=== PATIENT | female | born 1930 | race Caucasian/White ===

== ENCOUNTER 2016-06-20 09:24 | Outpatient (CLI) | payer MEDICARE, OTHER | END 2016-06-20 09:25 | disposition home or self-care (01) | DX: E78.5 Hyperlipidemia, unspecified (principal) ==

== ENCOUNTER 2016-08-07 14:50 | Outpatient (CLI) | payer MEDICARE, OTHER | END 2016-08-07 14:51 | disposition home or self-care (01) | DX: I10 Essential (primary) hypertension (principal); I48.2 Chronic atrial fibrillation ==

== ENCOUNTER 2016-11-14 16:15 | Outpatient (CLI) | payer MEDICARE, OTHER | END 2016-11-14 16:16 | LOC: LAB.R 16:15 | PROVIDERS: ATTEND Internal Medicine | DX: R30.0 Dysuria (principal) | CPT/HCPCS: 87077; 87086 ==

== ENCOUNTER 2016-12-11 11:35 | Outpatient (CLI) | payer MEDICARE, OTHER | END 2016-12-11 11:36 | disposition critical access hospital (66) | LOC: EMS 11:35 | PROVIDERS: ATTEND Surgery | DX: R06.00 Dyspnea, unspecified (principal); R07.1 Chest pain on breathing | CPT/HCPCS: A0425; A0427 ==

== ENCOUNTER 2016-12-11 12:07 | Inpatient (IN) | payer MEDICARE, OTHER ==
--- NOTE | 2016-12-11 12:19 | ED Physician Documentation ---
PD HPI DYSPNEA - Stated complaint Stated Complaint: DIF BREATHING - Chief complaint Chief Complaint: Resp - History obtained from History obtained from: Patient - History of Present Illness Timing - onset: How many days ago (having cough and malaise, some chills the past 2 days. Had been in [facility] for a week for pneumonia and discharged 5 days ago. Was weak and needing walker but felt improved. Mostly in bed since been home. Having cough and increasing dyspnea the past 2 days. She is concerned about recurrent pneumonia. Using MDI occasionally at home. Has not been on oxygen. Pre-illness level of function was ambulatory without assistance , able to get out of house, and no exertional dyspnea.) Timing - onset during: Rest, Light activity Timing - duration: Days (2 days of worsening dyspnea and cough again) Timing - details: Gradual onset, Waxing and waning Inciting event(s): URI (recent Dx pneumonia, in hospital for a week.) Improved by: O2, Sitting up. No: Inhaler/neb Worsened by: Exertion (walking to bathroom), Laying flat, Coughing Associated symptoms: Cough, Wheezing (tightness with breathing intermittently). No: Fever (but feels chills for 2 days), Hemoptysis Similar symptoms before: Diagnosis (pneumonia about 10 days ago) Recently seen: Admitted (see above) Review of Systems Constitutional: reports: Chills. denies: Fever Nose: reports: Congestion Throat: denies: Sore throat Cardiac: denies: Chest pain / pressure Respiratory: reports: Dyspnea, Cough, Wheezing GI: denies: Nausea, Vomiting, Diarrhea : denies: Dysuria, Frequency Skin: reports: Rash (she says she has yeat infection crural area). denies: Lesions Neurologic: reports: Generalized weakness. denies: Focal weakness, Numbness, Near syncope, Altered mental status, Headache Endocrine: reports: Easy bruising / bleeding Immunocompromised: denies: Immunocompromised PD PAST MEDICAL HISTORY - Past Medical History Past Medical History: Yes Cardiovascular: Hypertension, Coronary artery disease, Peripheral Vascular Disease, Atrial fibrillation, Other Respiratory: None Neuro: None Endocrine/Autoimmune: None GI: GERD, Other : Other HEENT: Glaucoma Derm: None - Past Surgical History Past Surgical History: Yes General: Cholecystectomy, Bowel surgery /BLANKET [employer]KER: Hysterectomy, Oophrectomy Cardiovascular: Other HEENT: Cataracts, Tonsil/Adenoidectomy - Present Medications Home Medications: Ambulatory Orders Medication Instructions Recorded Confirmed Hydrochlorothiazide 12.5 mg PO 07/16/13 07/22/14 Losartan [Cozaar] 50 mg PO DAILY 07/16/13 07/22/14 Pravastatin Sodium [Pravachol] 40 mg PO DAILY 07/16/13 12/11/16 Spironolactone 25 mg PO DAILY 07/16/13 12/11/16 Rivaroxaban [Xarelto] 15 mg PO DAILY 07/19/13 12/11/16 Diltiazem HCl [Taztia Xt] 360 mg PO DAILY 12/11/16 12/11/16 Furosemide 12/11/16 - Allergies Allergies/Adverse Reactions: Allergies Allergy/AdvReac Type Severity Reaction Status Date / Time streptomycin Allergy Mild Unknown Verified 07/22/14 10:24 ciprofloxacin [From Cipro] Allergy Unknown Unknown Verified 07/16/13 15:59 Penicillins Allergy Unknown Unknown Verified 07/16/13 15:59 Sulfa (Sulfonamide Allergy Unknown Unknown Verified 07/16/13 15:59 Antibiotics) tetanus toxoid, adsorbed Allergy Unknown Verified 07/22/14 10:24 - Living Situation Living Situation: reports: Alone (has grandchildren with her currently to help) Living Arrangement: reports: At home - Social History Does the pt smoke?: No Smoking Status: Never smoker Does the pt drink ETOH?: No PD ED PE NORMAL - Vitals Vital signs reviewed: Yes - General General: Alert and oriented X 3, No acute distress, Other (frail appearance) - HEENT HEENT: No: Pharynx benign (had uniform redness with some irritation appearance most likely thrush) - Neck Neck: Supple, no meningeal sign, No adenopathy - Cardiac Cardiac: RRR, No murmur - Respiratory Respiratory: No respiratory distress, Other (some congestion right lower and scattered wheezing noted. ) - Abdomen Abdomen: Soft, Non tender - Female Female : Deferred - Rectal Rectal: Deferred - Back Back: No CVA TTP - Derm Derm: Normal color, Warm and dry - Neuro Neuro: Alert and oriented X 3, No motor deficit, Normal speech Results - Vitals Vitals: Vital Signs - 24 hr 12/11/16 12/11/16 12:08 12:58 Temperature 37.7 C H Heart Rate 96 105 H Respiratory 20 22 Rate Blood Pressure 155/67 H O2 Saturation 93 Oxygen O2 Source Nasal cannula - Labs Labs: Laboratory Tests 12/11/16 12/11/16 12/11/16 12:47 12:47 12:47 WBC 21.6 H RBC 4.30 Hgb 12.8 Hct 38.6 MCV 89.7 MCH 29.9 MCHC 33.3 RDW 15.6 H Plt Count 303 MPV 8.3 Neut # 18.6 H Lymph # 0.8 L [place] # 2.1 H Eos # 0.0 Baso # 0.0 Absolute Nucleated RBC 0.00 Nucleated RBCs 0.0 Manual Slide Review Indicated WBC Morphology INCREASED PMNS Platelet Estimate NORMAL (130-450,000) Platelet Morphology NORMAL APPEARANCE RBC Morph Micro Appear NORMAL APPEARANCE Sodium 133 L Potassium 3.1 L Chloride 94 L Carbon Dioxide 28 Anion Gap 11.0 BUN 14 Creatinine 0.8 Estimated GFR (MDRD) 68 L Glucose 124 H Lactic Acid Calcium 7.3 L Total Bilirubin 1.0 AST 19 ALT 12 Alkaline Phosphatase 79 Troponin I < 0.04 B-Natriuretic Peptide Total Protein 6.8 Albumin 3.3 Globulin 3.5 Albumin/Globulin Ratio 0.9 L Lipase 139 H 12/11/16 12/11/16 12:47 12:47 WBC RBC Hgb Hct MCV MCH MCHC RDW Plt Count MPV Neut # Lymph # [place] # Eos # Baso # Absolute Nucleated RBC Nucleated RBCs Manual Slide Review WBC Morphology Platelet Estimate Platelet Morphology RBC Morph Micro Appear Sodium Potassium Chloride Carbon Dioxide Anion Gap BUN Creatinine Estimated GFR (MDRD) Glucose Lactic Acid 1.8 Calcium Total Bilirubin AST ALT Alkaline Phosphatase Troponin I B-Natriuretic Peptide 421 H Total Protein Albumin Globulin Albumin/Globulin Ratio Lipase PD MEDICAL DECISION MAKING - ED course Complexity details: reviewed old records (record from [facility] admission, CXR showing mild interstitial changes, trace effusions, no focal infiltrate. WBC 12 at admission and 10.8 on . Labs otherwise good. Rx with Levaquin in hospital. ), reviewed results, re-evaluated patient, d/w patient, d/w behavioral consultant (Hopsitalist) Departure - Departure Disposition: 66 [facility] DC/Xfer Clinical Impression: Recurrent pneumonia Dyspnea Qualifiers: Dyspnea type: dyspnea on exertion Qualified Code(s): R06.09 - Other forms of dyspnea Leukocytosis Qualifiers: Leukocytosis type: unspecified Qualified Code(s): D72.829 - Elevated white blood cell count, unspecified Condition: Stable Record reviewed to determine appropriate education?: Yes
[2016-12-11] MEDS ORDERED: ACETAMINOPHEN 325 MG TABLET PO STA (12:40)
[2016-12-11] MEDS ORDERED: ALBUTEROL NEB 2.5 MG/3 ML INH STA (12:42)
[2016-12-11] MEDS ORDERED: ACETAMINOPHEN 325 MG TABLET PO ONE ×2 (12:43→12:44)
[2016-12-11] MEDS ORDERED: ALBUTEROL NEB 2.5 MG/3 ML INH ONE (12:54)
[2016-12-11 13:10] LABS: ALBUMIN/GLOBULIN RATIO 0.9 (1.0-2.2); CALCIUM 7.3 mg/dL (8.5-10.3); CREATININE 0.8 mg/dL (0.4-1.0); POTASSIUM 3.1 mmol/L (3.5-5.0); TOTAL PROTEIN 6.8 g/dL (6.7-8.2)
[2016-12-11 13:14] LABS: BASOPHILS % (AUTO) 0.1 %; HCT - HEMATOCRIT 38.6 % (37.0-47.0); HGB - HEMOGLOBIN 12.8 g/dL (12.0-16.0); LYMPHOCYTES # (AUTO) 0.8 10^3/uL (1.5-3.5); LYMPHOCYTES % (AUTO) 3.7 %; MEAN CORPUSCULAR HEMOGLOBIN 29.9 pg (27.0-31.0); MEAN CORPUSCULAR HGB CONC 33.3 g/dL (32.0-36.0); MEAN CORPUSCULAR VOLUME 89.7 fL (81.0-99.0); MEAN PLATELET VOLUME 8.3 fL (7.9-10.8); MONOCYTES # (AUTO) 2.1 10^3/uL (0.0-1.0); MONOCYTES % (AUTO) 9.9 %; NEUTROPHILS # (AUTO) 18.6 10^3/uL (1.5-6.6); NEUTROPHILS % (AUTO) 86.3 %; RED CELL DISTRIBUTION WIDTH 15.6 % (12.0-15.0); UNCORRECTED WHITE BLOOD COUNT 21.6 x10^3/uL; WHITE BLOOD COUNT 21.6 x10^3/uL (4.8-10.8)
[2016-12-11] MEDS ORDERED: ACETAMINOPHEN 160 MG/5 ML SUSP UDC ONE (13:31)
[2016-12-11 13:40] LABS: PLATELET ESTIMATE, MANUAL NORMAL (130-450,000) (NORMAL); PLATELET MORPHOLOGY NORMAL APPEARANCE (NORMAL)
[2016-12-11 13:41] LABS: WBC MORPHOLOGY (MULTIPLE) INCREASED PMNS (NORMAL)
[2016-12-11] MEDS ORDERED: FLUCONAZOLE 100 MG TABLET PO STA (13:49)
[2016-12-11] MEDS ORDERED: cefTRIAXone 1 GM in SODIUM CHLORIDE 0.9% MINIBAG 100 ML IV STA (13:49)
[2016-12-11] MEDS ORDERED: AZITHROMYCIN INJ 500 MG in SODIUM CHLORIDE 0.9% 250 ML IV STA (13:49)
[2016-12-11] MEDS ORDERED: FLUCONAZOLE 100 MG TABLET ONE (13:55)
[2016-12-11] MEDS ORDERED: cefTRIAXone 1 GM VIAL ONE (13:56)
--- NOTE | 2016-12-11 14:03 | XRAY Preliminary Report ---
Exam: XR Chest 2 View PA/LAT IMPRESSION: 1. New mild cardiomegaly. 2. New bibasilar infiltrates with increasing small bilateral pleural effusions. [facility] SITE ID: [id number]
--- NOTE | 2016-12-11 14:11 | XRAY Report ---
EXAM: CHEST RADIOGRAPHY EXAM DATE: 12/11/2016 01:19 PM. CLINICAL HISTORY: Recurrent cough/dyspnea; recent pneumonia. COMPARISON: 07/23/2014. TECHNIQUE: 2 views. FINDINGS: Lungs/Pleura: Increasing small bilateral pleural effusions. New faint bibasilar airspace infiltrates bilaterally. No vascular congestion or pneumothorax. Mediastinum: New mild cardiomegaly. Stable mild tracheal deviation to the right since 02/10/2008 cons istent with benign etiology, such as a substernal goiter. Other: Chronic left rotator cuff tear. IMPRESSION: 1. New mild cardiomegaly. 2. New bibasilar infiltrates with increasing small bilateral pleural effusions. [facility] Referring Provider Line: [phone] SITE ID: [id number]
[2016-12-11] MEDS ORDERED: ONDANSETRON ODT 4 MG TABLET TL PRN (18:37)
[2016-12-11] MEDS ORDERED: POTASSIUM CHLORIDE 20 MEQ TABLET PO SCH (19:00)
[2016-12-11] MEDS ORDERED: FUROSEMIDE 40 MG/4 ML VIAL IVP SCH (19:00)
[2016-12-11] MEDS ORDERED: MAGNESIUM SULFATE 2 GRAM 50 ML IV SCH (19:08)
[2016-12-11] MEDS: SODIUM CHLORIDE FLUSH 0.9% 10 ML SYRINGE IVP SCH (20:12)
[2016-12-11] MEDS: SODIUM CHLORIDE FLUSH 0.9% 10 ML SYRINGE IVP PRN (20:12)
[2016-12-11] MEDS: NYSTATIN CREAM 15 GM TUBE TOP SCH (20:12)
[2016-12-11 23:00] LABS: BILIRUBIN,URINE NEGATIVE (NEGATIVE)
[2016-12-11 23:02] LABS: UA w/ MICROSCOPIC CHARGE YES
[2016-12-11 23:07] LABS: UR CULTURE IF IND NOT INDICATED; WBC,URINE 0-3 /HPF (0-5)
[2016-12-12] MEDS ORDERED: oxyCODONE 5 MG TABLET PO PRN (02:31)
[2016-12-12] MEDS ORDERED: ACETAMINOPHEN 325 MG TABLET PO PRN (02:31)
[2016-12-12] MEDS ORDERED: ZINC OXIDE 20% OINT 28.35 GM TUBE TOP PRN (05:00)
[2016-12-12 05:50] LABS: CALCIUM 6.8 mg/dL (8.5-10.3); CREATININE 0.9 mg/dL (0.4-1.0); POTASSIUM 2.6 mmol/L (3.5-5.0)
[2016-12-12 06:00] LABS: BASOPHILS % (AUTO) 0.5 %; HCT - HEMATOCRIT 33.7 % (37.0-47.0); HGB - HEMOGLOBIN 11.4 g/dL (12.0-16.0); LYMPHOCYTES % (AUTO) 8.1 %; MEAN CORPUSCULAR HEMOGLOBIN 30.5 pg (27.0-31.0); MEAN CORPUSCULAR HGB CONC 33.9 g/dL (32.0-36.0); MEAN CORPUSCULAR VOLUME 89.9 fL (81.0-99.0); MEAN PLATELET VOLUME 8.3 fL (7.9-10.8); MONOCYTES % (AUTO) 12.6 %; NEUTROPHILS % (AUTO) 78.8 %; RED BLOOD COUNT 3.75 10^6/uL (4.20-5.40); RED CELL DISTRIBUTION WIDTH 15.3 % (12.0-15.0); UNCORRECTED WHITE BLOOD COUNT 15.4 x10^3/uL; WHITE BLOOD COUNT 15.4 x10^3/uL (4.8-10.8)
[2016-12-12 06:24] LABS: BAND NEUTROPHILS % (MANUAL) 6 %; LYMPHOCYTES % (MANUAL) 11 %; NEUTROPHILS % (MANUAL) 74 %; NP AUTO DIFFERENTIAL? YES; NP MAN DIFFERENTIAL? NO; PLATELET ESTIMATE, MANUAL NORMAL (130-450,000) (NORMAL); TOTAL CELLS COUNTED 100
[2016-12-12] MEDS: SODIUM CHLORIDE FLUSH 0.9% 10 ML SYRINGE IVP SCH ×3 (06:38→18:05)
[2016-12-12] MEDS: POTASSIUM CHLOR 10 MEQ/100 ML 100 ML IV SCH ×2 (07:14→09:05)
[2016-12-12] MEDS: SODIUM CHLORIDE FLUSH 0.9% 10 ML SYRINGE IVP PRN ×2 (07:15→23:44)
[2016-12-12 07:27] LABS: MAGNESIUM 1.1 mg/dL (1.7-2.8); PHOSPHORUS 3.7 mg/dL (2.5-4.6)
[2016-12-12 07:45] LABS: VBG PH 7.478 (7.31-7.41)
[2016-12-12 07:46] LABS: CALCIUM, IONIZED 0.87 mmol/L (1.15-1.33)
--- NOTE | 2016-12-12 08:25 | HISTORY & PHYSICAL EXAMINATION ---
CHIEF COMPLAINT: Increased shortness of breath and cough. HISTORY OF PRESENT ILLNESS: The patient is an 86-year-old female who presents with increased shortness of breath, poor appetite, and chest discomfort. She has a history of paroxysmal atrial fibrillation on rivaroxaban, hypertension, peripheral vascular disease, and was recently admitted to [facility] for a diagnosis of pneumonia from November 29 to December 06. The patient was discharged home with her grandchildren who are staying at her house to provide 24-7 supervision. The patient states she has been sleeping on the sofa because she is unable to get upstairs to her bedroom. She reports persistent shortness of breath "all the way across her chest" and states "it just doesn't feel right. " She has had a poor appetite and states she is not eating much. She denies dysphagia. She thinks that her shortness of breath may be worse with lying down , but has some difficulty providing details. She does not think she has had a fever. Taking a deep breath causes a "little pain." She has had no nausea or vomiting, some diarrhea. She reports chronic lower extremity edema and a painful , raw rash between her legs. She has been using cream for this with no improvement. ALLERGIES: INCLUDE 1. PENICILLIN WHICH SHE STATES CAUSES HER THROAT TO SWELL UP. 2. AMLODIPINE. 3. SULFA ANTIBIOTICS. 4. TETANUS. 5. CIPROFLOXACIN WHICH CAUSES A RASH. MEDICATIONS: Include 1. Albuterol. 2. Famotidine. 3. Tylenol. 4. Lasix 40 mg daily as needed. 5. Losartan 50 mg twice a day. 6. Metoprolol 25 mg daily. 7. Pravastatin 40 mg daily. 8. Rivaroxaban 15 mg daily. 9. Timolol maleate 0.5% ophthalmic solution. 10. Antibiotics completed 2 days ago include levofloxacin and metronidazole. 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 PAST SURGICAL HISTORY: Includes ex lap for small bowel obstruction in 2013, appendectomy, carotid endarterectomy, laparotomy, rectal prolapse repair, total abdominal hysterectomy and BSO. SOCIAL HISTORY: The patient is . She lives independently. Has family in the area, grandchildren are staying with her. She has a remote 15-pack year history, quit in 1985. Alcohol occasional. FAMILY HISTORY: Mother had cirrhosis, father had heart disease. REVIEW OF SYSTEMS: GENERAL: The patient denies weight loss. She does have weakness. Denies fever or night sweats. HEENT: Negative. CARDIOVASCULAR: Denies chest pain, has chronic lower extremity edema which is unchanged. RESPIRATORY: See HPI. GI: Negative. GENITOURINARY: Chronic incontinence. Has no dysuria or frequency. MUSCULOSKELETAL: Negative. SKIN: Reports rash in groin which is "raw and painful" per patient. PSYCHIATRIC: Denies depression or anxiety. ENDOCRINE: Negative. EXAMINATION: VITAL SIGNS: Temperature is 37.3, heart rate 91 to 105, blood pressure 142/60, respiratory rate 16, oxygen saturation 93% on room air. GENERAL: The patient is a pleasant elderly female who appears stated age. She is alert, oriented, in no acute distress. HEENT: Pupils are equal, round, reactive to light. EOMI, anicteric. No nystagmus. Oropharynx is benign. NECK: Supple without adenopathy. HEART: Tachycardic, regular, no murmurs, rubs, or gallops appreciated. LUNGS: No crackles, rhonchi, or wheeze appreciated. The patient did have coughing paroxysm with taking a deep inspiration. ABDOMEN: Soft, nontender, nondistended. No hepatosplenomegaly. Positive bowel tones. EXTREMITIES: 2 to 3+ pitting edema. No clubbing or cyanosis. Nontender. SKIN: The patient has an erythematous rash in her groin. NEUROLOGIC: The patient is alert and oriented x3. She is moving all extremities and has normal speech. PSYCHIATRIC: Normal affect, good eye contact. LABORATORY DATA: Sodium is 133, potassium 3.1, BUN is 14, creatinine 0.8, glucose is 124, lactate is 1.8. BNP 421, albumin 3.3. White blood count is 21.6 , hematocrit is 38.6, platelet count is 303. Chest x-ray which was personally reviewed and interpreted shows small bilateral pleural effusions. No obvious infiltrate. Mild cardiomegaly with no obvious vascular congestion. ASSESSMENT AND PLAN: The patient is an 86-year-old female who was recently admitted to [facility] and treated for pneumonia. She has been home since December 06 and feels that she has declined. Continues to have shortness of breath, weakness, and poor appetite. Will order physical therapy and occupational consults. 1. Failure to thrive. Patient is having difficulty getting around, unable to take the stairs to her room and has been sleeping on the couch. She reports increased neck, back and right shoulder pain. Will order PT/ OT consult. Would likely benefit from retirement facility vs [facility] pt/ot. 2. Pneumonia. Patient recently treated for community acquired pneumonia, cxr not impressive for persistent or recurrent pna. She does c/o shortness of breath. No hypoxia. Chest x-ray does not suggest worsening of recently treated pneumonia. She did receive ceftriaxone and azithromycin in the Emergency Department. Will monitor overnight prior to determining if antibiotics need to be continued. She does have an ALLERGY TO PENICILLIN WHICH CAUSES THROAT SWELLING. I will consider an alternative antibiotic therapy if indicated. Repeat CBC in the a.m. 3. Mild cardiomegaly and elevated BNP and lower extremity edema. I suspect patient has some degree of decompensated congestive heart failure. Will avoid IV fluid, give Lasix 40 mg IV x1, low salt diet. Request cardiac echo to further evaluate. I do not see that this has been done previously. 4. Hypokalemia and hypomagnasemia replace IV and PO 5. CODE STATUS: THE PATIENT IS DO NOT RESUSCITATE PER DISCUSSION WITH PATIENT. AMENA
[2016-12-12] MEDS: cefTRIAXone 1 GM in SODIUM CHLORIDE 0.9% MINIBAG 100 ML IV SCH (08:53)
[2016-12-12] MEDS: POLYETHYLENE GLYCOL 3350 17 GM PACKET PO SCH (08:53)
[2016-12-12] MEDS: NYSTATIN CREAM 15 GM TUBE TOP SCH ×2 (08:53→22:27)
[2016-12-12] MEDS: [UNRECOGNIZED DRUG - OTHER] PO SCH (08:53)
[2016-12-12] MEDS: PRAVASTATIN 40 MG TABLET PO SCH (08:54)
[2016-12-12] MEDS: SPIRONOLACTONE 25 MG TABLET PO SCH (08:54)
[2016-12-12] MEDS: RIVAROXABAN 15 MG TABLET PO SCH (08:54)
--- NOTE | 2016-12-12 12:17 | PROVIDER PROGRESS NOTE ---
Assessment/Plan - Problem List (1) Hypomagnesemia Assessment/Plan: see below (2) Hypokalemia due to loss of potassium Assessment/Plan: see below (3) Hx: recurrent pneumonia Assessment/Plan: see below (4) Atrial fibrillation Assessment/Plan: Plan Replace k/mag IV and PO, repeat labs at 6pm PT/OT consult and [facility] today and resume outpt oral lasix Continue Diltiazem 120 mg po daily. change to inpt status, due to electrolyte imbalance and need for IV replacement and monitoring - Current Meds Current Meds: Current Medications Generic Name Dose Route Start Last Admin Trade Name Freq PRN Reason Stop Dose Admin Diltiazem HCl 120 mg 12/12/16 09:00 12/12/16 08:53 Cardizem Cd PO 120 mg DAILY CARMELO Administration Ceftriaxone Sodium 1 gm/ 100 mls @ 200 mls/hr 12/12/16 09:00 12/12/16 08:53 Sodium Chloride IV 200 mls/hr DAILY CARMELO Administration Nystatin 1 applic 12/11/16 21:00 12/12/16 08:53 Mycostatin Cream TOP 1 applic BID CARMELO Administration Polyethylene Glycol 17 gm 12/12/16 09:00 12/12/16 08:53 Miralax PO 17 gm DAILY CARMELO Administration Pravastatin Sodium 40 mg 12/12/16 09:00 12/12/16 08:54 Pravachol PO 40 mg DAILY CARMELO Administration Rivaroxaban 15 mg 12/12/16 09:00 12/12/16 08:54 Xarelto PO 15 mg DAILY CARMELO Administration Sodium Chloride 10 ml 12/11/16 15:24 12/12/16 07:15 Normal Saline Flush 0.9% IVP 10 ml PRN PRN Administration NEEDED PER PROVIDER ORDERS Sodium Chloride 10 ml 12/11/16 22:00 12/12/16 06:38 Normal Saline Flush 0.9% IVP 10 ml Q8HR CARMELO Administration Spironolactone 25 mg 12/12/16 09:00 12/12/16 08:54 Aldactone PO 25 mg DAILY CARMELO Administration - Lab Result Lab results reviewed: Yes Fish Bone Diagrams: 12/12/16 05:30 12/12/16 05:30 - Additional Planning My Orders: My Active Orders 12/12/16 09:00 cefTRIAXone [Rocephin] 1 gm Sodium Chloride 0.9% Minibag [Normal Saline 0.9% Minibag] 100 ml IV DAILY 12/12/16 12:04 Potassium Chloride [K-Dur] 20 meq PO TID 12/12/16 18:00 Chem 8 [BMP - BASIC METABOLIC PANEL] [CHEM] Timed MAGNESIUM [CHEM] Timed Subjective - Subjective Patient Reports: Resting Comfortably (pt states sob is at baseline and that her sob yesterday was caused by her neck/ shoulder pain that was worse after sleeping on her couch for the past couple days.) Objective Vital Signs: Vital Signs - 24 hr 12/12/16 07:56 Temperature 37.0 C Heart Rate [ 109 H Brachial] Respiratory 20 Rate Blood Pressure 119/73 [Left Brachial artery] O2 Saturation 92 Oxygen O2 Source Room air General: Alert, Oriented x3 Cardiovascular: Other (tachy, irregular) Respiratory: Chest non-tender, No respiratory distress, Breath sounds nml Abdomen: Normal bowel sounds, Soft, No tenderness Extremities: No edema, No tenderness/swelling - Results Results: Laboratory Results WBC 15.4 x10^3/uL (4.8-10.8) H 12/12/16 05:30 RBC 3.75 10^6/uL (4.20-5.40) L 12/12/16 05:30 Hgb 11.4 g/dL (12.0-16.0) L 12/12/16 05:30 Hct 33.7 % (37.0-47.0) L 12/12/16 05:30 MCV 89.9 fL (81.0-99.0) 12/12/16 05:30 MCH 30.5 pg (27.0-31.0) 12/12/16 05:30 MCHC 33.9 g/dL (32.0-36.0) 12/12/16 05:30 RDW 15.3 % (12.0-15.0) H 12/12/16 05:30 Plt Count 252 10^3/uL (130-450) 12/12/16 05:30 MPV 8.3 fL (7.9-10.8) 12/12/16 05:30 Neut # Not Reportable 12/12/16 05:30 Lymph # Not Reportable 12/12/16 05:30 [place] # Not Reportable 12/12/16 05:30 Eos # Not Reportable 12/12/16 05:30 Baso # Not Reportable 12/12/16 05:30 Absolute Nucleated RBC Not Reportable 12/12/16 05:30 Total Counted 100 12/12/16 05:30 Band Neuts % (Manual) 6 % (0-10) 12/12/16 05:30 Neutrophils # (Manual) 12.3 10^3/uL (1.5-6.6) H 12/12/16 05:30 Lymphocytes # (Manual) 1.7 10^3/uL (1.5-3.5) 12/12/16 05:30 Monocytes # (Manual) 1.4 10^3/uL (0.0-1.0) H 12/12/16 05:30 Nucleated RBCs Not Reportable 12/12/16 05:30 Differential Comment MANUAL DIFFERENTIAL 12/12/16 05:30 Manual Slide Review Indicated 12/11/16 12:47 WBC Morphology INCREASED PMNS (NORMAL) 12/11/16 12:47 Platelet Estimate NORMAL (130-450,000) (NORMAL) 12/12/16 05:30 Platelet Morphology NORMAL APPEARANCE (NORMAL) 12/11/16 12:47 RBC Morph Micro Appear NORMAL APPEARANCE (NORMAL) 12/12/16 05:30 VBG pH 7.478 (7.31-7.41) H 12/12/16 07:08 Ionized Calcium 0.87 mmol/L (1.15-1.33) L 12/12/16 07:08 Sodium 135 mmol/L (135-145) 12/12/16 05:30 Potassium 2.6 mmol/L (3.5-5.0) L 12/12/16 05:30 Chloride 91 mmol/L (101-111) L 12/12/16 05:30 Carbon Dioxide 31 mmol/L (21-32) 12/12/16 05:30 Anion Gap 13.0 (6-13) 12/12/16 05:30 BUN 13 mg/dL (6-20) 12/12/16 05:30 Creatinine 0.9 mg/dL (0.4-1.0) 12/12/16 05:30 Estimated GFR (MDRD) 60 (>89) L 12/12/16 05:30 Glucose 90 mg/dL (70-100) 12/12/16 05:30 Lactic Acid 1.8 mmol/L (0.5-2.2) 12/11/16 12:47 Calcium 6.8 mg/dL (8.5-10.3) L 12/12/16 05:30 Phosphorus 3.7 mg/dL (2.5-4.6) 12/12/16 07:08 Magnesium 1.1 mg/dL (1.7-2.8) L 12/12/16 07:08 Total Bilirubin 1.0 mg/dL (0.2-1.0) 12/11/16 12:47 AST 19 IU/L (10-42) 12/11/16 12:47 ALT 12 IU/L (10-60) 12/11/16 12:47 Alkaline Phosphatase 79 IU/L (42-121) 12/11/16 12:47 Troponin I < 0.04 ng/mL (<0.49) 12/11/16 12:47 B-Natriuretic Peptide 421 pg/mL (5-100) H 12/11/16 12:47 Total Protein 6.8 g/dL (6.7-8.2) 12/11/16 12:47 Albumin 3.3 g/dL (3.2-5.5) 12/11/16 12:47 Globulin 3.5 g/dL (2.1-4.2) 12/11/16 12:47 Albumin/Globulin Ratio 0.9 (1.0-2.2) L 12/11/16 12:47 Lipase 139 U/L (22-51) H 12/11/16 12:47 Urine Color YELLOW 12/11/16 22:40 Urine Clarity HAZY (CLEAR) 12/11/16 22:40 Urine pH 6.0 PH (5.0-7.5) 12/11/16 22:40 Ur Specific [place] <=1.005 (1.002-1.030) 12/11/16 22:40 Urine Protein NEGATIVE mg/dL (NEGATIVE) 12/11/16 22:40 Urine Glucose (UA) NEGATIVE mg/dL (NEGATIVE) 12/11/16 22:40 Urine Ketones NEGATIVE mg/dL (NEGATIVE) 12/11/16 22:40 Urine Occult Blood NEGATIVE (NEGATIVE) 12/11/16 22:40 Urine Nitrite NEGATIVE (NEGATIVE) 12/11/16 22:40 Urine Bilirubin NEGATIVE (NEGATIVE) 12/11/16 22:40 Urine Urobilinogen 0.2 (NORMAL) E.U./dL (NORMAL) 12/11/16 22:40 Ur Leukocyte Esterase TRACE (NEGATIVE) H 12/11/16 22:40 Urine RBC 0-5 /HPF (0-5) 12/11/16 22:40 Urine WBC 0-3 /HPF (0-5) 12/11/16 22:40 Ur Squamous Epith Cells MANY Squamous (<= Few) H 12/11/16 22:40 Urine Bacteria Few /HPF (None Seen) 12/11/16 22:40 Ur Microscopic Review INDICATED 12/11/16 22:40 Urine Culture Comments NOT INDICATED 12/11/16 22:40 - Procedures Procedures: Procedures ENDOSC POLYPECTOMY OF LG INTEST (07/19/13)
[2016-12-12] MEDS: POTASSIUM CHLORIDE 20 MEQ TABLET PO SCH ×3 (12:37→22:28)
[2016-12-12] MEDS ORDERED: MAGNESIUM SULFATE 1 GM in SODIUM CHLORIDE 0.9% 50 ML IV ONE (16:30)
[2016-12-12 20:14] LABS: CALCIUM 6.9 mg/dL (8.5-10.3); CREATININE 1.1 mg/dL (0.4-1.0); MAGNESIUM 1.6 mg/dL (1.7-2.8); POTASSIUM 3.6 mmol/L (3.5-5.0)
[2016-12-12] MEDS ORDERED: MAGNESIUM SULFATE 2 GRAM 50 ML IV SCH (22:47)
[2016-12-12] MEDS ORDERED: CALCIUM GLUCONATE 2,000 MG in SODIUM CHLORIDE 0.9% 100ML 100 ML IV SCH (22:48)
[2016-12-13] MEDS: POTASSIUM CHLORIDE 20 MEQ TABLET PO SCH ×2 (05:50→13:44)
[2016-12-13] MEDS: SODIUM CHLORIDE FLUSH 0.9% 10 ML SYRINGE IVP SCH (05:50)
[2016-12-13 06:35] LABS: BUN - BLOOD UREA NITROGEN 16 mg/dL (6-20); CALCIUM 7.1 mg/dL (8.5-10.3); CARBON DIOXIDE - CO2 31 mmol/L (21-32); CHLORIDE 94 mmol/L (101-111); CREATININE 0.9 mg/dL (0.4-1.0); GFR - MDRD 60 (>89); GLUCOSE 93 mg/dL (70-100); POTASSIUM 3.3 mmol/L (3.5-5.0); SODIUM 134 mmol/L (135-145)
[2016-12-13 06:44] LABS: CALCIUM, IONIZED 0.91 mmol/L (1.15-1.33); VBG PH 7.471 (7.31-7.41)
[2016-12-13 06:58] LABS: MAGNESIUM 1.9 mg/dL (1.7-2.8); PHOSPHORUS 3.1 mg/dL (2.5-4.6)
[2016-12-13] MEDS: RIVAROXABAN 15 MG TABLET PO SCH (08:22)
[2016-12-13] MEDS: cefTRIAXone 1 GM in SODIUM CHLORIDE 0.9% MINIBAG 100 ML IV SCH (08:23)
[2016-12-13] MEDS: [UNRECOGNIZED DRUG - OTHER] PO SCH (08:23)
[2016-12-13] MEDS: SPIRONOLACTONE 25 MG TABLET PO SCH (08:23)
[2016-12-13] MEDS: PRAVASTATIN 40 MG TABLET PO SCH (08:23)
[2016-12-13] MEDS: NYSTATIN CREAM 15 GM TUBE TOP SCH (08:25)
[2016-12-13] MEDS: POLYETHYLENE GLYCOL 3350 17 GM PACKET PO SCH (08:26)
[2016-12-13] MEDS ORDERED: POTASSIUM CHLORIDE 20 MEQ TABLET PO SCH (10:45)
--- NOTE | 2016-12-13 12:00 | Discharge Plan ---
Discharge Plan Disposition: 03 SNF DC/Xfer Condition: Stable Diet: Low Sodium Activity Restrictions: No Restrictions Weight Bearing: Full Weight No Smoking: If you smoke, Please STOP! Call for help.
[2016-12-13 14:36] VITALS: BP 142/74
--- NOTE | 2016-12-15 09:56 | DISCHARGE SUMMARY ---
DISCHARGE DIAGNOSES: 1. Hypokalemia. 2. Hypomagnesemia. 3. Failure to thrive and generalized weakness. 4. Recent history of pneumonia. 5. Atrial fibrillation. BRIEF HISTORY OF PRESENT ILLNESS: The patient is an 86-year-old female who presented with complaint of increased shortness of breath, poor appetite and chest discomfort. She had been discharged home from [facility] where she had been treated for pneumonia as an inpatient for approximately 1 week. The patient went home, was unable to get upstairs to her bedroom and was sleeping on the couch. She had significant discomfort in her back, neck, and shoulder. HOSPITAL COURSE: 1. Electrolyte abnormalities. The patient had significant hypokalemia and hypomagnesemia which required IV replacement and frequent monitoring throughout her hospital course. On discharge her potassium was 3.3, up from a low of 2.6. Her magnesium is within normal limits up from 0.8 on admission. 2. History of recent pneumonia. The patient was treated for pneumonia at [facility]. On admission she had an elevated white blood count. It did not appear that her pneumonia had worsened or was even persistent on her chest x -ray. She was continued on ceftriaxone empirically. Will not be discharged on antibiotics. 3. Atrial fibrillation. The patient was continued on diltiazem and Xarelto. She did appear a little volume overloaded on admission and received Lasix 40 mg IV x1. She also had a cardiac echo. Preliminary report with EF of greater than 75% , and mild pulmonary hypertension. Final report is pending. 4. The patient had a groin yeast infection and was treated with Nystatin and should be continued. On the day of discharge the patient was teary and complained of depression. She agreed to start Lexapro 10 mg daily. MEDICATIONS: NEW PRESCRIPTIONS FOR: 1. Tylenol 650 mg every 4 hours as needed. 2. Nystatin cream topically to groin. 3. Potassium chloride 20 meq daily. CONTINUE: 4. Albuterol. 5. Diltiazem 360 mg daily. 6. Pepcid 20 mg twice daily. 7. Lasix 20 mg daily, decreased from 40. 8. Xalatan Ophthalmic drops. 9. Losartan 50 mg daily. 10. Metoprolol 25 mg daily. 11. Pravastatin 40 mg daily. 12. Xarelto 15 mg daily. 13. Timoptic drops. DISCONTINUE SPIRONOLACTONE. Omeprazole 20 mg daily. Greater than 30 minutes was spent on discharge of patient. MTDD
== END 2016-12-13 14:36 | DRG 641 ==
LOC: EDUNIT# → ED 12:07 → MS 15:19 → OBSVTOIN 12-12 07:54 → MS 12-12 09:34
PROVIDERS: ADMIT Internal Medicine; ATTEND Internal Medicine
DX: E87.6 Hypokalemia (principal); E83.42 Hypomagnesemia; R62.7 Adult failure to thrive; I48.0 Paroxysmal atrial fibrillation; I11.9 Hypertensive heart disease without heart failure; Z87.01 Personal history of pneumonia (recurrent); B37.2 Candidiasis of skin and nail; E87.1 Hypo-osmolality and hyponatremia; I73.00 Raynaud's syndrome without gangrene; D72.829 Elevated white blood cell count, unspecified; K21.9 Gastro-esophageal reflux disease without esophagitis; H40.9 Unspecified glaucoma; R60.0 Localized edema; R21 Rash and other nonspecific skin eruption; I73.9 Peripheral vascular disease, unspecified; R32 Unspecified urinary incontinence; E87.70 Fluid overload, unspecified; Z79.51 Long term (current) use of inhaled steroids; Z79.02 Long term (current) use of antithrombotics/antiplatelets; Z79.899 Other long term (current) drug therapy; Z87.891 Personal history of nicotine dependence; Z86.718 Personal history of other venous thrombosis and embolism; Z66 Do not resuscitate
CPT/HCPCS: 36415; 71020; 80048; 80053; 81001; 81003; 82330; 83605; 83690; 83735; 83880; 84100; 84484; 85025; 87040; 87086; 93306; 94640; 96365; 96374; 96375; 99284; 99285

== ENCOUNTER 2016-12-16 08:00 | Outpatient (CLI) | payer MEDICARE, OTHER ==
[2016-12-16 20:29] LABS: BASOPHILS % (AUTO) 0.5 %; EOSINOPHILS % (AUTO) 0.2 %; HCT - HEMATOCRIT 33.9 % (37.0-47.0); HGB - HEMOGLOBIN 11.4 g/dL (12.0-16.0); LYMPHOCYTES # (AUTO) 1.3 10^3/uL (1.5-3.5); LYMPHOCYTES % (AUTO) 13.1 %; MEAN CORPUSCULAR HEMOGLOBIN 30.3 pg (27.0-31.0); MEAN CORPUSCULAR HGB CONC 33.8 g/dL (32.0-36.0); MEAN CORPUSCULAR VOLUME 89.8 fL (81.0-99.0); MEAN PLATELET VOLUME 8.6 fL (7.9-10.8); MONOCYTES # (AUTO) 1.2 10^3/uL (0.0-1.0); MONOCYTES % (AUTO) 12.5 %; NEUTROPHILS # (AUTO) 7.3 10^3/uL (1.5-6.6); NEUTROPHILS % (AUTO) 73.7 %; NUCLEATED RED BLOOD CELLS AUTO 0.1 /100WBC; RED BLOOD COUNT 3.77 10^6/uL (4.20-5.40); RED CELL DISTRIBUTION WIDTH 15.3 % (12.0-15.0); UNCORRECTED WHITE BLOOD COUNT 9.8 x10^3/uL; WHITE BLOOD COUNT 9.8 x10^3/uL (4.8-10.8)
== END 2016-12-16 08:01 | disposition home or self-care (01) ==
LOC: LAB.R 08:00
DX: N18.9 Chronic kidney disease, unspecified (principal); D64.9 Anemia, unspecified; E83.42 Hypomagnesemia
CPT/HCPCS: 80048; 83735; 85025

== ENCOUNTER 2016-12-18 07:30 | Outpatient (CLI) | payer MEDICARE, OTHER ==
[2016-12-18 10:11] LABS: CALCIUM 9.1 mg/dL (8.5-10.3); MAGNESIUM 1.1 mg/dL (1.7-2.8); POTASSIUM 4.5 mmol/L (3.5-5.0)
== END 2016-12-18 07:31 | disposition home or self-care (01) ==
LOC: LAB.R 07:30
DX: N18.9 Chronic kidney disease, unspecified (principal)
CPT/HCPCS: 80048; 83735

== ENCOUNTER 2016-12-18 10:05 | Outpatient (CLI) | payer MEDICARE, OTHER | END 2016-12-18 10:06 | disposition home or self-care (01) | LOC: LAB.R 10:05 | DX: A04.7 Enterocolitis due to Clostridium difficile (principal) | CPT/HCPCS: 80048; 83735; 87493 ==

== ENCOUNTER 2017-02-04 20:37 | Outpatient (CLI) | payer MEDICARE, OTHER | END 2017-02-04 20:38 | disposition critical access hospital (66) | LOC: EMS 20:37 | PROVIDERS: ATTEND Surgery | DX: M25.552 Pain in left hip (principal); W01.198A Fall on same level from slipping, tripping and stumbling with subsequent striking against other object, initial encounter; Y93.89 Activity, other specified; Y92.018 Other place in single-family (private) house as the place of occurrence of the external cause | CPT/HCPCS: A0425; A0427 ==

== ENCOUNTER 2017-02-04 21:08 | Inpatient (IN) | payer MEDICARE, OTHER ==
[2017-02-04] MEDS ORDERED: HYDROmorphone 1 MG/ML CARPUJECT IVP STA ×3 (21:22→23:16)
--- NOTE | 2017-02-04 21:25 | ED Physician Documentation ---
PD HPI LOWER EXT INJURY - Stated complaint Stated Complaint: GLF, LEFT HIP PAIN, NECK PAIN - Chief complaint Chief Complaint: Trauma Ext - History obtained from History obtained from: Patient, Family, EMS - History of Present Illness PD HPI LOW EXT INJURY LOCATION: Left, Hip Type of injury: Fall Where injury occurred: Home Timing - onset: How many hours ago (1) Timing - duration: Hours (1) Timing - details: Abrupt onset Pain level max: 8 Pain level now: 8 Improved by: Rest, Immobilization Worsened by: Moving, Palpating Associated symptoms: No: Weakness, Numbness, Tingling, Swelling, Discolored Contributing factors: Anticoagulated (xarelto). No: Prosthetic joint Similar symptoms before: Has not had sx before - Additional information Additional information: Patient tripped and fell at home, landing on the left hip. She is unsure if she hit her head or not. She also complained of mild neck pain. Review of Systems Ten Systems: 10 systems reviewed and negative Constitutional: denies: Fever, Chills Ears: denies: Ear pain Nose: denies: Rhinorrhea / runny nose, Congestion, Epistaxis Cardiac: denies: Chest pain / pressure Respiratory: denies: Cough GI: denies: Nausea, Vomiting, Diarrhea Skin: denies: Rash Musculoskeletal: denies: Back pain Neurologic: reports: Head injury (possible). 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, Oophrectomy Cardiovascular: Other HEENT: Cataracts, Tonsil/Adenoidectomy - Present Medications Home Medications: Ambulatory Orders Medication Instructions Recorded Confirmed Losartan [Cozaar] 25 mg PO DAILY 07/16/13 02/04/17 Pravastatin Sodium [Pravachol] 40 mg PO DAILY 07/16/13 02/04/17 Rivaroxaban [Xarelto] 15 mg PO DAILY 07/19/13 02/04/17 Diltiazem HCl [Taztia Xt] 360 mg PO DAILY 12/11/16 02/04/17 Metoprolol Succinate [Toprol Xl] 25 mg PO DAILY 12/11/16 02/04/17 Omeprazole 20 mg PO DAILY 12/11/16 02/04/17 Albuterol Sulfate [Proair Hfa 2 puffs INH Q6H PRN 12/12/16 12/12/16 Inhaler] Famotidine [Pepcid] 20 mg PO BID 12/12/16 02/04/17 Furosemide 20 mg PO DAILY 12/12/16 02/04/17 Latanoprost 0.005% Ophth Drops 1 drops EACHEYE QPM 12/12/16 02/04/17 [Xalatan Ophth Drops] Timolol 0.5% Ophth Drops [Timoptic 1 drops EACHEYE BID 12/12/16 02/04/17 0.5% Ophth Drops] Nystatin Cream [Mycostatin Cream] 1 applic TOP BID tube 12/13/16 02/04/17 Potassium Chloride [K-Dur] 20 meq PO DAILYWM tablet 12/13/16 02/04/17 - Allergies Allergies/Adverse Reactions: Allergies Allergy/AdvReac Type Severity Reaction Status Date / Time streptomycin Allergy Mild Unknown Verified 02/04/17 21:15 ciprofloxacin [From Cipro] Allergy Unknown Unknown Verified 02/04/17 21:15 Penicillins Allergy Unknown Unknown Verified 02/04/17 21:15 Sulfa (Sulfonamide Allergy Unknown Unknown Verified 02/04/17 21:15 Antibiotics) tetanus toxoid, adsorbed Allergy Unknown Verified 02/04/17 21:15 - Social History Does the pt smoke?: No Smoking Status: Never smoker Does the pt drink ETOH?: No - Immunizations Immunizations are current?: Yes - POLST Patient has POLST: No PD ED PE NORMAL - Vitals Vital signs reviewed: Yes - General General: Alert and oriented X 3, No acute distress, Well developed/nourished - HEENT HEENT: Atraumatic, PERRL, EOMI, Ears normal, Moist mucous membranes - Neck Neck: Supple, no meningeal sign, Other (mild upper c-spine TTP.) - Cardiac Cardiac: RRR, Strong equal pulses - Respiratory Respiratory: No respiratory distress, Clear bilaterally - Abdomen Abdomen: Soft, Non tender - Back Back: No spinal TTP - Derm Derm: Warm and dry - Extremities Extremities: Other (L hip - TTP, leg is externally rotated and shortened. o/w normal exam. 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, No motor deficit, No sensory deficit, Normal speech GCS Score: 15 - Psych Psych: Normal mood, Normal affect Results - Vitals Vitals: Vital Signs - 24 hr 02/04/17 02/04/17 21:11 22:38 Temperature 36.4 C L Heart Rate 72 62 Respiratory 12 16 Rate Blood Pressure 115/57 L 147/59 H O2 Saturation 97 97 Oxygen O2 Source Room air - EKG (time done) 2259 Rate: Rate (enter#) (72) Rhythm: Atrial fibrillation [place]: Normal QRS: Normal Ischemia: Normal ST segments - Labs Labs: Laboratory Tests 02/04/17 02/04/17 21:58 21:58 WBC 8.4 RBC 4.06 L Hgb 12.9 Hct 38.6 MCV 95.2 MCH 31.8 H MCHC 33.4 RDW 18.6 H Plt Count 167 MPV 9.0 Neut # 5.4 Lymph # 1.9 Leon # 1.0 Eos # 0.0 Baso # 0.0 Absolute Nucleated RBC 0.00 Nucleated RBCs 0.0 Sodium 137 Potassium 4.3 Chloride 103 Carbon Dioxide 23 Anion Gap 11.0 BUN 22 H Creatinine 1.2 H Estimated GFR (MDRD) 43 L Glucose 104 H Calcium 8.6 Total Bilirubin 0.6 AST 20 ALT 14 Alkaline Phosphatase 81 Total Protein 7.2 Albumin 4.1 Globulin 3.1 Albumin/Globulin Ratio 1.3 Lipase 48 - Rads (name of study) ct head Radiology: Prelim report reviewed, EMP read contemporaneously, See rad report ( Generalized age-related cortical atrophic changes without evidence of acute intracranial abnormality) ct c-spine Radiology: Prelim report reviewed, EMP read contemporaneously, See rad report ( No evidence of acute fracture or malalignment. No prevertebral soft tissue swelling. 2. Moderate multilevel degenerative spondylosis, as detailed above. Thyroid gland is enlarged with a low prominent calcified heterogeneous, primarily hypodense lesion measuring 3.7 x 3.1 cm arising from the inferior aspect of the left lobe. As CT is nonspecific for benign versus malignant etiology, recommend further follow-up with thyroid ultrasound unless already done, as clinically indicated. This may be done on a nonemergent basis) L hip xray Radiology: Prelim report reviewed, EMP read contemporaneously, See rad report ( Displaced left femoral neck fracture. ) cxr Radiology: Prelim report reviewed, EMP read contemporaneously, See rad report ( No acute disease. ) PD MEDICAL DECISION MAKING - ED course Complexity details: reviewed results, re-evaluated patient, considered differential, d/w patient, d/w family, d/w information consultant ED course: Patient is an 86-year-old female who presents to the emergency department after a fall today. She did have neck pain was unclear if she hit her head. She is on Xarelto so a head CT was performed. No acute findings on head CT. Also had neck pain, no acute findings on cervical spine CT. Found to have a left femoral neck fracture. Consulted orthopedics, Dr. Melissa who will evaluate the patient in the morning. Also consulted Dr. Munoz, hospitalist who accepts. Pain well controlled. Patient does not want a Islas catheter at this time. Discussed the case with her grandson as well. This document was made in part using voice recognition software. While efforts are made to proofread this document, sound alike and grammatical errors may occur. Departure - Departure Disposition: [facility] DC/Xfer Clinical Impression: Femoral neck fracture Qualifiers: Encounter type: initial encounter Fracture type: closed Laterality: left Qualified Code(s): S72.002A - Fracture of unspecified part of neck of left femur , initial encounter for closed fracture Condition: Stable Discharge Date/Time: 02/05/17 00:01
[2017-02-04] MEDS ORDERED: HYDROmorphone 1 MG/ML CARPUJECT ONE ×3 (21:29→23:20)
--- NOTE | 2017-02-04 22:01 | CT Preliminary Report ---
Exam: CT Head W/O IMPRESSION: Generalized age-related cortical atrophic changes without evidence of acute intracranial abnormality. [facility] SITE ID: [id number]
--- NOTE | 2017-02-04 22:04 | CT Report ---
EXAM: CT HEAD EXAM DATE: 02/04/2017 09:53 PM. CLINICAL HISTORY: Fall, head injury. COMPARISON: None. TECHNIQUE: Multiaxial CT images were obtained from the foramen magnum to the vertex. IV contrast: Non e. Reformats: Coronal. In accordance with CT protocol optimization, one or more of the following dose reduction techniques w ere utilized for this exam: automated exposure control, adjustment of mA and/or KV based on patient s ize, or use of iterative reconstructive technique. FINDINGS: Parenchyma: No intraparenchymal hemorrhage. No evidence of mass, midline shift, or CT findings of acu te infarction. Haider-white differentiation is distinct. Extraaxial Spaces: Normal for age. No subdural or epidural collections identified. Ventricles: The ventricles and cortical sulci are enlarged, consistent with age-related tissue loss. Sinuses: Imaged paranasal sinuses status post bilateral lens replacement surgery., orbits otherwise, and mastoids show no significant abnormality. Bones: No evidence of fracture or calvarial defect. Other: Diffuse chronic microangiopathic white matter changes are evident. IMPRESSION: Generalized age-related cortical atrophic changes without evidence of acute intracranial abnormality. [facility] Referring Provider Line: [phone] SITE ID: [id number]
[2017-02-04 22:12] LABS: BASOPHILS % (AUTO) 0.4 %; EOSINOPHILS % (AUTO) 0.5 %; HCT - HEMATOCRIT 38.6 % (37.0-47.0); HGB - HEMOGLOBIN 12.9 g/dL (12.0-16.0); LYMPHOCYTES # (AUTO) 1.9 10^3/uL (1.5-3.5); LYMPHOCYTES % (AUTO) 22.2 %; MEAN CORPUSCULAR HEMOGLOBIN 31.8 pg (27.0-31.0); MEAN CORPUSCULAR HGB CONC 33.4 g/dL (32.0-36.0); MEAN CORPUSCULAR VOLUME 95.2 fL (81.0-99.0); MONOCYTES % (AUTO) 12.4 %; NEUTROPHILS # (AUTO) 5.4 10^3/uL (1.5-6.6); NEUTROPHILS % (AUTO) 64.5 %; RED BLOOD COUNT 4.06 10^6/uL (4.20-5.40); RED CELL DISTRIBUTION WIDTH 18.6 % (12.0-15.0); UNCORRECTED WHITE BLOOD COUNT 8.4 x10^3/uL; WHITE BLOOD COUNT 8.4 x10^3/uL (4.8-10.8)
--- NOTE | 2017-02-04 22:14 | XRAY Preliminary Report ---
Exam: XR Hip w/Pelvis 2-3V LT IMPRESSION: Displaced left femoral neck fracture. [facility] SITE ID: [id number]
--- NOTE | 2017-02-04 22:16 | CT Preliminary Report ---
Exam: CT Cervical Spine W/O IMPRESSION: 1. No evidence of acute fracture or malalignment. No prevertebral soft tissue swelling. 2. Moderate multilevel degenerative spondylosis, as detailed above. 3. Thyroid gland is enlarged with a low prominent calcified heterogeneous, primarily hypodense lesion measuring 3.7 x 3.1 cm arising from the inferior aspect of the left lobe. As CT is nonspecific for b enign versus malignant etiology, recommend further follow-up with thyroid ultrasound unless already d one, as clinically indicated. This may be done on a nonemergent basis. [facility] SITE ID: [id number]
--- NOTE | 2017-02-04 22:17 | XRAY Report ---
EXAM: LEFT HIP AND PELVIS RADIOGRAPHY EXAM DATE: 02/04/2017 09:46 PM. HISTORY: Fall. Left hip pain. COMPARISONS: None. TECHNIQUE: 1 view of the pelvis and 1 view of the hip. FINDINGS: Bones: Displaced left femoral neck fracture. No other fractures identified. Joints: The bilateral hip, pubis symphysis, and sacroiliac joints are preserved. Soft Tissues: Advanced vascular calcification noted. IMPRESSION: Displaced left femoral neck fracture. [facility] Referring Provider Line: [phone] SITE ID: [id number]
--- NOTE | 2017-02-04 22:19 | CT Report ---
EXAM: CT CERVICAL SPINE WITHOUT CONTRAST DATE: 02/04/2017 09:53 PM HISTORY: Fall, neck pain. COMPARISONS: CT head obtained concurrently TECHNIQUE: Thin-section axial images were acquired of the cervical spine without contrast. Post-proce ssing: Coronal and sagittal reformats. Other: None. In accordance with CT protocol optimization, one or more of the following dose reduction techniques w ere utilized for this exam: automated exposure control, adjustment of mA and/or KV based on patient s ize, or use of iterative reconstructive technique. FINDINGS: Alignment: Reversal of the normal cervical lordosis. Grade 1 anterolisthesis C2 on C3 measuring 3 mm. Grade 1 anterolisthesis C3 on C4 measuring 3 mm. Grade 1 retrolisthesis C4 on C5 measuring 4 mm. Bones: No fracture or bone lesion. Interspace Levels/Facets: C2-C3: Severe bilateral facet arthropathy. No significant central canal narrowing. No neuroforaminal narrowing. C3-C4: Extensive disk height loss. Moderate disk osteophyte complex. Mild bilateral facet arthropathy . Mild central canal narrowing. Mild bilateral neuroforaminal narrowing. C4-C5: Extensive disk height loss. Moderate disk osteophyte complex. No significant facet arthropathy . Mild central canal narrowing. Mild bilateral neuroforaminal narrowing. C5-C6: Extensive disk height loss. Small posterior disk osteophyte complex. Moderate bilateral uncove rtebral spurring. Mild central canal narrowing. Mild bilateral neuroforaminal narrowing. C6-C7: Moderate disk height loss and desiccation. Moderate bilateral uncovertebral spurring. No signi ficant central canal narrowing. Mild bilateral neuroforaminal narrowing. C7-T1: No significant central canal neuroforaminal narrowing. Musculature: Normal. No fatty atrophy. Other: Thyroid gland is enlarged with a low prominent calcified heterogeneous, primarily hypodense le arnol measuring 3.7 x 3.1 cm arising from the inferior aspect of the left lobe. The paravertebral and prevertebral soft tissues are otherwise normal. Visualized lung apices demonstrate mild centrilobular emphysema and mild biapical pleural-parenchymal scarring. IMPRESSION: 1. No evidence of acute fracture or malalignment. No prevertebral soft tissue swelling. 2. Moderate multilevel degenerative spondylosis, as detailed above. 3. Thyroid gland is enlarged with a low prominent calcified heterogeneous, primarily hypodense lesion measuring 3.7 x 3.1 cm arising from the inferior aspect of the left lobe. As CT is nonspecific for b enign versus malignant etiology, recommend further follow-up with thyroid ultrasound unless already d one, as clinically indicated. This may be done on a nonemergent basis. [facility] Referring Provider Line: [phone] SITE ID: [id number]
[2017-02-04 22:20] LABS: ALBUMIN/GLOBULIN RATIO 1.3 (1.0-2.2); BILIRUBIN,TOTAL 0.6 mg/dL (0.2-1.0); CALCIUM 8.6 mg/dL (8.5-10.3); CREATININE 1.2 mg/dL (0.4-1.0); POTASSIUM 4.3 mmol/L (3.5-5.0); TOTAL PROTEIN 7.2 g/dL (6.7-8.2)
[2017-02-04] MEDS ORDERED: SODIUM CHLORIDE FLUSH 0.9% 10 ML SYRINGE IVP ONE ×2 (22:39→23:22)
--- NOTE | 2017-02-04 22:55 | XRAY Preliminary Report ---
Exam: XR Chest 1 View IMPRESSION: No acute disease. [facility] SITE ID: [id number]
--- NOTE | 2017-02-04 22:57 | XRAY Report ---
EXAM: CHEST RADIOGRAPHY EXAM DATE: 02/04/2017 10:46 PM. CLINICAL HISTORY: Preop hip fx. COMPARISON: 12/11/2016. TECHNIQUE: 1 view. FINDINGS: Lungs/Pleura: Hyperexpanded, but clear. No effusion or pneumothorax. Mediastinum: Mild cardiomegaly, probably decreased. Upper lobe vessels not distended. Other: Osteopenia, degenerative changes, calcific periarthritis of right shoulder. IMPRESSION: No acute disease. [facility] Referring Provider Line: [phone] SITE ID: [id number]
[2017-02-04] MEDS ORDERED: PROCHLORPERAZINE 10 MG/2 ML VIAL IVP PRN (23:19)
[2017-02-04] MEDS ORDERED: ONDANSETRON 4 MG/2 ML VIAL IVP PRN (23:19)
[2017-02-04] MEDS ORDERED: ACETAMINOPHEN 325 MG TABLET PO PRN (23:19)
[2017-02-04] MEDS ORDERED: SODIUM CHLORIDE FLUSH 0.9% 10 ML SYRINGE IVP PRN (23:19)
[2017-02-04] MEDS ORDERED: ZOLPIDEM 5 MG TABLET PO PRN (23:19)
[2017-02-04] MEDS ORDERED: ALBUTEROL NEB 2.5 MG/3 ML INH PRN (23:19)
[2017-02-05] MEDS: HYDROcod/ACETAM 10 MG/325 MG TABLET PO PRN (00:24)
[2017-02-05] MEDS: SODIUM CHLORIDE 0.9% 1,000 ML IV SCH ×2 (00:25→20:17)
--- NOTE | 2017-02-05 01:24 | HISTORY & PHYSICAL EXAMINATION ---
Chief Complaint - Chief Complaint Chief Complaint: left hip pain History of Present Illness - Admitted From Admitted From:: emergency department - History Obtained From Records Reviewed: yes History obtained from: patient Exam Limitations: none - History of Present Illness HPI Comment/Other: Patient is a very pleasant 86-year-old female with a past medical history significant for atrial fibrillation on Xarelto, hypertension, peripheral vascular disease, coronary artery disease, small bowel obstruction in 1999 and a status post repair, GERD, hyperlipidemia and macular degeneration with blindness who presented to the emergency department with a chief complaint of left hip pain. The patient states that she was in her normal state of health when this evening she wore a pair of slippers that her grandson had given to her. She states that the slippers were too big for her but she wore them because she did not want to hurt her grandson's feelings. She states that while she was walking in the she tripped and fell backwards landing on her left hip. She states that she did hit her head but did not lose consciousness. She states her grandson lives nearby and was able to get her up and then into a chair. She states initially with a shock of the fall she did not notice that she was in pain however when she tried to move at all in the chair she noticed that she was having excruciating pain in her left hip and could not move her left leg. At this point she had a discussion with her grandson and finally decided that she needed to come into the hospital. The patient otherwise denies any headaches, runny nose, sore throat, nasal congestion, fevers or chills, cough, shortness of air, chest pain, palpitations , abdominal pain, nausea, vomiting, diarrhea, constipation, muscle aches, recent unintentional weight loss, changes in her appetite or focal neurologic deficits. On presentation to the emergency department the patient was afebrile and her all her vital signs are within normal limits. The patient was noted to be in some mild distress secondary to pain in her left hip. The patient's left leg was noted to be externally rotated and shortened. The patient underwent a CT of her head and neck which did not show any acute bleeds or changes. An x-ray of the patient's left hip revealed a displaced left femoral neck fracture. The patient stated that she took her last dose of Xarelto this evening with her dinner. The emergency room physician contacted Dr. Melissa the orthopedic surgeon refrigeration service technician and he asked that the hospitalist team admit the patient and consult orthopedics for repair of the left hip. Review of Systems - Other Findings Other Findings: A comprehensive review of systems was performed the pertinent positives and negatives are stated above in the HPI and the remainder of the review of systems is negative. History - Past Medical History Cardiovascular: reports: Hypertension, Coronary artery disease, Peripheral Vascular Disease, Atrial fibrillation, Other Respiratory: reports: None Neuro: reports: None Endocrine/Autoimmune: reports: None GI: reports: GERD, Other : reports: Other HEENT: reports: Glaucoma Psych: reports: None Musculoskeletal: reports: None Derm: reports: None MRSA Hx?: No Other Past Medical History: 1. Hypertension. 2. Atrial fibrillation on Xarelto. 3. peripheral vascular disease right iliac thrombosis in 2012. 4. Coronary artery disease. 5. History of small bowel obstruction in 2007 status post surgical repair. 6. GERD. 7. Glaucoma. 8. Hyperlipidemia. 9. Macular degeneration. 10. 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 - Family & Social History Family History: Mother: (mom of liver cirrhosis from hep B), Father: , CAD, COPD/Emphysema Living arrangement: At home Living Situation: With family (grandsons) Social History Notes: The patient lives in [place] [facility]. She lives with her grandsons. Her in 2001 and she is . Her kids live in the [facility] area and come to visit quite often. Patient occasionally drinks alcohol, she does not use any illicit drugs. She smoked for 15 years a pack a day but quit in 1985. - POLST Patient has POLST: No POLST Status: DNR Meds/Allgy - Home Medications Home Medications: Ambulatory Orders Medication Instructions Recorded Confirmed Losartan [Cozaar] 25 mg PO DAILY 07/16/13 02/04/17 Pravastatin Sodium [Pravachol] 40 mg PO DAILY 07/16/13 02/04/17 Rivaroxaban [Xarelto] 15 mg PO DAILY 07/19/13 02/04/17 Diltiazem HCl [Taztia Xt] 360 mg PO DAILY 12/11/16 02/04/17 Metoprolol Succinate [Toprol Xl] 25 mg PO DAILY 12/11/16 02/04/17 Omeprazole 20 mg PO DAILY 12/11/16 02/04/17 Albuterol Sulfate [Proair Hfa 2 puffs INH Q6H PRN 12/12/16 12/12/16 Inhaler] Famotidine [Pepcid] 20 mg PO BID 12/12/16 02/04/17 Furosemide 20 mg PO DAILY 12/12/16 02/04/17 Latanoprost 0.005% Ophth Drops 1 drops EACHEYE QPM 12/12/16 02/04/17 [Xalatan Ophth Drops] Timolol 0.5% Ophth Drops [Timoptic 1 drops EACHEYE BID 12/12/16 02/04/17 0.5% Ophth Drops] Nystatin Cream [Mycostatin Cream] 1 applic TOP BID tube 12/13/16 02/04/17 Potassium Chloride [K-Dur] 20 meq PO DAILYWM tablet 12/13/16 02/04/17 - Allergies Allergies/Adverse Reactions: Allergies Allergy/AdvReac Type Severity Reaction Status Date / Time streptomycin Allergy Mild Unknown Verified 02/04/17 21:15 ciprofloxacin [From Cipro] Allergy Unknown Unknown Verified 02/04/17 21:15 Penicillins Allergy Unknown Unknown Verified 02/04/17 21:15 Sulfa (Sulfonamide Allergy Unknown Unknown Verified 02/04/17 21:15 Antibiotics) tetanus toxoid, adsorbed Allergy Unknown Verified 02/04/17 21:15 Exam - Vital Signs Reviewed Vital Signs: Yes Vital Signs: Vital Signs x48h Temp Pulse Pulse Resp BP BP Pulse Ox 02/05/17 00:25 36.3 C L 72 16 124/65 100 02/04/17 23:58 74 16 126/65 100 - Physical Exam General Appearance: positive: Alert, Mild distress (Left leg pain) Eyes Bilateral: positive: Normal inspection, PERRL, EOMI, No lid inflammation, Conjunctivae nml, No scleral icterus ENT: positive: ENT inspection nml, Pharynx nml, No signs of dehydration. negative: Purulent nasal drainage, Pharyngeal erythema, Oral lesions Neck: positive: Nml inspection, Thyroid nml, No JVD, Trachea midline. negative : Thyromegaly, Lymphadenopathy (R), Lymphadenopathy (L), Carotid bruit, Tracheal deviation Respiratory: positive: Chest non-tender, No respiratory distress, Breath sounds nml. negative: Wheezes, Rales, Rhonchi Cardiovascular: positive: No murmur, No gallop, Irregularly irregular Peripheral Pulses: positive: 2+ Abdomen: positive: Non-tender, No organomegaly, Nml bowel sounds, No distention. negative: Guarding, Rebound, Hepatomegaly, Splenomegaly Back: positive: Nml inspection. negative: CVA tenderness (R), CVA tenderness (L ) Skin: positive: Color nml, No rash, Warm, Other (Bruising on arms). negative: Cyanosis, Pallor Extremities: positive: No pedal edema, Other (Left leg shortened and externally rotated with limited ROM secondary to pain) Neurologic/Psychiatric: positive: Oriented x3, CN's nml (2-12), Motor nml, Sensation nml, Mood/affect nml Conclusion/Plan - Problem List (1) Left displaced femoral neck fracture Conclusion/Plan: Secondary to mechanical fall without LOC, CT head and neck negative Patient presented with left hip pain, inability to bear weight on left hip, externally rotated and shortened left hip with Xray showed displaced left femoral neck fracture Patient on xarelto for a fib last dose on evening of 02/04/2017 RCRI score of 1 risk of perioperative cardiac event of 0.9% Plan: Ortho consult NPO after midnight Pain control with oxycodone and dilaudid IV PT consult Foot pumps for DVT prophylaxis till after surgery Would recommend doing surgery 24 hours after last dose of xarelto (2) Atrial fibrillation Conclusion/Plan: Rate controlled On xarelto Plan: Hold xarelto for the surgery Recommend waiting 24 hours after last dose of xarelto to do the surgery to minimize risk of bleeding Continue metoprolol and diltiazem Qualifiers: Atrial fibrillation type: chronic Qualified Code(s): I48.2 - Chronic atrial fibrillation (3) Enlarged thyroid gland Conclusion/Plan: Seen on CT scan incidentally Thyroid ultrasound as outpatient Check TSH (4) Hypertension Conclusion/Plan: BP well controlled Continue home meds Pain control Monitor BP Qualifiers: Hypertension type: essential hypertension Qualified Code(s): I10 - Essential (primary) hypertension - Lab Results Lab results reviewed: Yes Fish Bones: 08/22/17 21:58 02/04/17 21:58 Other Lab Results: Laboratory Results WBC 8.4 x10^3/uL (4.8-10.8) 02/04/17 21:58 RBC 4.06 10^6/uL (4.20-5.40) L 02/04/17 21:58 Hgb 12.9 g/dL (12.0-16.0) 02/04/17 21:58 Hct 38.6 % (37.0-47.0) 02/04/17 21:58 MCV 95.2 fL (81.0-99.0) 02/04/17 21:58 MCH 31.8 pg (27.0-31.0) H 02/04/17 21:58 MCHC 33.4 g/dL (32.0-36.0) 02/04/17 21:58 RDW 18.6 % (12.0-15.0) H 02/04/17 21:58 Plt Count 167 10^3/uL (130-450) 02/04/17 21:58 MPV 9.0 fL (7.9-10.8) 02/04/17 21:58 Neut # 5.4 10^3/uL (1.5-6.6) 02/04/17 21:58 Lymph # 1.9 10^3/uL (1.5-3.5) 02/04/17 21:58 Miner # 1.0 10^3/uL (0.0-1.0) 02/04/17 21:58 Eos # 0.0 10^3/uL (0.0-0.7) 02/04/17 21:58 Baso # 0.0 10^3/uL (0.0-0.1) 02/04/17 21:58 Absolute Nucleated RBC 0.00 x10^3/uL 02/04/17 21:58 Nucleated RBCs 0.0 /100WBC 02/04/17 21:58 Sodium 137 mmol/L (135-145) 02/04/17 21:58 Potassium 4.3 mmol/L (3.5-5.0) 02/04/17 21:58 Chloride 103 mmol/L (101-111) 02/04/17 21:58 Carbon Dioxide 23 mmol/L (21-32) 02/04/17 21:58 Anion Gap 11.0 (6-13) 02/04/17 21:58 BUN 22 mg/dL (6-20) H 02/04/17 21:58 Creatinine 1.2 mg/dL (0.4-1.0) H 02/04/17 21:58 Estimated GFR (MDRD) 43 (>89) L 02/04/17 21:58 Glucose 104 mg/dL (70-100) H 02/04/17 21:58 Calcium 8.6 mg/dL (8.5-10.3) 02/04/17 21:58 Total Bilirubin 0.6 mg/dL (0.2-1.0) 02/04/17 21:58 AST 20 IU/L (10-42) 02/04/17 21:58 ALT 14 IU/L (10-60) 02/04/17 21:58 Alkaline Phosphatase 81 IU/L (42-121) 02/04/17 21:58 Total Protein 7.2 g/dL (6.7-8.2) 02/04/17 21:58 Albumin 4.1 g/dL (3.2-5.5) 02/04/17 21:58 Globulin 3.1 g/dL (2.1-4.2) 02/04/17 21:58 Albumin/Globulin Ratio 1.3 (1.0-2.2) 02/04/17 21:58 Lipase 48 U/L (22-51) 02/04/17 21:58 Blood Type A POSITIVE 02/04/17 22:50 Antibody Screen NEGATIVE 02/04/17 22:50 - Diagnostic Imaging Results Diagnostic Imaging Results: positive: Final report reviewed Diagnostic Imaging Results Comments: Chest x-ray impression: No acute disease CT head impression: Generalized age-related cortical atrophic changes without evidence of acute intracranial abnormality. CT cervical spine impression: 1. No evidence of acute fracture or malalignment. No prevertebral soft tissue swelling. 2. Moderate multilevel degenerative spondylosis. 3. Thyroid gland is enlarged with a low prominent calcified heterogeneous, primarily hypodense lesion measuring 3.7 x 3.1 cm arising from the inferior aspect of the left lobe. CT is nonspecific for benign versus malignant etiology, recommended further followup with thyroid ultrasound unless already done, as clinically indicated. This may be done on a nonemergent basis. X-ray left hip impression: Displaced left femoral neck fracture. Echocardiogram 12/12/2016 1. The left ventricular cavity size is decreased. Mild concentric left ventricular hypertrophy. Left ventricular systolic function is hyperdynamic with an ejection fraction of 70-75% 2. The right ventricle is normal in size and function. 3. No hemodynamically significant valvular disease. 4. Pleural effusion noted. - EKG Results EKG Interpreted Independently: Yes EKG Findings: Atrial fibrillation with no ST elevations or ischemic changes Issues/Core Measures - Anticipated LOS Anticipated Stay Length: 2 or more midnights - DVT/VTE - Prophylaxis VTE/DVT Device ordered at admit?: Yes
[2017-02-05] MEDS: HYDROmorphone 1 MG/ML CARPUJECT IVP PRN ×3 (01:50→08:46)
[2017-02-05 05:17] LABS: BASOPHILS % (AUTO) 0.4 %; EOSINOPHILS % (AUTO) 0.4 %; HCT - HEMATOCRIT 37.6 % (37.0-47.0); HGB - HEMOGLOBIN 12.3 g/dL (12.0-16.0); LYMPHOCYTES # (AUTO) 2.5 10^3/uL (1.5-3.5); LYMPHOCYTES % (AUTO) 24.6 %; MEAN CORPUSCULAR HEMOGLOBIN 31.4 pg (27.0-31.0); MEAN CORPUSCULAR HGB CONC 32.6 g/dL (32.0-36.0); MEAN CORPUSCULAR VOLUME 96.4 fL (81.0-99.0); MEAN PLATELET VOLUME 9.2 fL (7.9-10.8); MONOCYTES # (AUTO) 1.5 10^3/uL (0.0-1.0); MONOCYTES % (AUTO) 15.1 %; NEUTROPHILS % (AUTO) 59.5 %; RED CELL DISTRIBUTION WIDTH 18.4 % (12.0-15.0); UNCORRECTED WHITE BLOOD COUNT 10.2 x10^3/uL; WHITE BLOOD COUNT 10.2 x10^3/uL (4.8-10.8)
[2017-02-05 05:23] LABS: INR 2.2 (0.8-1.2); PT - PROTHROMBIN TIME 24.4 secs (9.9-12.6)
[2017-02-05 05:33] LABS: ALBUMIN/GLOBULIN RATIO 1.5 (1.0-2.2); BILIRUBIN,TOTAL 0.9 mg/dL (0.2-1.0); CALCIUM 8.3 mg/dL (8.5-10.3); CREATININE 0.9 mg/dL (0.4-1.0); MAGNESIUM 1.1 mg/dL (1.7-2.8); PHOSPHORUS 4.5 mg/dL (2.5-4.6); POTASSIUM 4.3 mmol/L (3.5-5.0); TOTAL PROTEIN 6.5 g/dL (6.7-8.2)
[2017-02-05] MEDS: PANTOPRAZOLE 40 MG TABLET PO SCH (06:08)
[2017-02-05] MEDS: SODIUM CHLORIDE FLUSH 0.9% 10 ML SYRINGE IVP SCH ×3 (06:08→20:20)
--- NOTE | 2017-02-05 08:13 | PROVIDER PROGRESS NOTE ---
Assessment/Plan - Problem List (1) Left displaced femoral neck fracture Assessment/Plan: acute. patient going to the OR for fracture with Dr Melissa at noon today (2) Anticoagulant long-term use Assessment/Plan: chronic. patient is on xarelto but has been held for surgery. Son agreed for surgery today with Dr Melissa. type and screen done and [facility] on hold with pharmacy if needed for reversal of Xarelto if patient bleeds. (3) Hypomagnesemia Assessment/Plan: acute. replace magnesium and recheck lab values with daily lab draw. will check thyroid panel. - Current Meds Current Meds: Current Medications Generic Name Dose Route Start Last Admin Trade Name Freq PRN Reason Stop Dose Admin Acetaminophen/Hydrocodone Bitart 1 tab 02/04/17 23:19 02/05/17 00:24 [place] 10 Mg/325 Mg PO 1 tab Q4HR PRN Administration Pain 8 to 10 Hydromorphone HCl 1 mg 02/04/17 23:19 02/05/17 06:08 Dilaudid Inj IVP 1 mg Q2HR PRN Administration Pain 8 to 10 Sodium Chloride 1,000 mls @ 100 mls/hr 02/04/17 23:45 02/05/17 00:25 Normal Saline 0.9% IV 100 mls/hr .Q10H CARMELO Administration Pantoprazole Sodium 40 mg 02/05/17 07:00 02/05/17 06:08 Protonix PO 40 mg QDAC CARMELO Administration Sodium Chloride 10 ml 02/04/17 23:19 02/05/17 00:26 Normal Saline Flush 0.9% IVP 10 ml PRN PRN Administration NEEDED PER PROVIDER ORDERS Sodium Chloride 10 ml 02/05/17 06:00 02/05/17 06:08 Normal Saline Flush 0.9% IVP 10 ml Q8HR CARMELO Administration - Lab Result Lab results reviewed: Yes Fish Bone Diagrams: 02/05/17 04:51 02/05/17 04:51 Other Lab Results: Abnormal Lab Results 02/04/17 02/04/17 02/05/17 21:58 21:58 04:51 RBC 4.06 10^6/uL L 10^6/uL 3.90 10^6/uL L 10^6/uL (4.20-5.40) (4.20-5.40) MCH 31.8 pg H pg 31.4 pg H pg (27.0-31.0) (27.0-31.0) RDW 18.6 % H % 18.4 % H % (12.0-15.0) (12.0-15.0) Frio # 1.5 10^3/uL H 10^3/uL (0.0-1.0) PT INR BUN 22 mg/dL H mg/dL (6-20) Creatinine 1.2 mg/dL H mg/dL (0.4-1.0) Estimated GFR (MDRD) 43 L (>89) Glucose 104 mg/dL H mg/dL (70-100) Calcium Magnesium Total Protein 02/05/17 02/05/17 04:51 04:51 RBC MCH RDW Frio # PT 24.4 secs H secs (9.9-12.6) INR 2.2 H (0.8-1.2) BUN 21 mg/dL H mg/dL (6-20) Creatinine Estimated GFR (MDRD) 60 L (>89) Glucose 105 mg/dL H mg/dL (70-100) Calcium 8.3 mg/dL L mg/dL (8.5-10.3) Magnesium 1.1 mg/dL L mg/dL (1.7-2.8) Total Protein 6.5 g/dL L g/dL (6.7-8.2) - EKG Results EKG Interpreted Independently: Yes - Additional Planning My Orders: My Active Orders 02/05/17 08:07 TSH [THYROID STIMULATING HORMONE] [IAI] Stat 02/05/17 09:00 Magnesium Sulfate 2 Gram [Magnesium Sulfate] 50 ml IV Q1H 02/06/17 05:00 MAGNESIUM [CHEM] DAILYLAB Subjective - Subjective Patient Reports: No Complaints, Other (patient sleeping and no complaints) Nursing Reports: Pain, Sedated Objective Vital Signs: Vital Signs - 24 hr 02/04/17 02/05/17 23:58 00:25 Temperature 36.3 C L Heart Rate 74 Heart Rate [ 72 Brachial] Respiratory 16 16 Rate Blood Pressure 126/65 Blood Pressure 124/65 [Left Brachial artery] O2 Saturation 100 100 Oxygen O2 Source Nasal cannula Oxygen Flow Rate 3 I&O (Last 24 Hrs): Intake and Output Totals x24h 02/03/17 02/04/1717 23:59 23:59 23:59 Intake Total 565 Balance 565 General: Alert, No acute distress (patient was sleeping and able to be aroused but lethargic) Neck: Supple, No JVD, No thyromegaly Cardiovascular: Regular rate, Normal S1, Normal S2 Respiratory: Chest non-tender, No respiratory distress, Breath sounds nml Abdomen: Soft, No tenderness Extremities: No cyanosis, No edema, No tenderness/swelling Skin: No rashes, No breakdown, No significant lesion - Results Results: Laboratory Results WBC 10.2 x10^3/uL (4.8-10.8) 02/05/17 04:51 RBC 3.90 10^6/uL (4.20-5.40) L 02/05/17 04:51 Hgb 12.3 g/dL (12.0-16.0) 02/05/17 04:51 Hct 37.6 % (37.0-47.0) 02/05/17 04:51 MCV 96.4 fL (81.0-99.0) 02/05/17 04:51 MCH 31.4 pg (27.0-31.0) H 02/05/17 04:51 MCHC 32.6 g/dL (32.0-36.0) 02/05/17 04:51 RDW 18.4 % (12.0-15.0) H 02/05/17 04:51 Plt Count 197 10^3/uL (130-450) 02/05/17 04:51 MPV 9.2 fL (7.9-10.8) 02/05/17 04:51 Neut # 6.0 10^3/uL (1.5-6.6) 02/05/17 04:51 Lymph # 2.5 10^3/uL (1.5-3.5) 02/05/17 04:51 Frio # 1.5 10^3/uL (0.0-1.0) H 02/05/17 04:51 Eos # 0.0 10^3/uL (0.0-0.7) 02/05/17 04:51 Baso # 0.0 10^3/uL (0.0-0.1) 02/05/17 04:51 Absolute Nucleated RBC 0.00 x10^3/uL 02/05/17 04:51 Nucleated RBCs 0.0 /100WBC 02/05/17 04:51 PT 24.4 secs (9.9-12.6) H 02/05/17 04:51 INR 2.2 (0.8-1.2) H 02/05/17 04:51 Sodium 137 mmol/L (135-145) 02/05/17 04:51 Potassium 4.3 mmol/L (3.5-5.0) 02/05/17 04:51 Chloride 106 mmol/L (101-111) 02/05/17 04:51 Carbon Dioxide 24 mmol/L (21-32) 02/05/17 04:51 Anion Gap 7.0 (6-13) 02/05/17 04:51 BUN 21 mg/dL (6-20) H 02/05/17 04:51 Creatinine 0.9 mg/dL (0.4-1.0) 02/05/17 04:51 Estimated GFR (MDRD) 60 (>89) L 02/05/17 04:51 Glucose 105 mg/dL (70-100) H 02/05/17 04:51 Calcium 8.3 mg/dL (8.5-10.3) L 02/05/17 04:51 Phosphorus 4.5 mg/dL (2.5-4.6) 02/05/17 04:51 Magnesium 1.1 mg/dL (1.7-2.8) L 02/05/17 04:51 Total Bilirubin 0.9 mg/dL (0.2-1.0) 02/05/17 04:51 AST 18 IU/L (10-42) 02/05/17 04:51 ALT 13 IU/L (10-60) 02/05/17 04:51 Alkaline Phosphatase 82 IU/L (42-121) 02/05/17 04:51 Total Protein 6.5 g/dL (6.7-8.2) L 02/05/17 04:51 Albumin 3.9 g/dL (3.2-5.5) 02/05/17 04:51 Globulin 2.6 g/dL (2.1-4.2) 02/05/17 04:51 Albumin/Globulin Ratio 1.5 (1.0-2.2) 02/05/17 04:51 Lipase 48 U/L (22-51) 02/04/17 21:58 TSH 1.58 uIU/mL (0.34-5.60) 02/05/17 04:51 Blood Type A POSITIVE 02/04/17 22:50 Antibody Screen NEGATIVE 02/04/17 22:50 - Procedures Procedures: Procedures ENDOSC POLYPECTOMY OF LG INTEST (07/19/13)
[2017-02-05] MEDS: MAGNESIUM SULFATE 2 GRAM 50 ML IV SCH ×2 (08:20→09:46)
[2017-02-05] MEDS ORDERED: DILTIAZEM HCL 360 MG PO SCH (09:00)
[2017-02-05] MEDS: diltiaZEM CD 180 MG CAPSULE PO SCH (09:17)
[2017-02-05] MEDS: LOSARTAN 50 MG TABLET PO SCH (09:17)
[2017-02-05] MEDS: METOPROLOL SUCCINATE 25 MG TABLET PO SCH (09:17)
[2017-02-05] MEDS: ATORVASTATIN 10 MG TABLET PO SCH (10:08)
[2017-02-05] MEDS: NYSTATIN CREAM 15 GM TUBE TOP SCH ×2 (10:08→22:57)
[2017-02-05] MEDS: POTASSIUM CHLORIDE 20 MEQ TABLET PO SCH (10:08)
[2017-02-05] MEDS: POLYETHYLENE GLYCOL 3350 17 GM PACKET PO SCH (10:08)
[2017-02-05] MEDS: TIMOLOL 0.5% OPHTH DROPS EACHEYE SCH ×2 (10:09→22:57)
[2017-02-05] MEDS ORDERED: MORPHINE PF 5 MG/10 ML AMP SUBQ ONE ×2 (11:29→12:52)
[2017-02-05] MEDS ORDERED: KETOROLAC 30 MG/ML VIAL IM ONE ×2 (11:29→12:51)
[2017-02-05] MEDS ORDERED: BUPIVACAINE 0.5%-EPI 1:200000 PF 30 ML VIAL SUBQ ONE ×3 (11:29→12:51)
[2017-02-05] MEDS ORDERED: ROPIVACAINE 0.2% PF 20 ML AMPULE SUBQ ONE ×2 (11:30→12:52)
[2017-02-05] MEDS ORDERED: EPINEPHrine 1 MG/ML AMP SUBQ ONE ×2 (11:30→12:52)
[2017-02-05] MEDS ORDERED: LACTATED RINGERS 1,000 ML IV ONE ×4 (11:31→15:29)
[2017-02-05] MEDS ORDERED: PROPOFOL 200 MG/20 ML VIAL IVP ONE (12:00)
[2017-02-05] MEDS ORDERED: ACETAMINOPHEN 1,000 MG/100 ML VIAL IV ONE (12:00)
[2017-02-05] MEDS ORDERED: ceFAZolin 1 GM VIAL IV ONE (12:00)
[2017-02-05] MEDS ORDERED: MORPHINE PF 5 MG/10 ML AMP EP ONE (12:00)
[2017-02-05] MEDS ORDERED: LIDOCAINE-MPF 2% 5 ML VIAL IM ONE (12:00)
[2017-02-05] MEDS ORDERED: TRANEXAMIC ACID 1,000 MG/10 ML VIAL IV ONE (12:00)
[2017-02-05] MEDS ORDERED: ONDANSETRON 4 MG/2 ML VIAL IVP ONE (12:00)
[2017-02-05] MEDS ORDERED: fentaNYL 100 MCG/2 ML VIAL IVP ONE (12:00)
[2017-02-05] MEDS ORDERED: ROCURONIUM 50 MG/5 ML VIAL IVP ONE (12:00)
[2017-02-05] MEDS ORDERED: DEXAMETHASONE 4 MG/ML VIAL IVP ONE (12:00)
--- NOTE | 2017-02-05 15:06 | OPERATIVE REPORT ---
Operative Report - General Admit Date: 02/04/17 Procedure Date: 02/05/17 Planned Procedure: Left Hip Hemiarthroplasty Pre-Op Diagnosis: Left Garden IV Femoral Neck Fracture Procedure Performed: Left Hip Bipolar Hemiarthroplasty Post Op Diagnosis: Same - Procedure Note Primary Surgeon: Elliot Melissa MD Anesthesia Provider: Marybel Marie CRNA Anesthesia Technique: General ET tube, Local Pathology: Same. IV Fluids (mL): 2,000 Estimated Blood Loss (mL): 200 Urine Output (mL): 200 Complications: None. - Other Other Information/Narrative: Condition: Stable. Disposition: PACU >> [facility]. Implants: Horace/Biomet Echo Cemented stem, Size 7. Bipolar Head with 44 mm OD Palacos Cement
--- NOTE | 2017-02-05 16:59 | XRAY Report ---
LEFT HIP AND PELVIS: 02/05/2017 CLINICAL INDICATION: Postop. Frontal view of the hips and pelvis, and cross-table lateral view of the left hip demonstrate a left hip replacement in place. There is no evidence of fracture or immediate hardware complication. Subc utaneous gas is noted in the soft tissues. IMPRESSION: EXPECTED POSTOPERATIVE APPEARANCE OF LEFT HIP REPLACEMENT. JOB #: [id number] EXT JOB #:[id number]
[2017-02-05] MEDS ORDERED: MAGNESIUM SULFATE 2 GRAM 50 ML IV SCH (19:00)
[2017-02-05] MEDS ORDERED: SODIUM CHLORIDE 0.9% 500 ML IV ONE (22:44)
[2017-02-05] MEDS: RIVAROXABAN 10 MG TABLET PO SCH (22:56)
[2017-02-05] MEDS: LATANOPROST 0.005% OPHTH DROPS EACHEYE SCH (22:56)
[2017-02-06] MEDS: SODIUM CHLORIDE 0.9% 1,000 ML IV SCH ×2 (02:55→14:33)
[2017-02-06 05:47] LABS: ALBUMIN/GLOBULIN RATIO 1.3 (1.0-2.2); BILIRUBIN,TOTAL 0.9 mg/dL (0.2-1.0); CALCIUM 8.4 mg/dL (8.5-10.3); CREATININE 0.8 mg/dL (0.4-1.0); INR 1.5 (0.8-1.2); MAGNESIUM 2.6 mg/dL (1.7-2.8); POTASSIUM 4.7 mmol/L (3.5-5.0); PT - PROTHROMBIN TIME 17.5 secs (9.9-12.6); TOTAL PROTEIN 6.1 g/dL (6.7-8.2)
[2017-02-06 05:54] LABS: HCT - HEMATOCRIT 35.4 % (37.0-47.0); HGB - HEMOGLOBIN 11.5 g/dL (12.0-16.0); LYMPHOCYTES # (AUTO) 0.5 10^3/uL (1.5-3.5); LYMPHOCYTES % (AUTO) 4.4 %; MEAN CORPUSCULAR HEMOGLOBIN 31.9 pg (27.0-31.0); MEAN CORPUSCULAR HGB CONC 32.6 g/dL (32.0-36.0); MEAN CORPUSCULAR VOLUME 97.8 fL (81.0-99.0); MEAN PLATELET VOLUME 9.4 fL (7.9-10.8); MONOCYTES # (AUTO) 1.1 10^3/uL (0.0-1.0); MONOCYTES % (AUTO) 9.6 %; NEUTROPHILS # (AUTO) 9.4 10^3/uL (1.5-6.6); RED BLOOD COUNT 3.62 10^6/uL (4.20-5.40); RED CELL DISTRIBUTION WIDTH 18.3 % (12.0-15.0); UNCORRECTED WHITE BLOOD COUNT 10.9 x10^3/uL; WHITE BLOOD COUNT 10.9 x10^3/uL (4.8-10.8)
[2017-02-06] MEDS: PANTOPRAZOLE 40 MG TABLET PO SCH (06:10)
[2017-02-06] MEDS: SODIUM CHLORIDE FLUSH 0.9% 10 ML SYRINGE IVP SCH ×2 (06:20→14:01)
--- NOTE | 2017-02-06 07:41 | PROVIDER PROGRESS NOTE ---
Assessment/Plan - Problem List (1) Left displaced femoral neck fracture Assessment/Plan: ongoing. patient seen by surgery ortho and surgery done yesterday. she is to be up with PT today. She is stating she has no pain. continue with pain medications as prescribed. continue to monitor CBC with daily lab draws. encourage ambulation when tolerated. will need rehab set up and plan for discharge on Friday (2) Alcohol use disorder Assessment/Plan: acute on chronic. patient is having some delusions probably related to alcohol usage and withdrawal. She has CIWA protocol and ativan ordered. ammonia level ordered. continue to monitor magnesium levels and electrolytes (3) Anticoagulant long-term use Assessment/Plan: stable. patient was put back on Xarelto. continue home dosage. continue to monitor for bleeding and monitor CBC with daily lab draws. (4) Hypomagnesemia Assessment/Plan: improved. continue to monitor with daily lab draws. - Current Meds Current Meds: Current Medications Generic Name Dose Route Start Last Admin Trade Name Freq PRN Reason Stop Dose Admin Acetaminophen/Hydrocodone Bitart 1 tab 02/04/17 23:19 02/05/17 00:24 [place] 10 Mg/325 Mg PO 1 tab Q4HR PRN Administration Pain 8 to 10 Atorvastatin Calcium 10 mg 02/05/17 09:00 02/05/17 10:08 Lipitor PO Not Given DAILY CARMELO Diltiazem HCl 360 mg 02/05/17 09:00 02/05/17 09:17 Cardizem Cd PO 360 mg DAILY CARMELO Administration Hydromorphone HCl 1 mg 02/04/17 23:19 02/05/17 08:46 Dilaudid Inj IVP 1 mg Q2HR PRN Administration Pain 8 to 10 Sodium Chloride 1,000 mls @ 100 mls/hr 02/04/17 23:45 02/06/17 02:55 Normal Saline 0.9% IV 100 mls/hr .Q10H CARMELO Administration Latanoprost 1 drops 02/05/17 21:00 02/05/17 22:56 Xalatan Ophth Drops EACHEYE 1 drops QPM CARMELO Administration Losartan Potassium 25 mg 02/05/17 09:00 02/05/17 09:17 Cozaar PO 25 mg DAILY CARMELO Administration Metoprolol Succinate 25 mg 02/05/17 09:00 02/05/17 09:17 Toprol Xl PO 25 mg DAILY CARMELO Administration Nystatin 1 applic 02/05/17 09:00 02/05/17 22:57 Mycostatin Cream TOP Not Given BID CARMELO Pantoprazole Sodium 40 mg 02/05/17 07:00 02/06/17 06:10 Protonix PO 40 mg QDAC CARMELO Administration Polyethylene Glycol 17 gm 02/05/17 09:00 02/05/17 10:08 Miralax PO Not Given DAILY CARMELO Potassium Chloride 20 meq 02/05/17 08:00 02/05/17 10:08 K-Dur PO Not Given DAILYWM CARMELO Rivaroxaban 10 mg 02/05/17 17:00 02/05/17 22:56 Xarelto PO 10 mg 1700 CARMELO Administration Sodium Chloride 10 ml 02/04/17 23:19 02/05/17 00:26 Normal Saline Flush 0.9% IVP 10 ml PRN PRN Administration NEEDED PER PROVIDER ORDERS Sodium Chloride 10 ml 02/05/17 06:00 02/06/17 06:20 Normal Saline Flush 0.9% IVP Not Given Q8HR CARMELO Timolol Maleate 1 drops 02/05/17 09:00 02/05/17 22:57 Timoptic 0.5% Ophth Drops EACHEYE 1 drops BID CARMELO Administration - Lab Result Lab results reviewed: Yes Fish Bone Diagrams: 02/06/17 04:54 02/06/17 04:54 Other Lab Results: Abnormal Lab Results 02/04/17 02/04/17 02/04/17 21:58 21:58 22:50 WBC RBC 4.06 10^6/uL L 10^6/uL (4.20-5.40) Hgb Hct MCH 31.8 pg H pg (27.0-31.0) RDW 18.6 % H % (12.0-15.0) Neut # Lymph # [place] # PT INR Anion Gap BUN 22 mg/dL H mg/dL (6-20) Creatinine 1.2 mg/dL H mg/dL (0.4-1.0) Estimated GFR (MDRD) 43 L (>89) Glucose 104 mg/dL H mg/dL (70-100) Calcium Magnesium Total Protein Thyroxine (T4) Crossmatch IS Only See Detail 02/05/17 02/05/17 02/05/17 04:51 04:51 04:51 WBC RBC 3.90 10^6/uL L 10^6/uL (4.20-5.40) Hgb Hct MCH 31.4 pg H pg (27.0-31.0) RDW 18.4 % H % (12.0-15.0) Neut # Lymph # [place] # 1.5 10^3/uL H 10^3/uL (0.0-1.0) PT 24.4 secs H secs (9.9-12.6) INR 2.2 H (0.8-1.2) Anion Gap BUN 21 mg/dL H mg/dL (6-20) Creatinine Estimated GFR (MDRD) 60 L (>89) Glucose 105 mg/dL H mg/dL (70-100) Calcium 8.3 mg/dL L mg/dL (8.5-10.3) Magnesium 1.1 mg/dL L mg/dL (1.7-2.8) Total Protein 6.5 g/dL L g/dL (6.7-8.2) Thyroxine (T4) Crossmatch IS Only 02/05/17 02/06/17 02/06/17 04:51 04:54 04:54 WBC 10.9 x10^3/uL H x10^3/uL (4.8-10.8) RBC 3.62 10^6/uL L 10^6/uL (4.20-5.40) Hgb 11.5 g/dL L g/dL (12.0-16.0) Hct 35.4 % L % (37.0-47.0) MCH 31.9 pg H pg (27.0-31.0) RDW 18.3 % H % (12.0-15.0) Neut # 9.4 10^3/uL H 10^3/uL (1.5-6.6) Lymph # 0.5 10^3/uL L 10^3/uL (1.5-3.5) [place] # 1.1 10^3/uL H 10^3/uL (0.0-1.0) PT INR Anion Gap 4.0 L (6-13) BUN Creatinine Estimated GFR (MDRD) 68 L (>89) Glucose 137 mg/dL H mg/dL (70-100) Calcium 8.4 mg/dL L mg/dL (8.5-10.3) Magnesium Total Protein 6.1 g/dL L g/dL (6.7-8.2) Thyroxine (T4) 5.73 ug/dL L ug/dL (6.09-12.23) Crossmatch IS Only 02/06/17 04:54 WBC RBC Hgb Hct MCH RDW Neut # Lymph # [place] # PT 17.5 secs H secs (9.9-12.6) INR 1.5 H (0.8-1.2) Anion Gap BUN Creatinine Estimated GFR (MDRD) Glucose Calcium Magnesium Total Protein Thyroxine (T4) Crossmatch IS Only - EKG Results EKG Interpreted Independently: No - Additional Planning Condition/Complexity: Stable (Patient will need another 48 hours before discharge to [facility] for rehab. she is high risk for worsening co morbid conditions.) My Orders: My Active Orders 02/05/17 10:31 Crossmatch [RBC, LEUKOREDUCED] Stat 02/05/17 18:23 CIWA-Ar Score Assessment [RC] ONCE 02/05/17 18:55 RT [Nebulizer/MDI Tx.] [RC] .Q4PRN 02/06/17 04:54 T3 REVERSE [REFLAB] Stat 02/06/17 09:00 Furosemide [Lasix] 20 mg PO DAILY Consult/Specialty: OT, PT, Surgery Plan Discussed with:: Patient, Family Time Spent: 31-60 minutes Subjective - Subjective Patient Reports: Resting Comfortably, No Complaints Nursing Reports: Confused, Other (patient may be withdrawing and will need to monitor behavior. ativan ordered) Objective Vital Signs: Vital Signs - 24 hr 02/05/17 02/05/17 02/05/17 09:12 14:51 14:55 Temperature 36.3 C L Heart Rate Heart Rate [ 124 H Brachial] Respiratory 18 Rate Blood Pressure 140/67 H [Left Brachial artery] Blood Pressure [Right Brachial artery] O2 Saturation 96 100 93 02/05/17 02/05/17 02/05/17 15:00 15:05 15:10 Temperature Heart Rate Heart Rate [ Brachial] Respiratory Rate Blood Pressure [Left Brachial artery] Blood Pressure [Right Brachial artery] O2 Saturation 92 92 93 02/05/17 02/05/17 02/05/17 15:15 15:20 15:44 Temperature Heart Rate Heart Rate [ Brachial] Respiratory Rate Blood Pressure [Left Brachial artery] Blood Pressure [Right Brachial artery] O2 Saturation 92 93 91 L 02/05/17 02/05/17 02/05/17 16:16 16:46 17:46 Temperature 36.5 C 36.3 C L 36.4 C L Heart Rate Heart Rate [ 112 H 99 60 Brachial] Respiratory 16 16 18 Rate Blood Pressure [Left Brachial artery] Blood Pressure 141/63 H 131/58 H 134/67 H [Right Brachial artery] O2 Saturation 93 93 96 02/05/17 02/05/17 02/05/17 18:46 19:10 20:01 Temperature 36.4 C L 36.4 C L Heart Rate 92 Heart Rate [ 91 79 Brachial] Respiratory 16 18 18 Rate Blood Pressure [Left Brachial artery] Blood Pressure 110/61 136/56 H [Right Brachial artery] O2 Saturation 95 94 02/05/17 02/06/17 02/06/17 22:55 00:03 03:47 Temperature 36.3 C L 36.5 C Heart Rate Heart Rate [ 88 96 85 Brachial] Respiratory 16 16 Rate Blood Pressure [Left Brachial artery] Blood Pressure 128/59 L 103/56 L 121/63 [Right Brachial artery] O2 Saturation 95 96 Oxygen O2 Source Nasal cannula Oxygen Flow Rate 3 I&O (Last 24 Hrs): Intake and Output Totals x24h 02/04/17 02/05/17 02/06/17 23:59 23:59 23:59 Intake Total 1503 1248 Output Total 125 125 Balance 1378 1123 General: Alert, Cooperative, No acute distress HEENT: Atraumatic, PERRLA Neck: Supple, No JVD, No thyromegaly Neuro: Alert, Disoriented, Non Focal Cardiovascular: Regular rate, Normal S1, Normal S2 Respiratory: Chest non-tender, No respiratory distress, Breath sounds nml Abdomen: Normal bowel sounds, Soft, No tenderness, No hepatospenomegaly Extremities: No clubbing, No cyanosis, No edema, Normal pulses, Other (left hip with clean dry bandage) Skin: No rashes, No breakdown, No significant lesion - Results Results: Laboratory Results WBC 10.9 x10^3/uL (4.8-10.8) H 02/06/17 04:54 RBC 3.62 10^6/uL (4.20-5.40) L 02/06/17 04:54 Hgb 11.5 g/dL (12.0-16.0) L 02/06/17 04:54 Hct 35.4 % (37.0-47.0) L 02/06/17 04:54 MCV 97.8 fL (81.0-99.0) 02/06/17 04:54 MCH 31.9 pg (27.0-31.0) H 02/06/17 04:54 MCHC 32.6 g/dL (32.0-36.0) 02/06/17 04:54 RDW 18.3 % (12.0-15.0) H 02/06/17 04:54 Plt Count 132 10^3/uL (130-450) 02/06/17 04:54 MPV 9.4 fL (7.9-10.8) 02/06/17 04:54 Neut # 9.4 10^3/uL (1.5-6.6) H 02/06/17 04:54 Lymph # 0.5 10^3/uL (1.5-3.5) L 02/06/17 04:54 [place] # 1.1 10^3/uL (0.0-1.0) H 02/06/17 04:54 Eos # 0.0 10^3/uL (0.0-0.7) 02/06/17 04:54 Baso # 0.0 10^3/uL (0.0-0.1) 02/06/17 04:54 Absolute Nucleated RBC 0.00 x10^3/uL 02/06/17 04:54 Nucleated RBCs 0.0 /100WBC 02/06/17 04:54 PT 17.5 secs (9.9-12.6) H 02/06/17 04:54 INR 1.5 (0.8-1.2) H 02/06/17 04:54 Sodium 135 mmol/L (135-145) 02/06/17 04:54 Potassium 4.7 mmol/L (3.5-5.0) 02/06/17 04:54 Chloride 107 mmol/L (101-111) 02/06/17 04:54 Carbon Dioxide 24 mmol/L (21-32) 02/06/17 04:54 Anion Gap 4.0 (6-13) L 02/06/17 04:54 BUN 18 mg/dL (6-20) 02/06/17 04:54 Creatinine 0.8 mg/dL (0.4-1.0) 02/06/17 04:54 Estimated GFR (MDRD) 68 (>89) L 02/06/17 04:54 Glucose 137 mg/dL (70-100) H 02/06/17 04:54 Calcium 8.4 mg/dL (8.5-10.3) L 02/06/17 04:54 Phosphorus 4.5 mg/dL (2.5-4.6) 02/05/17 04:51 Magnesium 2.6 mg/dL (1.7-2.8) 02/06/17 04:54 Total Bilirubin 0.9 mg/dL (0.2-1.0) 02/06/17 04:54 AST 26 IU/L (10-42) 02/06/17 04:54 ALT 13 IU/L (10-60) 02/06/17 04:54 Alkaline Phosphatase 81 IU/L (42-121) 02/06/17 04:54 Total Protein 6.1 g/dL (6.7-8.2) L 02/06/17 04:54 Albumin 3.4 g/dL (3.2-5.5) 02/06/17 04:54 Globulin 2.7 g/dL (2.1-4.2) 02/06/17 04:54 Albumin/Globulin Ratio 1.3 (1.0-2.2) 02/06/17 04:54 Lipase 48 U/L (22-51) 02/04/17 21:58 TSH 1.58 uIU/mL (0.34-5.60) 02/05/17 04:51 Thyroxine (T4) 5.73 ug/dL (6.09-12.23) L 02/05/17 04:51 Free T3 pg/mL 3.27 pg/mL (2.5-3.9) 02/05/17 04:51 Blood Type A POSITIVE 02/04/17 22:50 Antibody Screen NEGATIVE 02/04/17 22:50 Crossmatch IS Only See Detail 02/04/17 22:50 - Procedures Procedures: Procedures ENDOSC POLYPECTOMY OF LG INTEST (07/19/13)
--- NOTE | 2017-02-06 08:31 | PROVIDER PROGRESS NOTE ---
Subjective - General Admit Date: 02/04/17 Procedure Date: 02/05/17 Post Op Days: 1 Procedure Performed: bipolar hip arthroplasty - Review of Systems Wound/Incisions: positive: Dressing dry and intact Objective - Patient Data Reviewed Vital Signs: Yes Vital Signs: Vital Signs x48h Temp Pulse Resp BP Pulse Ox 02/06/17 08:19 36.5 C 51 L 16 150/81 H 100 02/06/17 03:47 36.5 C 85 16 121/63 96 Weight: Weight 02/04/17 02/05/17 02/06/17 23:59 23:59 23:59 Weight (kg) 51 kg Intake & Output: Intake and Output Totals x24h 02/04/17 02/05/17 02/06/17 23:59 23:59 23:59 Intake Total 1503 1488 Output Total 125 125 Balance 1378 1363 - Lab Results Lab Results: 02/06/17 04:54 02/06/17 04:54 Other Lab Results: Lab Results x24hrs 02/06/17 02/06/17 02/06/17 Range/Units 04:54 04:54 04:54 WBC (4.8-10.8) x10^3/uL RBC (4.20-5.40) 10^6/uL Hgb (12.0-16.0) g/dL Hct (37.0-47.0) % MCV (81.0-99.0) fL MCH (27.0-31.0) pg MCHC (32.0-36.0) g/dL RDW (12.0-15.0) % Plt Count (130-450) 10^3/uL MPV (7.9-10.8) fL Neut # (1.5-6.6) 10^3/uL Lymph # (1.5-3.5) 10^3/uL [place] # (0.0-1.0) 10^3/uL Eos # (0.0-0.7) 10^3/uL Baso # (0.0-0.1) 10^3/uL Absolute Nucleated RBC x10^3/uL Nucleated RBCs /100WBC PT 17.5 H (9.9-12.6) secs INR 1.5 H (0.8-1.2) Sodium 135 (135-145) mmol/L Potassium 4.7 (3.5-5.0) mmol/L Chloride 107 (101-111) mmol/L Carbon Dioxide 24 (21-32) mmol/L Anion Gap 4.0 L (6-13) BUN 18 (6-20) mg/dL Creatinine 0.8 (0.4-1.0) mg/dL Estimated GFR (MDRD) 68 L (>89) Glucose 137 H (70-100) mg/dL Calcium 8.4 L (8.5-10.3) mg/dL Magnesium 2.6 (1.7-2.8) mg/dL Total Bilirubin 0.9 (0.2-1.0) mg/dL AST 26 (10-42) IU/L ALT 13 (10-60) IU/L Alkaline Phosphatase 81 (42-121) IU/L B-Natriuretic Peptide 1472 H (5-100) pg/mL Total Protein 6.1 L (6.7-8.2) g/dL Albumin 3.4 (3.2-5.5) g/dL Globulin 2.7 (2.1-4.2) g/dL Albumin/Globulin Ratio 1.3 (1.0-2.2) Thyroxine (T4) (6.09-12.23) ug/dL Free T3 pg/mL (2.5-3.9) pg/mL 02/06/17 02/05/17 02/05/17 Range/Units 04:54 04:51 04:51 WBC 10.9 H (4.8-10.8) x10^3/uL RBC 3.62 L (4.20-5.40) 10^6/uL Hgb 11.5 L (12.0-16.0) g/dL Hct 35.4 L (37.0-47.0) % MCV 97.8 (81.0-99.0) fL MCH 31.9 H (27.0-31.0) pg MCHC 32.6 (32.0-36.0) g/dL RDW 18.3 H (12.0-15.0) % Plt Count 132 (130-450) 10^3/uL MPV 9.4 (7.9-10.8) fL Neut # 9.4 H (1.5-6.6) 10^3/uL Lymph # 0.5 L (1.5-3.5) 10^3/uL [place] # 1.1 H (0.0-1.0) 10^3/uL Eos # 0.0 (0.0-0.7) 10^3/uL Baso # 0.0 (0.0-0.1) 10^3/uL Absolute Nucleated RBC 0.00 x10^3/uL Nucleated RBCs 0.0 /100WBC PT (9.9-12.6) secs INR (0.8-1.2) Sodium (135-145) mmol/L Potassium (3.5-5.0) mmol/L Chloride (101-111) mmol/L Carbon Dioxide (21-32) mmol/L Anion Gap (6-13) BUN (6-20) mg/dL Creatinine (0.4-1.0) mg/dL Estimated GFR (MDRD) (>89) Glucose (70-100) mg/dL Calcium (8.5-10.3) mg/dL Magnesium (1.7-2.8) mg/dL Total Bilirubin (0.2-1.0) mg/dL AST (10-42) IU/L ALT (10-60) IU/L Alkaline Phosphatase (42-121) IU/L B-Natriuretic Peptide (5-100) pg/mL Total Protein (6.7-8.2) g/dL Albumin (3.2-5.5) g/dL Globulin (2.1-4.2) g/dL Albumin/Globulin Ratio (1.0-2.2) Thyroxine (T4) 5.73 L (6.09-12.23) ug/dL Free T3 pg/mL 3.27 (2.5-3.9) pg/mL - Imaging Results Radiology Imaging: positive: EMP read indepedently - Current Medications Current Medications: Current Medications Generic Name Dose Route Start Last Admin Trade Name Freq PRN Reason Stop Dose Admin Acetaminophen/Hydrocodone Bitart 1 tab 02/04/17 23:19 02/05/17 00:24 [place] 10 Mg/325 Mg PO 1 tab Q4HR PRN Administration Pain 8 to 10 Atorvastatin Calcium 10 mg 02/05/17 09:00 02/05/17 10:08 Lipitor PO Not Given DAILY CARMELO Diltiazem HCl 360 mg 02/05/17 09:00 02/05/17 09:17 Cardizem Cd PO 360 mg DAILY CARMELO Administration Hydromorphone HCl 1 mg 02/04/17 23:19 02/05/17 08:46 Dilaudid Inj IVP 1 mg Q2HR PRN Administration Pain 8 to 10 Sodium Chloride 1,000 mls @ 100 mls/hr 02/04/17 23:45 02/06/17 02:55 Normal Saline 0.9% IV 100 mls/hr .Q10H CARMELO Administration Latanoprost 1 drops 02/05/17 21:00 02/05/17 22:56 Xalatan Ophth Drops EACHEYE 1 drops QPM CARMELO Administration Losartan Potassium 25 mg 02/05/17 09:00 02/05/17 09:17 Cozaar PO 25 mg DAILY CARMELO Administration Metoprolol Succinate 25 mg 02/05/17 09:00 02/05/17 09:17 Toprol Xl PO 25 mg DAILY CARMELO Administration Nystatin 1 applic 02/05/17 09:00 02/05/17 22:57 Mycostatin Cream TOP Not Given BID CARMELO Pantoprazole Sodium 40 mg 02/05/17 07:00 02/06/17 06:10 Protonix PO 40 mg QDAC CARMELO Administration Polyethylene Glycol 17 gm 02/05/17 09:00 02/05/17 10:08 Miralax PO Not Given DAILY CARMELO Potassium Chloride 20 meq 02/05/17 08:00 02/05/17 10:08 K-Dur PO Not Given DAILYWM CARMELO Rivaroxaban 10 mg 02/05/17 17:00 02/05/17 22:56 Xarelto PO 10 mg 1700 CARMELO Administration Sodium Chloride 10 ml 02/04/17 23:19 02/05/17 00:26 Normal Saline Flush 0.9% IVP 10 ml PRN PRN Administration NEEDED PER PROVIDER ORDERS Sodium Chloride 10 ml 02/05/17 06:00 02/06/17 06:20 Normal Saline Flush 0.9% IVP Not Given Q8HR CARMELO Timolol Maleate 1 drops 02/05/17 09:00 02/05/17 22:57 Timoptic 0.5% Ophth Drops EACHEYE 1 drops BID CARMELO Administration Impression/Plan - Problem List Problem List: POD #1
[2017-02-06] MEDS: POLYETHYLENE GLYCOL 3350 17 GM PACKET PO SCH (09:21)
[2017-02-06] MEDS: POTASSIUM CHLORIDE 20 MEQ TABLET PO SCH (09:22)
[2017-02-06] MEDS: LOSARTAN 50 MG TABLET PO SCH (09:23)
[2017-02-06] MEDS: METOPROLOL SUCCINATE 25 MG TABLET PO SCH (09:23)
[2017-02-06] MEDS: FUROSEMIDE 40 MG TABLET PO SCH (09:23)
[2017-02-06] MEDS: HYDROcod/ACETAM 10 MG/325 MG TABLET PO PRN (09:23)
[2017-02-06] MEDS: ATORVASTATIN 10 MG TABLET PO SCH (09:24)
[2017-02-06] MEDS: NYSTATIN CREAM 15 GM TUBE TOP SCH ×2 (09:24→21:04)
[2017-02-06] MEDS: diltiaZEM CD 180 MG CAPSULE PO SCH (09:24)
[2017-02-06] MEDS: TIMOLOL 0.5% OPHTH DROPS EACHEYE SCH ×2 (09:25→21:04)
[2017-02-06] MEDS: HYDROcod/ACETAM 5/325 MG TABLET PO PRN (14:07)
[2017-02-06] MEDS: CHOLECALCIFEROL 5,000 UNIT CAPSULE PO SCH ×2 (14:34→21:04)
[2017-02-06] MEDS ORDERED: LORazepam 2 MG/ML VIAL IVP PRN (16:18)
[2017-02-06] MEDS ORDERED: LORazepam 2 MG/ML SYRINGE IVP PRN (16:20)
[2017-02-06 16:58] LABS: BASOPHILS % (AUTO) 0.1 %; HGB - HEMOGLOBIN 10.7 g/dL (12.0-16.0); LYMPHOCYTES # (AUTO) 0.9 10^3/uL (1.5-3.5); LYMPHOCYTES % (AUTO) 7.5 %; MEAN CORPUSCULAR HEMOGLOBIN 31.4 pg (27.0-31.0); MEAN CORPUSCULAR HGB CONC 32.4 g/dL (32.0-36.0); MEAN CORPUSCULAR VOLUME 96.8 fL (81.0-99.0); MEAN PLATELET VOLUME 8.7 fL (7.9-10.8); MONOCYTES # (AUTO) 1.6 10^3/uL (0.0-1.0); MONOCYTES % (AUTO) 13.5 %; NEUTROPHILS # (AUTO) 9.4 10^3/uL (1.5-6.6); NEUTROPHILS % (AUTO) 78.9 %; RED BLOOD COUNT 3.41 10^6/uL (4.20-5.40); RED CELL DISTRIBUTION WIDTH 18.2 % (12.0-15.0); UNCORRECTED WHITE BLOOD COUNT 11.9 x10^3/uL; WHITE BLOOD COUNT 11.9 x10^3/uL (4.8-10.8)
[2017-02-06 17:04] LABS: INR 2.4 (0.8-1.2); PT - PROTHROMBIN TIME 27.2 secs (9.9-12.6)
[2017-02-06 17:08] LABS: ALBUMIN/GLOBULIN RATIO 1.2 (1.0-2.2); BILIRUBIN,TOTAL 0.9 mg/dL (0.2-1.0); CALCIUM 8.7 mg/dL (8.5-10.3); CREATININE 0.9 mg/dL (0.4-1.0); POTASSIUM 4.3 mmol/L (3.5-5.0); TOTAL PROTEIN 5.6 g/dL (6.7-8.2)
[2017-02-06 17:18] LABS: PLATELET ESTIMATE, MANUAL NORMAL (130-450,000) (NORMAL); PLATELET MORPHOLOGY NORMAL APPEARANCE (NORMAL)
[2017-02-06] MEDS: RIVAROXABAN 10 MG TABLET PO SCH (17:33)
[2017-02-06] MEDS: LATANOPROST 0.005% OPHTH DROPS EACHEYE SCH (21:04)
[2017-02-07] MEDS: HYDROcod/ACETAM 5/325 MG TABLET PO PRN ×2 (05:21→19:35)
[2017-02-07] MEDS: SODIUM CHLORIDE FLUSH 0.9% 10 ML SYRINGE IVP SCH ×4 (05:22→21:35)
[2017-02-07 05:29] LABS: BASOPHILS % (AUTO) 0.2 %; EOSINOPHILS % (AUTO) 0.1 %; HCT - HEMATOCRIT 31.3 % (37.0-47.0); HGB - HEMOGLOBIN 10.3 g/dL (12.0-16.0); LYMPHOCYTES # (AUTO) 1.2 10^3/uL (1.5-3.5); LYMPHOCYTES % (AUTO) 11.5 %; MEAN CORPUSCULAR HEMOGLOBIN 32.1 pg (27.0-31.0); MEAN CORPUSCULAR HGB CONC 33.1 g/dL (32.0-36.0); MEAN CORPUSCULAR VOLUME 96.9 fL (81.0-99.0); MEAN PLATELET VOLUME 9.4 fL (7.9-10.8); MONOCYTES # (AUTO) 1.5 10^3/uL (0.0-1.0); NEUTROPHILS # (AUTO) 7.9 10^3/uL (1.5-6.6); NEUTROPHILS % (AUTO) 74.2 %; RED BLOOD COUNT 3.22 10^6/uL (4.20-5.40); RED CELL DISTRIBUTION WIDTH 18.3 % (12.0-15.0); UNCORRECTED WHITE BLOOD COUNT 10.6 x10^3/uL; WHITE BLOOD COUNT 10.6 x10^3/uL (4.8-10.8)
[2017-02-07 05:41] LABS: ALBUMIN/GLOBULIN RATIO 1.2 (1.0-2.2); CALCIUM 8.6 mg/dL (8.5-10.3); CREATININE 0.9 mg/dL (0.4-1.0); MAGNESIUM 1.8 mg/dL (1.7-2.8); PHOSPHORUS 2.6 mg/dL (2.5-4.6); POTASSIUM 4.2 mmol/L (3.5-5.0); TOTAL PROTEIN 5.8 g/dL (6.7-8.2)
[2017-02-07] MEDS: PANTOPRAZOLE 40 MG TABLET PO SCH (07:04)
--- NOTE | 2017-02-07 07:16 | PROVIDER PROGRESS NOTE ---
Subjective - General Admit Date: 02/04/17 Procedure Date: 02/05/17 Post Op Days: 2 Procedure Performed: bipolar hip arthroplasty - Review of Systems Wound/Incisions: positive: Dressing dry and intact Musculoskeletal: positive: Joint pain Psychiatric: positive: Confusion Objective - Patient Data Reviewed Vital Signs: Yes Vital Signs: Vital Signs x48h Temp Pulse Resp BP Pulse Ox 02/07/17 04:30 36.7 C 90 16 120/62 97 02/06/17 23:50 36.9 C 89 16 130/60 98 Intake & Output: Intake and Output Totals x24h 02/05/17 02/06/17 02/07/17 23:59 23:59 23:59 Intake Total 1503 1588 50 Output Total 125 2025 1200 Balance 4123 -777 -9607 - Lab Results Lab Results: 02/07/17 05:07 02/07/17 05:07 Other Lab Results: Lab Results x24hrs 02/07/17 02/07/17 02/06/17 Range/Units 05:07 05:07 16:35 WBC 10.6 (4.8-10.8) x10^3/uL RBC 3.22 L (4.20-5.40) 10^6/uL Hgb 10.3 L (12.0-16.0) g/dL Hct 31.3 L (37.0-47.0) % MCV 96.9 (81.0-99.0) fL MCH 32.1 H (27.0-31.0) pg MCHC 33.1 (32.0-36.0) g/dL RDW 18.3 H (12.0-15.0) % Plt Count 143 (130-450) 10^3/uL MPV 9.4 (7.9-10.8) fL Neut # 7.9 H (1.5-6.6) 10^3/uL Lymph # 1.2 L (1.5-3.5) 10^3/uL [place] # 1.5 H (0.0-1.0) 10^3/uL Eos # 0.0 (0.0-0.7) 10^3/uL Baso # 0.0 (0.0-0.1) 10^3/uL Absolute Nucleated RBC 0.00 x10^3/uL Nucleated RBCs 0.0 /100WBC Manual Slide Review Platelet Estimate (NORMAL) Platelet Morphology (NORMAL) RBC Morph Micro Appear (NORMAL) PT (9.9-12.6) secs INR (0.8-1.2) Sodium 135 136 (135-145) mmol/L Potassium 4.2 4.3 (3.5-5.0) mmol/L Chloride 101 102 (101-111) mmol/L Carbon Dioxide 28 25 (21-32) mmol/L Anion Gap 6.0 9.0 (6-13) BUN 20 19 (6-20) mg/dL Creatinine 0.9 0.9 (0.4-1.0) mg/dL Estimated GFR (MDRD) 60 L 60 L (>89) Glucose 107 H 159 H (70-100) mg/dL Calcium 8.6 8.7 (8.5-10.3) mg/dL Phosphorus 2.6 (2.5-4.6) mg/dL Magnesium 1.8 (1.7-2.8) mg/dL Total Bilirubin 1.0 0.9 (0.2-1.0) mg/dL AST 21 26 (10-42) IU/L ALT 11 11 (10-60) IU/L Alkaline Phosphatase 74 65 (42-121) IU/L Ammonia (7-35) umol/L B-Natriuretic Peptide (5-100) pg/mL Total Protein 5.8 L 5.6 L (6.7-8.2) g/dL Albumin 3.2 3.1 L (3.2-5.5) g/dL Globulin 2.6 2.5 (2.1-4.2) g/dL Albumin/Globulin Ratio 1.2 1.2 (1.0-2.2) 02/06/17 02/06/17 02/06/17 Range/Units 16:35 16:35 12:45 WBC 11.9 H (4.8-10.8) x10^3/uL RBC 3.41 L (4.20-5.40) 10^6/uL Hgb 10.7 L (12.0-16.0) g/dL Hct 33.0 L (37.0-47.0) % MCV 96.8 (81.0-99.0) fL MCH 31.4 H (27.0-31.0) pg MCHC 32.4 (32.0-36.0) g/dL RDW 18.2 H (12.0-15.0) % Plt Count 137 (130-450) 10^3/uL MPV 8.7 (7.9-10.8) fL Neut # 9.4 H (1.5-6.6) 10^3/uL Lymph # 0.9 L (1.5-3.5) 10^3/uL [place] # 1.6 H (0.0-1.0) 10^3/uL Eos # 0.0 (0.0-0.7) 10^3/uL Baso # 0.0 (0.0-0.1) 10^3/uL Absolute Nucleated RBC 0.00 x10^3/uL Nucleated RBCs 0.0 /100WBC Manual Slide Review Indicated Platelet Estimate NORMAL (130-450,000) (NORMAL) Platelet Morphology NORMAL APPEARANCE (NORMAL) RBC Morph Micro Appear 1+ ANISOCYTOSIS (NORMAL) PT 27.2 H (9.9-12.6) secs INR 2.4 H (0.8-1.2) Sodium (135-145) mmol/L Potassium (3.5-5.0) mmol/L Chloride (101-111) mmol/L Carbon Dioxide (21-32) mmol/L Anion Gap (6-13) BUN (6-20) mg/dL Creatinine (0.4-1.0) mg/dL Estimated GFR (MDRD) (>89) Glucose (70-100) mg/dL Calcium (8.5-10.3) mg/dL Phosphorus (2.5-4.6) mg/dL Magnesium (1.7-2.8) mg/dL Total Bilirubin (0.2-1.0) mg/dL AST (10-42) IU/L ALT (10-60) IU/L Alkaline Phosphatase (42-121) IU/L Ammonia 12.6 (7-35) umol/L B-Natriuretic Peptide (5-100) pg/mL Total Protein (6.7-8.2) g/dL Albumin (3.2-5.5) g/dL Globulin (2.1-4.2) g/dL Albumin/Globulin Ratio (1.0-2.2) 02/06/17 Range/Units 04:54 WBC (4.8-10.8) x10^3/uL RBC (4.20-5.40) 10^6/uL Hgb (12.0-16.0) g/dL Hct (37.0-47.0) % MCV (81.0-99.0) fL MCH (27.0-31.0) pg MCHC (32.0-36.0) g/dL RDW (12.0-15.0) % Plt Count (130-450) 10^3/uL MPV (7.9-10.8) fL Neut # (1.5-6.6) 10^3/uL Lymph # (1.5-3.5) 10^3/uL [place] # (0.0-1.0) 10^3/uL Eos # (0.0-0.7) 10^3/uL Baso # (0.0-0.1) 10^3/uL Absolute Nucleated RBC x10^3/uL Nucleated RBCs /100WBC Manual Slide Review Platelet Estimate (NORMAL) Platelet Morphology (NORMAL) RBC Morph Micro Appear (NORMAL) PT (9.9-12.6) secs INR (0.8-1.2) Sodium (135-145) mmol/L Potassium (3.5-5.0) mmol/L Chloride (101-111) mmol/L Carbon Dioxide (21-32) mmol/L Anion Gap (6-13) BUN (6-20) mg/dL Creatinine (0.4-1.0) mg/dL Estimated GFR (MDRD) (>89) Glucose (70-100) mg/dL Calcium (8.5-10.3) mg/dL Phosphorus (2.5-4.6) mg/dL Magnesium (1.7-2.8) mg/dL Total Bilirubin (0.2-1.0) mg/dL AST (10-42) IU/L ALT (10-60) IU/L Alkaline Phosphatase (42-121) IU/L Ammonia (7-35) umol/L B-Natriuretic Peptide 1472 H (5-100) pg/mL Total Protein (6.7-8.2) g/dL Albumin (3.2-5.5) g/dL Globulin (2.1-4.2) g/dL Albumin/Globulin Ratio (1.0-2.2) - Current Medications Current Medications: Current Medications Generic Name Dose Route Start Last Admin Trade Name Freq PRN Reason Stop Dose Admin Acetaminophen/Hydrocodone Bitart 1 tab 02/04/17 23:19 02/07/17 05:21 [place] 5/325 PO 1 tab Q4HR PRN Administration Pain 5 to 7 Acetaminophen/Hydrocodone Bitart 1 tab 02/04/17 23:19 02/06/17 09:23 [place] 10 Mg/325 Mg PO 1 tab Q4HR PRN Administration Pain 8 to 10 Cholecalciferol 5,000 unit 02/06/17 12:00 02/06/17 21:04 Vitamin D3 PO Not Given BID CARMELO Diltiazem HCl 360 mg 02/05/17 09:00 02/06/17 09:24 Cardizem Cd PO 360 mg DAILY CARMELO Administration Furosemide 20 mg 02/06/17 09:00 02/06/17 09:23 Lasix PO 20 mg DAILY CARMELO Administration Hydromorphone HCl 1 mg 02/04/17 23:19 02/05/17 08:46 Dilaudid Inj IVP 1 mg Q2HR PRN Administration Pain 8 to 10 Latanoprost 1 drops 02/05/17 21:00 02/06/17 21:04 Xalatan Ophth Drops EACHEYE Not Given QPM CARMELO Losartan Potassium 25 mg 02/05/17 09:00 02/06/17 09:23 Cozaar PO 25 mg DAILY CARMELO Administration Metoprolol Succinate 25 mg 02/05/17 09:00 02/06/17 09:23 Toprol Xl PO 25 mg DAILY CARMELO Administration Nystatin 1 applic 02/05/17 09:00 02/06/17 21:04 Mycostatin Cream TOP Not Given BID CARMELO Pantoprazole Sodium 40 mg 02/05/17 07:00 02/07/17 07:04 Protonix PO 40 mg QDAC CARMELO Administration Polyethylene Glycol 17 gm 02/05/17 09:00 02/06/17 09:21 Miralax PO 17 gm DAILY CARMELO Administration Potassium Chloride 20 meq 02/05/17 08:00 02/06/17 09:22 K-Dur PO 20 meq DAILYWM CARMELO Administration Rivaroxaban 10 mg 02/05/17 17:00 02/06/17 17:33 Xarelto PO 10 mg 1700 CARMELO Administration Sodium Chloride 10 ml 02/04/17 23:19 02/05/17 00:26 Normal Saline Flush 0.9% IVP 10 ml PRN PRN Administration NEEDED PER PROVIDER ORDERS Sodium Chloride 10 ml 02/05/17 06:00 02/07/17 06:59 Normal Saline Flush 0.9% IVP 10 ml Q8HR CARMELO Administration Timolol Maleate 1 drops 02/05/17 09:00 02/06/17 21:04 Timoptic 0.5% Ophth Drops EACHEYE Not Given BID CARMELO - Physical Exam Wound/Incisions: positive: Dressing dry and intact Skin: positive: Warm, Dry Extremities: positive: Joint swelling Neurologic/Psychiatric: positive: Motor nml, Sensation nml, Disoriented to place , Disoriented to time Impression/Plan - Problem List Problem List: pOD#2 Pt is progressing as expected. Hip appears to be doing fine Pt. has a left knee effusion most likely secondary to fall. No evidence of knee injury by palpation or Rom. Plan: prepare for SNF placement Dr. Ross to cover for Orthopedics during the patient's remaining stay. Office f/u with Dr. Melissa on Discharge (3wks).
[2017-02-07] MEDS: NYSTATIN CREAM 15 GM TUBE TOP SCH ×3 (09:00→21:41)
--- NOTE | 2017-02-07 09:20 | PROVIDER PROGRESS NOTE ---
Subjective - Prog Note Date Prog Note Date: 02/07/17 - Subjective Pt reports feeling: Improved Subjective: pt is oriented. pt report she still has pain when she move her left lower extremity which made her difficult to walk. Pt also state if she took the pain medication, which will make her "goofy". Per night hospitalist report, hold CIWA protocol, and hold Ativan. Current Medications - Current Medications Current Medications: Active Medications Acetaminophen (Tylenol) 650 mg PO Q4HR PRN PRN Reason: Pain 1 to 4 Acetaminophen/Hydrocodone Bitart ([place] 5/325) 1 tab PO Q4HR PRN PRN Reason: Pain 5 to 7 Last Admin: 02/07/17 05:21 Dose: 1 tab Acetaminophen/Hydrocodone Bitart ([place] 10 Mg/325 Mg) 1 tab PO Q4HR PRN PRN Reason: Pain 8 to 10 Last Admin: 02/06/17 09:23 Dose: 1 tab Albuterol () 2.5 mg INH RTQ4H PRN PRN Reason: Wheezing Cholecalciferol (Vitamin D3) 5,000 unit PO BID [facility] Last Admin: 02/06/17 21:04 Dose: Not Given Diltiazem HCl (Cardizem Cd) 360 mg PO DAILY [facility] Last Admin: 02/06/17 09:24 Dose: 360 mg Furosemide (Lasix) 20 mg PO DAILY [facility] Last Admin: 02/06/17 09:23 Dose: 20 mg Hydromorphone HCl (Dilaudid Inj) 1 mg IVP Q2HR PRN PRN Reason: Pain 8 to 10 Last Admin: 02/05/17 08:46 Dose: 1 mg Latanoprost (Xalatan Ophth Drops) 1 drops EACHEYE QPM [facility] Last Admin: 02/06/17 21:04 Dose: Not Given Losartan Potassium (Cozaar) 25 mg PO DAILY [facility] Last Admin: 02/06/17 09:23 Dose: 25 mg Metoprolol Succinate (Toprol Xl) 25 mg PO DAILY [facility] Last Admin: 02/06/17 09:23 Dose: 25 mg Nystatin (Mycostatin Cream) 1 applic TOP BID [facility] Last Admin: 02/06/17 21:04 Dose: Not Given Ondansetron HCl (Zofran Inj) 4 mg IVP Q6HR PRN PRN Reason: Nausea / Vomiting Pantoprazole Sodium (Protonix) 40 mg PO QDAC [facility] Last Admin: 02/07/17 07:04 Dose: 40 mg Polyethylene Glycol (Miralax) 17 gm PO DAILY [facility] Last Admin: 02/06/17 09:21 Dose: 17 gm Potassium Chloride (K-Dur) 20 meq PO DAILYWM [facility] Last Admin: 02/06/17 09:22 Dose: 20 meq Prochlorperazine Edisylate (Compazine Inj) 10 mg IVP Q6HR PRN PRN Reason: Nausea / Vomiting Rivaroxaban (Xarelto) 10 mg PO 1700 [facility] Last Admin: 02/06/17 17:33 Dose: 10 mg Sodium Chloride (Normal Saline Flush 0.9%) 10 ml IVP PRN PRN PRN Reason: NEEDED PER PROVIDER ORDERS Last Admin: 02/05/17 00:26 Dose: 10 ml Sodium Chloride (Normal Saline Flush 0.9%) 10 ml IVP Q8HR [facility] Last Admin: 02/07/17 06:59 Dose: 10 ml Timolol Maleate (Timoptic 0.5% Ophth Drops) 1 drops EACHEYE BID [facility] Last Admin: 02/06/17 21:04 Dose: Not Given Losartan [Cozaar] 25 mg PO DAILY 07/16/13 Pravastatin Sodium [Pravachol] 40 mg PO DAILY 07/16/13 Rivaroxaban [Xarelto] 15 mg PO DAILY 07/19/13 Diltiazem HCl [Taztia Xt] 360 mg PO DAILY 12/11/16 Metoprolol Succinate [Toprol Xl] 25 mg PO DAILY 12/11/16 Omeprazole 20 mg PO DAILY 12/11/16 Albuterol Sulfate [Proair Hfa Inhaler] 2 puffs INH Q6H PRN 12/12/16 Famotidine [Pepcid] 20 mg PO BID 12/12/16 Furosemide 20 mg PO DAILY 12/12/16 Latanoprost 0.005% Ophth Drops [Xalatan Ophth Drops] 1 drops EACHEYE QPM Timolol 0.5% Ophth Drops [Timoptic 0.5% Ophth Drops] 1 drops EACHEYE BID Objective - Vital Signs/Intake & Output Reviewed Vital Signs: Yes Vital Signs: Vital Signs x48h Temp Pulse Resp BP Pulse Ox 02/07/17 08:03 36.5 C 94 16 120/56 L 98 02/07/17 07:46 95 02/07/17 04:30 36.7 C 90 16 120/62 97 Intake & Output: Intake & Output 02/04/17 02/05/17 02/06/17 02/07/17 23:59 23:59 23:59 23:59 Intake Total 1503 1588 50 Output Total 125 5 1200 Balance 9548 437 -3440 - Objective General Appearance: positive: No acute distress, Alert. negative: Lethargic Eyes Bilateral: positive: Normal inspection, PERRL. negative: No lid inflammation, Conjunctivae nml ENT: positive: ENT inspection nml, Pharynx nml, No signs of dehydration. negative: Purulent nasal drainage, Pharyngeal erythema Neck: positive: Nml inspection, Thyroid nml, Trachea midline. negative: Thyromegaly, Lymphadenopathy (R), Lymphadenopathy (L), Swelling/bruising, Tracheal deviation Respiratory: positive: Chest non-tender, No respiratory distress, Breath sounds nml. negative: Wheezes, Rales, Rhonchi Cardiovascular: positive: Regular rate & rhythm, No murmur, No gallop. negative : Tachycardia, Bradycardia, Systolic murmur, Diastolic murmur Peripheral Pulses: 2+ Radial (R), 2+ Radial (L), 2+ Dorsalis pedis (R), 2+ Dorsalis pedis (L) Abdomen: positive: Non-tender, No organomegaly, Nml bowel sounds, No distention. negative: Tenderness, Guarding, Rebound Back: positive: Nml inspection. negative: CVA tenderness (R), CVA tenderness (L ) Skin: positive: Color nml, No rash, Warm, Dry. negative: Diaphoresis, Skin rash Extremities: positive: Non-tender, Other. negative: Daquan's sign/cords Neurologic/Psychiatric: positive: Oriented x3, Sensation nml, Mood/affect nml. negative: Sensory loss, Facial droop, Slurred/abnml speech, Depressed mood/ affect - Lab Results Fish Bones: 02/07/17 05:07 02/07/17 05:07 Other Labs: Lab Results x24hrs 02/07/17 02/07/17 02/06/17 Range/Units 05:07 05:07 16:35 WBC 10.6 (4.8-10.8) x10^3/uL RBC 3.22 L (4.20-5.40) 10^6/uL Hgb 10.3 L (12.0-16.0) g/dL Hct 31.3 L (37.0-47.0) % MCV 96.9 (81.0-99.0) fL MCH 32.1 H (27.0-31.0) pg MCHC 33.1 (32.0-36.0) g/dL RDW 18.3 H (12.0-15.0) % Plt Count 143 (130-450) 10^3/uL MPV 9.4 (7.9-10.8) fL Neut # 7.9 H (1.5-6.6) 10^3/uL Lymph # 1.2 L (1.5-3.5) 10^3/uL [place] # 1.5 H (0.0-1.0) 10^3/uL Eos # 0.0 (0.0-0.7) 10^3/uL Baso # 0.0 (0.0-0.1) 10^3/uL Absolute Nucleated RBC 0.00 x10^3/uL Nucleated RBCs 0.0 /100WBC Manual Slide Review Platelet Estimate (NORMAL) Platelet Morphology (NORMAL) RBC Morph Micro Appear (NORMAL) PT (9.9-12.6) secs INR (0.8-1.2) Sodium 135 136 (135-145) mmol/L Potassium 4.2 4.3 (3.5-5.0) mmol/L Chloride 101 102 (101-111) mmol/L Carbon Dioxide 28 25 (21-32) mmol/L Anion Gap 6.0 9.0 (6-13) BUN 20 19 (6-20) mg/dL Creatinine 0.9 0.9 (0.4-1.0) mg/dL Estimated GFR (MDRD) 60 L 60 L (>89) Glucose 107 H 159 H (70-100) mg/dL Calcium 8.6 8.7 (8.5-10.3) mg/dL Phosphorus 2.6 (2.5-4.6) mg/dL Magnesium 1.8 (1.7-2.8) mg/dL Total Bilirubin 1.0 0.9 (0.2-1.0) mg/dL AST 21 26 (10-42) IU/L ALT 11 11 (10-60) IU/L Alkaline Phosphatase 74 65 (42-121) IU/L Ammonia (7-35) umol/L Total Protein 5.8 L 5.6 L (6.7-8.2) g/dL Albumin 3.2 3.1 L (3.2-5.5) g/dL Globulin 2.6 2.5 (2.1-4.2) g/dL Albumin/Globulin Ratio 1.2 1.2 (1.0-2.2) 02/06/17 02/06/17 02/06/17 Range/Units 16:35 16:35 12:45 WBC 11.9 H (4.8-10.8) x10^3/uL RBC 3.41 L (4.20-5.40) 10^6/uL Hgb 10.7 L (12.0-16.0) g/dL Hct 33.0 L (37.0-47.0) % MCV 96.8 (81.0-99.0) fL MCH 31.4 H (27.0-31.0) pg MCHC 32.4 (32.0-36.0) g/dL RDW 18.2 H (12.0-15.0) % Plt Count 137 (130-450) 10^3/uL MPV 8.7 (7.9-10.8) fL Neut # 9.4 H (1.5-6.6) 10^3/uL Lymph # 0.9 L (1.5-3.5) 10^3/uL [place] # 1.6 H (0.0-1.0) 10^3/uL Eos # 0.0 (0.0-0.7) 10^3/uL Baso # 0.0 (0.0-0.1) 10^3/uL Absolute Nucleated RBC 0.00 x10^3/uL Nucleated RBCs 0.0 /100WBC Manual Slide Review Indicated Platelet Estimate NORMAL (130-450,000) (NORMAL) Platelet Morphology NORMAL APPEARANCE (NORMAL) RBC Morph Micro Appear 1+ ANISOCYTOSIS (NORMAL) PT 27.2 H (9.9-12.6) secs INR 2.4 H (0.8-1.2) Sodium (135-145) mmol/L Potassium (3.5-5.0) mmol/L Chloride (101-111) mmol/L Carbon Dioxide (21-32) mmol/L Anion Gap (6-13) BUN (6-20) mg/dL Creatinine (0.4-1.0) mg/dL Estimated GFR (MDRD) (>89) Glucose (70-100) mg/dL Calcium (8.5-10.3) mg/dL Phosphorus (2.5-4.6) mg/dL Magnesium (1.7-2.8) mg/dL Total Bilirubin (0.2-1.0) mg/dL AST (10-42) IU/L ALT (10-60) IU/L Alkaline Phosphatase (42-121) IU/L Ammonia 12.6 (7-35) umol/L Total Protein (6.7-8.2) g/dL Albumin (3.2-5.5) g/dL Globulin (2.1-4.2) g/dL Albumin/Globulin Ratio (1.0-2.2) Assessment/Plan - Problem List (1) Left displaced femoral neck fracture Impression: - Problem List (1) Left displaced femoral neck fracture, status post of surgery for two days Assessment/Plan: surgery done, status post of bipolar hip arthroplasty for two days. pt report she has pain when she ambulate, but pt also report the pain meds make her goofy. add Motrin PRN for two days she is to be up with PT today, continue to monitor CBC with daily lab draws. continue Xarelto. encourage ambulation when tolerated. will need rehab set up and plan for discharge. (2) Afib with Anticoagulant long-term use Assessment/Plan: stable. patient was put back on Xarelto. continue home dosage. continue to monitor for bleeding and monitor CBC with daily lab draws. (3) confusion pt is oriented today, continue to hold Ativan, closely monitor.
[2017-02-07] MEDS: POTASSIUM CHLORIDE 20 MEQ TABLET PO SCH (09:58)
[2017-02-07] MEDS: FUROSEMIDE 40 MG TABLET PO SCH (09:58)
[2017-02-07] MEDS: LOSARTAN 50 MG TABLET PO SCH (09:58)
[2017-02-07] MEDS: CHOLECALCIFEROL 5,000 UNIT CAPSULE PO SCH ×2 (09:58→21:35)
[2017-02-07] MEDS: diltiaZEM CD 180 MG CAPSULE PO SCH (09:58)
[2017-02-07] MEDS: METOPROLOL SUCCINATE 25 MG TABLET PO SCH (09:59)
[2017-02-07] MEDS: TIMOLOL 0.5% OPHTH DROPS EACHEYE SCH ×2 (10:00→21:35)
[2017-02-07] MEDS: POLYETHYLENE GLYCOL 3350 17 GM PACKET PO SCH (10:00)
[2017-02-07] MEDS: IBUPROFEN 400 MG TABLET PO PRN ×2 (10:54→21:35)
[2017-02-07] MEDS: RIVAROXABAN 10 MG TABLET PO SCH (16:59)
[2017-02-07] MEDS: LATANOPROST 0.005% OPHTH DROPS EACHEYE SCH (21:40)
[2017-02-08] MEDS: HYDROcod/ACETAM 5/325 MG TABLET PO PRN ×2 (02:18→23:35)
[2017-02-08 05:46] LABS: BASOPHILS % (AUTO) 0.3 %; EOSINOPHILS # (AUTO) 0.1 10^3/uL (0.0-0.7); EOSINOPHILS % (AUTO) 0.7 %; HCT - HEMATOCRIT 27.1 % (37.0-47.0); HGB - HEMOGLOBIN 9.1 g/dL (12.0-16.0); LYMPHOCYTES # (AUTO) 1.4 10^3/uL (1.5-3.5); LYMPHOCYTES % (AUTO) 17.4 %; MEAN CORPUSCULAR HEMOGLOBIN 31.9 pg (27.0-31.0); MEAN CORPUSCULAR HGB CONC 33.6 g/dL (32.0-36.0); MEAN CORPUSCULAR VOLUME 95.1 fL (81.0-99.0); MEAN PLATELET VOLUME 9.6 fL (7.9-10.8); MONOCYTES # (AUTO) 1.3 10^3/uL (0.0-1.0); MONOCYTES % (AUTO) 15.9 %; NEUTROPHILS # (AUTO) 5.4 10^3/uL (1.5-6.6); NEUTROPHILS % (AUTO) 65.7 %; RED BLOOD COUNT 2.85 10^6/uL (4.20-5.40); RED CELL DISTRIBUTION WIDTH 17.9 % (12.0-15.0); UNCORRECTED WHITE BLOOD COUNT 8.2 x10^3/uL; WHITE BLOOD COUNT 8.2 x10^3/uL (4.8-10.8)
[2017-02-08 05:47] LABS: ALBUMIN/GLOBULIN RATIO 1.1 (1.0-2.2); CALCIUM 8.5 mg/dL (8.5-10.3); CREATININE 1.2 mg/dL (0.4-1.0)
[2017-02-08] MEDS: SODIUM CHLORIDE FLUSH 0.9% 10 ML SYRINGE IVP SCH ×3 (06:15→20:35)
[2017-02-08] MEDS: PANTOPRAZOLE 40 MG TABLET PO SCH (06:15)
[2017-02-08] MEDS: SODIUM CHLORIDE 0.9% 1,000 ML IV SCH ×2 (07:41→16:30)
--- NOTE | 2017-02-08 08:11 | PROVIDER PROGRESS NOTE ---
Subjective - Prog Note Date Prog Note Date: 02/08/17 - Subjective Pt reports feeling: Improved Subjective: pt state she feel better. Pt also state she still feel pain when she move her left lower extremity. Pt denies chest pain, shortness of breathing, headache or other complaints. Pt's SO2 98% with 2 liter O2. Will wane off O2 to see SO2. Current Medications - Current Medications Current Medications: Active Medications Acetaminophen (Tylenol) 650 mg PO Q4HR PRN PRN Reason: Pain 1 to 4 Acetaminophen/Hydrocodone Bitart ([place] 5/325) 1 tab PO Q4HR PRN PRN Reason: Pain 5 to 7 Last Admin: 02/08/17 02:18 Dose: 1 tab Acetaminophen/Hydrocodone Bitart ([place] 10 Mg/325 Mg) 1 tab PO Q4HR PRN PRN Reason: Pain 8 to 10 Last Admin: 02/06/17 09:23 Dose: 1 tab Albuterol () 2.5 mg INH RTQ4H PRN PRN Reason: Wheezing Cholecalciferol (Vitamin D3) 5,000 unit PO BID [facility] Last Admin: 02/07/17 21:35 Dose: 5,000 unit Diltiazem HCl (Cardizem Cd) 360 mg PO DAILY [facility] Last Admin: 02/07/17 09:58 Dose: 360 mg Furosemide (Lasix) 20 mg PO DAILY [facility] Last Admin: 02/07/17 09:58 Dose: 20 mg Hydromorphone HCl (Dilaudid Inj) 1 mg IVP Q2HR PRN PRN Reason: Pain 8 to 10 Last Admin: 02/05/17 08:46 Dose: 1 mg Sodium Chloride (Normal Saline 0.9%) 1,000 mls @ 100 mls/hr IV .Q10H [facility] Last Admin: 02/08/17 07:41 Dose: 100 mls/hr Ibuprofen (Motrin) 600 mg PO Q12H PRN PRN Reason: PAIN Last Admin: 02/07/17 21:35 Dose: 600 mg Latanoprost (Xalatan Ophth Drops) 1 drops EACHEYE QPM [facility] Last Admin: 02/07/17 21:40 Dose: 1 drops Losartan Potassium (Cozaar) 25 mg PO DAILY [facility] Last Admin: 02/07/17 09:58 Dose: 25 mg Metoprolol Succinate (Toprol Xl) 25 mg PO DAILY [facility] Last Admin: 02/07/17 09:59 Dose: 25 mg Nystatin (Mycostatin Cream) 1 applic TOP BID [facility] Last Admin: 02/07/17 21:41 Dose: Not Given Ondansetron HCl (Zofran Inj) 4 mg IVP Q6HR PRN PRN Reason: Nausea / Vomiting Pantoprazole Sodium (Protonix) 40 mg PO QDAC [facility] Last Admin: 02/08/17 06:15 Dose: 40 mg Polyethylene Glycol (Miralax) 17 gm PO DAILY [facility] Last Admin: 02/07/17 10:00 Dose: Not Given Potassium Chloride (K-Dur) 20 meq PO DAILYWM [facility] Last Admin: 02/07/17 09:58 Dose: 20 meq Prochlorperazine Edisylate (Compazine Inj) 10 mg IVP Q6HR PRN PRN Reason: Nausea / Vomiting Rivaroxaban (Xarelto) 10 mg PO 1700 [facility] Last Admin: 02/07/17 16:59 Dose: 10 mg Sodium Chloride (Normal Saline Flush 0.9%) 10 ml IVP PRN PRN PRN Reason: NEEDED PER PROVIDER ORDERS Last Admin: 02/05/17 00:26 Dose: 10 ml Sodium Chloride (Normal Saline Flush 0.9%) 10 ml IVP Q8HR [facility] Last Admin: 02/08/17 07:41 Dose: 10 ml Timolol Maleate (Timoptic 0.5% Ophth Drops) 1 drops EACHEYE BID [facility] Last Admin: 02/07/17 21:35 Dose: 1 drops Losartan [Cozaar] 25 mg PO DAILY 07/16/13 Pravastatin Sodium [Pravachol] 40 mg PO DAILY 07/16/13 Rivaroxaban [Xarelto] 15 mg PO DAILY 07/19/13 Diltiazem HCl [Taztia Xt] 360 mg PO DAILY 12/11/16 Metoprolol Succinate [Toprol Xl] 25 mg PO DAILY 12/11/16 Omeprazole 20 mg PO DAILY 12/11/16 Albuterol Sulfate [Proair Hfa Inhaler] 2 puffs INH Q6H PRN 12/12/16 Famotidine [Pepcid] 20 mg PO BID 12/12/16 Furosemide 20 mg PO DAILY 12/12/16 Latanoprost 0.005% Ophth Drops [Xalatan Ophth Drops] 1 drops EACHEYE QPM Timolol 0.5% Ophth Drops [Timoptic 0.5% Ophth Drops] 1 drops EACHEYE BID Objective - Vital Signs/Intake & Output Reviewed Vital Signs: Yes Vital Signs: Vital Signs x48h Temp Pulse Resp BP Pulse Ox 02/08/17 05:00 36.4 C L 72 16 108/59 L 98 02/08/17 02:15 61 115/46 L 02/08/17 01:27 36.4 C L 60 16 91/48 L 92 Intake & Output: Intake & Output 02/05/17 02/06/17 02/07/17 02/08/17 23:59 23:59 23:59 23:59 Intake Total 1503 1588 770 Output Total 125 5 2500 Balance 4663 -140 -4804 - Objective General Appearance: positive: No acute distress, Alert. negative: Lethargic Eyes Bilateral: positive: Normal inspection, PERRL. negative: No lid inflammation, Conjunctivae nml ENT: positive: ENT inspection nml, Pharynx nml, No signs of dehydration. negative: Purulent nasal drainage, Pharyngeal erythema Neck: positive: Nml inspection, Thyroid nml, Trachea midline. negative: Thyromegaly, Lymphadenopathy (R), Lymphadenopathy (L), Swelling/bruising, Tracheal deviation Respiratory: positive: Chest non-tender, No respiratory distress, Breath sounds nml. negative: Wheezes, Rales, Rhonchi Cardiovascular: positive: Regular rate & rhythm, No murmur, No gallop, Irregularly irregular. negative: Tachycardia, Bradycardia, Systolic murmur, Diastolic murmur Peripheral Pulses: 2+ Radial (R), 2+ Radial (L), 2+ Dorsalis pedis (R), 2+ Dorsalis pedis (L) Abdomen: positive: Non-tender, Nml bowel sounds, No distention. negative: Tenderness, Guarding, Rebound Back: positive: Nml inspection. negative: CVA tenderness (R), CVA tenderness (L ) Skin: positive: Color nml, Warm, Dry. negative: Diaphoresis, Pallor, Decubitus Extremities: positive: Non-tender, Nml appearance. negative: Pedal edema, Calf tenderness, Daquan's sign/cords Neurologic/Psychiatric: positive: Oriented x3, Sensation nml, Mood/affect nml. negative: Sensory loss, Facial droop, Slurred/abnml speech, Depressed mood/ affect - Lab Results Fish Bones: 02/08/17 05:14 02/08/17 05:14 Other Labs: Lab Results x24hrs 02/08/17 02/08/17 02/07/17 Range/Units 05:14 05:14 11:19 WBC 8.2 (4.8-10.8) x10^3/uL RBC 2.85 L (4.20-5.40) 10^6/uL Hgb 9.1 L (12.0-16.0) g/dL Hct 27.1 L (37.0-47.0) % MCV 95.1 (81.0-99.0) fL MCH 31.9 H (27.0-31.0) pg MCHC 33.6 (32.0-36.0) g/dL RDW 17.9 H (12.0-15.0) % Plt Count 140 (130-450) 10^3/uL MPV 9.6 (7.9-10.8) fL Neut # 5.4 (1.5-6.6) 10^3/uL Lymph # 1.4 L (1.5-3.5) 10^3/uL [place] # 1.3 H (0.0-1.0) 10^3/uL Eos # 0.1 (0.0-0.7) 10^3/uL Baso # 0.0 (0.0-0.1) 10^3/uL Absolute Nucleated RBC 0.00 x10^3/uL Nucleated RBCs 0.0 /100WBC Sodium 135 (135-145) mmol/L Potassium 4.0 (3.5-5.0) mmol/L Chloride 99 L (101-111) mmol/L Carbon Dioxide 28 (21-32) mmol/L Anion Gap 8.0 (6-13) BUN 24 H (6-20) mg/dL Creatinine 1.2 H (0.4-1.0) mg/dL Estimated GFR (MDRD) 43 L (>89) Glucose 101 H (70-100) mg/dL POC Whole Bld Glucose 116 H (70 - 100) mg/dL Calcium 8.5 (8.5-10.3) mg/dL Total Bilirubin 1.0 (0.2-1.0) mg/dL AST 17 (10-42) IU/L ALT 10 (10-60) IU/L Alkaline Phosphatase 67 (42-121) IU/L Total Protein 5.0 L (6.7-8.2) g/dL Albumin 2.6 L (3.2-5.5) g/dL Globulin 2.4 (2.1-4.2) g/dL Albumin/Globulin Ratio 1.1 (1.0-2.2) 02/07/17 02/06/17 Range/Units 07:33 20:59 WBC (4.8-10.8) x10^3/uL RBC (4.20-5.40) 10^6/uL Hgb (12.0-16.0) g/dL Hct (37.0-47.0) % MCV (81.0-99.0) fL MCH (27.0-31.0) pg MCHC (32.0-36.0) g/dL RDW (12.0-15.0) % Plt Count (130-450) 10^3/uL MPV (7.9-10.8) fL Neut # (1.5-6.6) 10^3/uL Lymph # (1.5-3.5) 10^3/uL [place] # (0.0-1.0) 10^3/uL Eos # (0.0-0.7) 10^3/uL Baso # (0.0-0.1) 10^3/uL Absolute Nucleated RBC x10^3/uL Nucleated RBCs /100WBC Sodium (135-145) mmol/L Potassium (3.5-5.0) mmol/L Chloride (101-111) mmol/L Carbon Dioxide (21-32) mmol/L Anion Gap (6-13) BUN (6-20) mg/dL Creatinine (0.4-1.0) mg/dL Estimated GFR (MDRD) (>89) Glucose (70-100) mg/dL POC Whole Bld Glucose 94 132 H (70 - 100) mg/dL Calcium (8.5-10.3) mg/dL Total Bilirubin (0.2-1.0) mg/dL AST (10-42) IU/L ALT (10-60) IU/L Alkaline Phosphatase (42-121) IU/L Total Protein (6.7-8.2) g/dL Albumin (3.2-5.5) g/dL Globulin (2.1-4.2) g/dL Albumin/Globulin Ratio (1.0-2.2) Assessment/Plan - Problem List (1) Left displaced femoral neck fracture Impression: (1) Left displaced femoral neck fracture, status post of surgery for two days Assessment/Plan: status post of bipolar hip arthroplasty for three days. PT evaluated and treated with pt. pt report she still has pain when she ambulate. Because pt report pain medication [place] make her loopy, pt does not take any [place] on yesterday and today. Today pt is oriented plus 3. Continue PT evaluation and treatment, continue to monitor CBC with daily lab draws. continue Xarelto, check PT/INR. encourage ambulation when tolerated. will need rehab set up and plan for discharge. (2) Afib with Anticoagulant long-term use Assessment/Plan: stable. patient was put back on Xarelto. continue home dosage. continue to monitor for bleeding and monitor CBC with daily lab draws. (3) confusion pt is oriented plus 3 today, continue to hold Ativan, closely monitor. (4) Anemia pt's HGB 10.3 on yesterday, today HGB9.1, MCV 95. check Occult stool. Nurse report pt had small bowel movement, color of stool is dark and brown. check PT/INR now. will see the occult stool result to determine if hold Xarelto. At the same time, pt is three days status post of hip replacement surgery, it is high risk for blood clots. (5) elevated BUN and Creatinine yesterday pt's BUN/creatinine 20/0.9, today 24/1.2, GFR from 60 to 43. add IVF mild to moderate 100cc/h follow check BUN and creatinine hold Motrin
[2017-02-08] MEDS: POTASSIUM CHLORIDE 20 MEQ TABLET PO SCH (09:15)
[2017-02-08] MEDS: diltiaZEM CD 180 MG CAPSULE PO SCH (09:15)
[2017-02-08] MEDS: FUROSEMIDE 40 MG TABLET PO SCH (09:16)
[2017-02-08] MEDS: POLYETHYLENE GLYCOL 3350 17 GM PACKET PO SCH (09:16)
[2017-02-08] MEDS: NYSTATIN CREAM 15 GM TUBE TOP SCH ×2 (09:16→20:35)
[2017-02-08] MEDS: LOSARTAN 50 MG TABLET PO SCH (09:16)
[2017-02-08] MEDS: METOPROLOL SUCCINATE 25 MG TABLET PO SCH (09:16)
[2017-02-08] MEDS: CHOLECALCIFEROL 5,000 UNIT CAPSULE PO SCH ×2 (09:16→20:34)
[2017-02-08] MEDS: TIMOLOL 0.5% OPHTH DROPS EACHEYE SCH ×2 (09:17→20:40)
[2017-02-08 09:18] LABS: PT - PROTHROMBIN TIME 22.8 secs (9.9-12.6)
--- NOTE | 2017-02-08 15:33 | PROVIDER PROGRESS NOTE ---
Subjective - Prog Note Date Prog Note Date: 02/08/17 Prog Note Time: 15:30 - Subjective Pt reports feeling: Improved (Less posterior hip pain. Up ambulating on the fall) Objective - Vital Signs/Intake & Output Vital Signs: Vital Signs x48h Temp Pulse Resp BP Pulse Ox 02/08/17 08:10 36.3 C L 72 18 139/56 H 96 Intake & Output: Intake & Output 02/05/17 02/06/17 02/07/17 02/08/17 23:59 23:59 23:59 23:59 Intake Total 1503 1588 770 600 Output Total 125 2025 2500 600 Balance 1023 -414 -4113 0 - Lab Results Fish Bones: 02/08/17 05:14 02/08/17 05:14 Other Labs: Lab Results x24hrs 02/08/17 02/08/17 02/08/17 Range/Units 09:00 05:14 05:14 WBC 8.2 (4.8-10.8) x10^3/uL RBC 2.85 L (4.20-5.40) 10^6/uL Hgb 9.1 L (12.0-16.0) g/dL Hct 27.1 L (37.0-47.0) % MCV 95.1 (81.0-99.0) fL MCH 31.9 H (27.0-31.0) pg MCHC 33.6 (32.0-36.0) g/dL RDW 17.9 H (12.0-15.0) % Plt Count 140 (130-450) 10^3/uL MPV 9.6 (7.9-10.8) fL Neut # 5.4 (1.5-6.6) 10^3/uL Lymph # 1.4 L (1.5-3.5) 10^3/uL [place] # 1.3 H (0.0-1.0) 10^3/uL Eos # 0.1 (0.0-0.7) 10^3/uL Baso # 0.0 (0.0-0.1) 10^3/uL Absolute Nucleated RBC 0.00 x10^3/uL Nucleated RBCs 0.0 /100WBC PT 22.8 H (9.9-12.6) secs INR 2.0 H (0.8-1.2) Sodium 135 (135-145) mmol/L Potassium 4.0 (3.5-5.0) mmol/L Chloride 99 L (101-111) mmol/L Carbon Dioxide 28 (21-32) mmol/L Anion Gap 8.0 (6-13) BUN 24 H (6-20) mg/dL Creatinine 1.2 H (0.4-1.0) mg/dL Estimated GFR (MDRD) 43 L (>89) Glucose 101 H (70-100) mg/dL Calcium 8.5 (8.5-10.3) mg/dL Total Bilirubin 1.0 (0.2-1.0) mg/dL AST 17 (10-42) IU/L ALT 10 (10-60) IU/L Alkaline Phosphatase 67 (42-121) IU/L Total Protein 5.0 L (6.7-8.2) g/dL Albumin 2.6 L (3.2-5.5) g/dL Globulin 2.4 (2.1-4.2) g/dL Albumin/Globulin Ratio 1.1 (1.0-2.2) - Other Results/Comments Other Results/Comments: EXAM: Mild left posterior hip tenderness. No pain with hip rotation or flexion. N/V ok distally. Dressing intact Assessment/Plan - Problem List (1) Femoral neck fracture Impression: Satis post op. S/P left bipolar hip endoprosthesis - doing well PLAN: Can go to SNF in AM. Continue PT - walker ambulate - WBAT on left. THR precautions. SKin tk/sutures out in 2 weeks. Follow up in Orthopedic clinic with Dr. Melissa in 2-3 weeks. Qualifiers: Encounter type: initial encounter Fracture type: closed Laterality: left Qualified Code(s): S72.002A - Fracture of unspecified part of neck of left femur, initial encounter for closed fracture
[2017-02-08] MEDS: RIVAROXABAN 10 MG TABLET PO SCH (16:32)
[2017-02-08] MEDS: LATANOPROST 0.005% OPHTH DROPS EACHEYE SCH (20:34)
[2017-02-09 00:32] VITALS: BP 152/65
[2017-02-09] MEDS: SODIUM CHLORIDE 0.9% 1,000 ML IV SCH (02:06)
[2017-02-09] MEDS: SODIUM CHLORIDE FLUSH 0.9% 10 ML SYRINGE IVP SCH (03:57)
[2017-02-09] MEDS: PANTOPRAZOLE 40 MG TABLET PO SCH (06:00)
[2017-02-09 06:21] LABS: BASOPHILS % (AUTO) 0.3 %; EOSINOPHILS % (AUTO) 0.5 %; HCT - HEMATOCRIT 29.6 % (37.0-47.0); HGB - HEMOGLOBIN 9.8 g/dL (12.0-16.0); LYMPHOCYTES # (AUTO) 1.3 10^3/uL (1.5-3.5); LYMPHOCYTES % (AUTO) 18.6 %; MEAN CORPUSCULAR HEMOGLOBIN 31.3 pg (27.0-31.0); MEAN PLATELET VOLUME 9.2 fL (7.9-10.8); MONOCYTES # (AUTO) 1.1 10^3/uL (0.0-1.0); MONOCYTES % (AUTO) 16.5 %; NEUTROPHILS # (AUTO) 4.5 10^3/uL (1.5-6.6); NEUTROPHILS % (AUTO) 64.1 %; RED BLOOD COUNT 3.11 10^6/uL (4.20-5.40); RED CELL DISTRIBUTION WIDTH 17.5 % (12.0-15.0)
[2017-02-09 06:34] LABS: ALBUMIN/GLOBULIN RATIO 0.9 (1.0-2.2); BILIRUBIN,TOTAL 1.2 mg/dL (0.2-1.0); CALCIUM 7.7 mg/dL (8.5-10.3); CREATININE 0.8 mg/dL (0.4-1.0); POTASSIUM 3.4 mmol/L (3.5-5.0); TOTAL PROTEIN 5.4 g/dL (6.7-8.2)
[2017-02-09 06:36] LABS: IMMATURE RETIC FRACTION 0.58; RED BLOOD COUNT 3.1 10^6/uL (4.20-5.40)
[2017-02-09 06:38] LABS: IRON 17 ug/dL (28-170); TOTAL IRON BINDING CAPACITY 246 ug/dL (250-450); TRANSFERRIN 176 mg/dL (192-382)
[2017-02-09 06:55] LABS: FERRITIN 64.2 ng/mL (11.0-306.8)
[2017-02-09] MEDS ORDERED: POTASSIUM CHLORIDE 20 MEQ TABLET PO ONE (08:00)
[2017-02-09] MEDS: HYDROcod/ACETAM 5/325 MG TABLET PO PRN (08:29)
[2017-02-09] MEDS ORDERED: FUROSEMIDE 20 MG TABLET PO SCH (09:00)
[2017-02-09] MEDS: POLYETHYLENE GLYCOL 3350 17 GM PACKET PO SCH (09:05)
[2017-02-09] MEDS: NYSTATIN CREAM 15 GM TUBE TOP SCH (09:05)
[2017-02-09] MEDS: diltiaZEM CD 180 MG CAPSULE PO SCH (09:17)
[2017-02-09] MEDS: METOPROLOL SUCCINATE 25 MG TABLET PO SCH (09:17)
[2017-02-09] MEDS: LOSARTAN 50 MG TABLET PO SCH (09:17)
[2017-02-09] MEDS: POTASSIUM CHLORIDE 20 MEQ TABLET PO SCH (09:17)
[2017-02-09] MEDS: CHOLECALCIFEROL 5,000 UNIT CAPSULE PO SCH (09:17)
[2017-02-09] MEDS: TIMOLOL 0.5% OPHTH DROPS EACHEYE SCH (09:18)
--- NOTE | 2017-02-09 10:20 | PROVIDER PROGRESS NOTE ---
Subjective - Prog Note Date Prog Note Date: 02/09/17 Prog Note Time: 10:15 - Subjective Pt reports feeling: Improved (Less hip pain) Objective - Vital Signs/Intake & Output Intake & Output: Intake & Output 02/06/17 02/07/17 02/08/17 02/09/17 23:59 23:59 23:59 23:59 Intake Total 5499 858 7683 824 Output Total 2028 4555 600 Balance -437 -1730 685 824 - Lab Results Fish Bones: 02/09/17 05:47 02/09/17 05:47 Other Labs: Lab Results x24hrs 02/09/17 02/09/17 02/08/17 Range/Units 05:47 05:47 05:47 WBC 7.0 (4.8-10.8) x10^3/uL RBC 3.11 L (4.20-5.40) 10^6/uL Hgb 9.8 L (12.0-16.0) g/dL Hct 29.6 L (37.0-47.0) % MCV 95.0 (81.0-99.0) fL MCH 31.3 H (27.0-31.0) pg MCHC 33.0 (32.0-36.0) g/dL RDW 17.5 H (12.0-15.0) % Plt Count 176 (130-450) 10^3/uL MPV 9.2 (7.9-10.8) fL Reticulocyte % (Auto) (0.5-2.3) % Neut # 4.5 (1.5-6.6) 10^3/uL Lymph # 1.3 L (1.5-3.5) 10^3/uL Butler # 1.1 H (0.0-1.0) 10^3/uL Eos # 0.0 (0.0-0.7) 10^3/uL Baso # 0.0 (0.0-0.1) 10^3/uL Absolute Nucleated RBC 0.00 x10^3/uL Nucleated RBCs 0.0 /100WBC Absolute Retic (0.020-0.110) 10^6/uL Sodium 137 (135-145) mmol/L Potassium 3.4 L (3.5-5.0) mmol/L Chloride 99 L (101-111) mmol/L Carbon Dioxide 29 (21-32) mmol/L Anion Gap 9.0 (6-13) BUN 17 (6-20) mg/dL Creatinine 0.8 (0.4-1.0) mg/dL Estimated GFR (MDRD) 68 L (>89) Glucose 98 (70-100) mg/dL Calcium 7.7 L (8.5-10.3) mg/dL Iron (28-170) ug/dL TIBC (250-450) ug/dL % Saturation (20-50) % Transferrin (192-382) mg/dL Ferritin (11.0-306.8) ng/mL Total Bilirubin 1.2 H (0.2-1.0) mg/dL AST 16 (10-42) IU/L ALT 10 (10-60) IU/L Alkaline Phosphatase 80 (42-121) IU/L Lactate Dehydrogenase 127 (91-225) IU/L Total Protein 5.4 L (6.7-8.2) g/dL Albumin 2.6 L (3.2-5.5) g/dL Globulin 2.8 (2.1-4.2) g/dL Albumin/Globulin Ratio 0.9 L (1.0-2.2) Vitamin B12 (180-914) pg/mL 02/08/17 02/08/17 02/08/17 Range/Units 05:47 05:47 05:47 WBC (4.8-10.8) x10^3/uL RBC 3.10 L (4.20-5.40) 10^6/uL Hgb (12.0-16.0) g/dL Hct (37.0-47.0) % MCV (81.0-99.0) fL MCH (27.0-31.0) pg MCHC (32.0-36.0) g/dL RDW (12.0-15.0) % Plt Count (130-450) 10^3/uL MPV (7.9-10.8) fL Reticulocyte % (Auto) 2.05 (0.5-2.3) % Neut # (1.5-6.6) 10^3/uL Lymph # (1.5-3.5) 10^3/uL Butler # (0.0-1.0) 10^3/uL Eos # (0.0-0.7) 10^3/uL Baso # (0.0-0.1) 10^3/uL Absolute Nucleated RBC x10^3/uL Nucleated RBCs /100WBC Absolute Retic 0.063 (0.020-0.110) 10^6/uL Sodium (135-145) mmol/L Potassium (3.5-5.0) mmol/L Chloride (101-111) mmol/L Carbon Dioxide (21-32) mmol/L Anion Gap (6-13) BUN (6-20) mg/dL Creatinine (0.4-1.0) mg/dL Estimated GFR (MDRD) (>89) Glucose (70-100) mg/dL Calcium (8.5-10.3) mg/dL Iron 17 L (28-170) ug/dL TIBC 246 L (250-450) ug/dL % Saturation 7 L (20-50) % Transferrin 176 L (192-382) mg/dL Ferritin 64.2 (11.0-306.8) ng/mL Total Bilirubin (0.2-1.0) mg/dL AST (10-42) IU/L ALT (10-60) IU/L Alkaline Phosphatase (42-121) IU/L Lactate Dehydrogenase (91-225) IU/L Total Protein (6.7-8.2) g/dL Albumin (3.2-5.5) g/dL Globulin (2.1-4.2) g/dL Albumin/Globulin Ratio (1.0-2.2) Vitamin B12 368 (180-914) pg/mL - Other Results/Comments Other Results/Comments: EXAM: mild posterior hip tenderness. Good hip motion without pain. N/V ok distally. Assessment/Plan - Problem List (1) Femoral neck fracture Impression: Satis post op PLAN: To SNF today. RTC in 2-3 weeks in orthopedic clinic with Dr. Melissa. Continue PT - walker ambulation -WBAT on left. [place]/sutures out in 2 weeks. Qualifiers: Encounter type: initial encounter Fracture type: closed Laterality: left Qualified Code(s): S72.002A - Fracture of unspecified part of neck of left femur, initial encounter for closed fracture
--- NOTE | 2017-02-09 11:32 | DISCHARGE SUMMARY ---
"Discharge Summary Admit Date: 02/04/17 Discharge Date: 02/09/17 Discharging Provider: VILLALOBOS Primary Care Provider: Dr. Kurt Brown Code Status: Do Not Attempt Resuscitation Condition at Discharge: Stable Discharge Disposition: 03 SNF DC/Xfer - DIAGNOSES Admission Diagnoses: (1) Left displaced femoral neck fracture, (2) Afib with Anticoagulant long-term use (3) Enlarged thyroid gland (4) Hypertension Discharge Diagnoses with Status of Each Condition: (1) Left displaced femoral neck fracture, repaired by orth surgeon, continue evaluation at SNF (2) Afib with Anticoagulant long-term use stable, continue with home meds to control (3) Enlarged thyroid gland out patient to do US (4) Hypertension stable, continue home meds (5) confusion resolved (6) Anemia stable, as pt's baseline (7) elevated BUN and Creatinine resolved - HPI History of Present Illness: please refer from Dr. Munoz's HPI on 02/05/17 as the following: Patient is a very pleasant 86-year-old female with a past medical history significant for atrial fibrillation on Xarelto, hypertension, peripheral vascular disease, coronary artery disease, small bowel obstruction in 1999 and a status post repair, GERD, hyperlipidemia and macular degeneration with blindness who presented to the emergency department with a chief complaint of left hip pain. The patient states that she was in her normal state of health when this evening she wore a pair of slippers that her grandson had given to her. She states that the slippers were too big for her but she wore them because she did not want to hurt her grandson's feelings. She states that while she was walking in the she tripped and fell backwards landing on her left hip. She states that she did hit her head but did not lose consciousness. She states her grandson lives nearby and was able to get her up and then into a chair. She states initially with a shock of the fall she did not notice that she was in pain however when she tried to move at all in the chair she noticed that she was having excruciating pain in her left hip and could not move her left leg. At this point she had a discussion with her grandson and finally decided that she needed to come into the hospital. The patient otherwise denies any headaches, runny nose, sore throat, nasal congestion, fevers or chills, cough, shortness of air, chest pain, palpitations , abdominal pain, nausea, vomiting, diarrhea, constipation, muscle aches, recent unintentional weight loss, changes in her appetite or focal neurologic deficits. On presentation to the emergency department the patient was afebrile and her all her vital signs are within normal limits. The patient was noted to be in some mild distress secondary to pain in her left hip. The patient's left leg was noted to be externally rotated and shortened. The patient underwent a CT of her head and neck which did not show any acute bleeds or changes. An x-ray of the patient's left hip revealed a displaced left femoral neck fracture. The patient stated that she took her last dose of Xarelto this evening with her dinner. The emergency room physician contacted Dr. Melissa the orthopedic surgeon transportation equipment painter and he asked that the hospitalist team admit the patient and consult orthopedics for repair of the left hip. - CONSULTS | PROCEDURES Consultations: Orth surgeon Dr. Melissa Procedures: pt had orth surgery on 02/05/[address] Melissa - HOSPITAL COURSE Hospital Course: Pt is admitted for left femoral neck fracture on 02/05/17. Pt had the repair the fracture on 02/05/[address] Melissa. Pt developed confusion status post of surgery. We hold Ativan and [place] at 10/325. Pt became oriented. Then pt developed anemia and elevated creatinine and BUN. After hydration, PT evaluation and treatment, encourage to walk and eat well. Pt's anemia and kidney function return pt's baseline. - ALLERGIES Allergies/Adverse Reactions: Allergies Allergy/AdvReac Type Severity Reaction Status Date / Time streptomycin Allergy Mild Unknown Verified 02/04/17 21:15 ciprofloxacin [From Cipro] Allergy Unknown Unknown Verified 02/04/17 21:15 Penicillins Allergy Unknown Unknown Verified 02/04/17 21:15 Sulfa (Sulfonamide Allergy Unknown Unknown Verified 02/04/17 21:15 Antibiotics) tetanus toxoid, adsorbed Allergy Unknown Verified 02/04/17 21:15 - MEDICATIONS Home Medications: Ambulatory Orders Medication Instructions Recorded Confirmed Losartan [Cozaar] 25 mg PO DAILY 07/16/13 02/04/17 Pravastatin Sodium [Pravachol] 40 mg PO DAILY 07/16/13 02/04/17 Rivaroxaban [Xarelto] 15 mg PO DAILY 07/19/13 02/04/17 Diltiazem HCl [Taztia Xt] 360 mg PO DAILY 12/11/16 02/04/17 Metoprolol Succinate [Toprol Xl] 25 mg PO DAILY 12/11/16 02/04/17 Omeprazole 20 mg PO DAILY 12/11/16 02/04/17 Albuterol Sulfate [Proair Hfa 2 puffs INH Q6H PRN 12/12/16 02/05/17 Inhaler] Famotidine [Pepcid] 20 mg PO BID 12/12/16 02/04/17 Furosemide 20 mg PO DAILY 12/12/16 02/04/17 Latanoprost 0.005% Ophth Drops 1 drops EACHEYE QPM 12/12/16 02/04/17 [Xalatan Ophth Drops] Timolol 0.5% Ophth Drops [Timoptic 1 drops EACHEYE BID 12/12/16 02/04/17 0.5% Ophth Drops] Nystatin Cream [Mycostatin Cream] 1 applic TOP BID tube 12/13/16 02/04/17 Potassium Chloride [K-Dur] 20 meq PO DAILYWM tablet 12/13/16 02/04/17 - PHYSICAL EXAM AT DISCHARGE General Appearance: positive: No acute distress, Alert. negative: Lethargic Eyes Bilateral: positive: Normal inspection, PERRL. negative: No lid inflammation, Conjunctivae nml ENT: positive: ENT inspection nml, Pharynx nml. negative: Purulent nasal drainage, Pharyngeal erythema Neck: positive: Nml inspection, Trachea midline, Thyromegaly. negative: Lymphadenopathy (R), Lymphadenopathy (L), Stiff neck, Swelling/bruising, Tracheal deviation Respiratory: positive: Chest non-tender, No respiratory distress, Breath sounds nml. negative: Wheezes, Rales, Rhonchi Cardiovascular: positive: Regular rate & rhythm, No murmur, No gallop. negative : Tachycardia, Bradycardia, Systolic murmur, Diastolic murmur Peripheral Pulses: positive: 2+ Abdomen: positive: Non-tender, Nml bowel sounds, No distention. negative: Tenderness, Guarding, Rebound Back: positive: Nml inspection. negative: CVA tenderness (R), CVA tenderness (L ) Skin: positive: Color nml, No rash, Warm. negative: Diaphoresis, Skin rash Extremities: positive: Non-tender, Full ROM, Nml appearance. negative: Calf tenderness, Daquan's sign/cords Neurologic/Psychiatric: positive: Oriented x3, Sensation nml, Mood/affect nml. negative: Sensory loss, Facial droop, Slurred/abnml speech, Depressed mood/ affect - LABS Result Diagrams: 02/09/17 05:47 02/09/17 05:47 - FOLLOW UP Follow Up: may see PCP in one week Continue PT - walker ambulate - WBAT on left. THR precautions. SKin tk/ sutures out in 2 weeks. Follow up in Orthopedic clinic with Dr. Melissa in 2-3 weeks. out-patient US to monitor enlarged thyroid in two weeks - TIME SPENT Time Spent in Discharge (Minutes): 50"
[2017-02-09] MEDS ORDERED: IBUPROFEN 600 MG TABLET PO ONE (11:45)
--- NOTE | 2017-02-23 13:26 | CONSULTATION NOTE ---
Referring Provider Name of Referring Provider:: Bhanu Munoz MD Consult Date: 02/05/17 Chief Complaint - Chief Complaint Chief Complaint: Left hip pain after a ground-level fall. History of Present Illness - Admitted From Admitted From:: Emergency department. - History Obtained From Records Reviewed: ED, hospitalist H&P. History obtained from: Patient and family. - History of Present Illness HPI Comment/Other: This is an 86-year-old female who sustained an injury to her left hip in a ground-level fall. She was brought to the emergency department by EMS where radiographic evaluation revealed a Garden 4 femoral neck fracture of the left femoral neck. She was admitted to the medicine service and orthopedic surgery was consulted. After discussion of the patient's injury with her and her family, was elected to bring her to the operating room for a hemiarthroplasty of the left hip. Because of her age and medical condition we elected to perform a cemented left hip hemiarthroplasty. History - Past Medical History Cardiovascular: reports: Hypertension, Coronary artery disease, Peripheral Vascular Disease, Atrial fibrillation, Other Respiratory: reports: None Neuro: reports: None Endocrine/Autoimmune: reports: None GI: reports: GERD, Other : reports: Other HEENT: reports: Glaucoma Psych: reports: None Musculoskeletal: reports: None Derm: reports: None MRSA Hx?: No Other Past Medical History: 1. Hypertension. 2. Atrial fibrillation on Xarelto. 3. peripheral vascular disease right iliac thrombosis in 2012. 4. Coronary artery disease. 5. History of small bowel obstruction in 2007 status post surgical repair. 6. GERD. 7. Glaucoma. 8. Hyperlipidemia. 9. Macular degeneration. 10. 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 - Family & Social History Family History: Mother: (mom of liver cirrhosis from hep B), Father: , CAD, COPD/Emphysema Living arrangement: At home Living Situation: With family (grandsons) Social History Notes: The patient lives in [place]. She lives with her grandsons. Her in 2001 and she is . Her kids live in the [facility] area and come to visit quite often. Patient occasionally drinks alcohol, she does not use any illicit drugs. She smoked for 15 years a pack a day but quit in 1985. - POLST Patient has POLST: No POLST Status: DNR Meds/Allgy - Home Medications Home Medications: Ambulatory Orders Medication Instructions Recorded Confirmed Losartan [Cozaar] 25 mg PO DAILY 07/16/13 02/04/17 Pravastatin Sodium [Pravachol] 40 mg PO DAILY 07/16/13 02/04/17 Rivaroxaban [Xarelto] 15 mg PO DAILY 07/19/13 02/04/17 Diltiazem HCl [Taztia Xt] 360 mg PO DAILY 12/11/16 02/04/17 Metoprolol Succinate [Toprol Xl] 25 mg PO DAILY 12/11/16 02/04/17 Omeprazole 20 mg PO DAILY 12/11/16 02/04/17 Albuterol Sulfate [Proair Hfa 2 puffs INH Q6H PRN 12/12/16 02/05/17 Inhaler] Famotidine [Pepcid] 20 mg PO BID 12/12/16 02/04/17 Furosemide 20 mg PO DAILY 12/12/16 02/04/17 Latanoprost 0.005% Ophth Drops 1 drops EACHEYE QPM 12/12/16 02/04/17 [Xalatan Ophth Drops] Timolol 0.5% Ophth Drops [Timoptic 1 drops EACHEYE BID 12/12/16 02/04/17 0.5% Ophth Drops] Nystatin Cream [Mycostatin Cream] 1 applic TOP BID tube 12/13/16 02/04/17 Potassium Chloride [K-Dur] 20 meq PO DAILYWM tablet 12/13/16 02/04/17 - Allergies Allergies/Adverse Reactions: Allergies Allergy/AdvReac Type Severity Reaction Status Date / Time streptomycin Allergy Mild Unknown Verified 02/04/17 21:15 ciprofloxacin [From Cipro] Allergy Unknown Unknown Verified 02/04/17 21:15 Penicillins Allergy Unknown Unknown Verified 02/04/17 21:15 Sulfa (Sulfonamide Allergy Unknown Unknown Verified 02/04/17 21:15 Antibiotics) tetanus toxoid, adsorbed Allergy Unknown Verified 02/04/17 21:15 Review of Systems - All Other Systems All Other Systems: reports: Reviewed and negative Exam - Vital Signs Reviewed Vital Signs: Yes - Physical Exam General Appearance: positive: Alert, Mild distress Eyes Bilateral: positive: Normal inspection ENT: positive: ENT inspection nml Neck: positive: Nml inspection Respiratory: positive: No respiratory distress, Breath sounds nml Cardiovascular: positive: Regular rate & rhythm Peripheral Pulses: positive: 2+ Abdomen: positive: Non-tender, Nml bowel sounds, No distention. negative: Guarding Back: positive: Nml inspection Skin: positive: Color nml, No rash, Warm, Dry Extremities: positive: Non-tender, Other (Except for left hip, with tenderness to any attempts at manipulation. Left lower extremity is not significantly shortened or externally rotated.) Neurologic/Psychiatric: positive: Motor nml, Sensation nml, Disoriented to place , Disoriented to time Conclusion/Plan - Diagnosis Diagnosis: 1. Left hip Garden 4 femoral neck fracture. 2. Ground-level fall. - Plan Plan: Patient is to be taken to the operating room today or tomorrow for a left hip cemented hemiarthroplasty. - Lab Results Lab results reviewed: Yes Fish Bones: 02/09/17 05:47 02/09/17 05:47 - Diagnostic Imaging Results Diagnostic Imaging Results: positive: Read contemporaneously (Left hip Garden 4 femoral neck fracture. Minimal osteoarthritic changes to the left hip joint.)
--- NOTE | 2017-02-23 15:02 | OPERATIVE REPORT ---
DATE OF SURGERY: 02/05/2017 00:00:00 PREOPERATIVE DIAGNOSIS: Left Garden IV femoral neck fracture. POSTOPERATIVE DIAGNOSIS: Left Garden IV femoral neck fracture. NAME OF PROCEDURE: Left hip bipolar hemiarthroplasty. SURGEON: Elliot Melissa MD ANESTHESIA: Marybel Marie CRNA. Anesthesia technique was general endotracheal and local. PATHOLOGY: Left Garden IV femoral neck fracture. IV FLUIDS: 2000 mL of lactated Ringer's. BLOOD LOSS: 200 mL. URINE OUTPUT 200 mL. COMPLICATIONS: None. CONDITION AT END OF PROCEDURE: Stable. DISPOSITION: PACU then Med/Surg. MATERIAL TO LAB: None. IMPLANTS 1. Horace Biomet Echo cemented stem, size #7. 2. Bipolar head with 44 mm outer diameter. 3. Palacos cement with gentamicin. INDICATIONS: This is an 86-year-old female with a long list of medical problems who sustained a Garde n IV femoral neck fracture of her left hip in a ground level fall. Evaluation of her overall medical status was completed by the hospitalist, and she was deemed ready for surgery. Discussion of her cond ition with the patient and her family was undertaken. We agreed to bring her to the operating room fo r a left hip hemiarthroplasty. PROCEDURE IN DETAIL: After consent and identification, the patient was brought to the operating room and placed in a supine position on the operating table. After induction of a general endotracheal ane sthesia and appropriate monitoring, the patient was placed in a right lateral decubitus position on t he operating table on a PEG board. Well-padded posts were placed over the right ischium, the pubic sy mphysis, the sacrum and the chest. An axillary roll was placed in the right axilla. The right peronea l nerve was protected with a Gelfoam pad. The left lower extremity was then prepped and draped in the usual sterile fashion for [facility]. After an appropriate timeout was conducted, we flexed the hip to a 45 degree position and mapped out a straight incision paralleling the lateral border of the femur extending proximally from the greater trochanter towards the posterior left buttocks. The incision extended approximately 10 cm above and 10 cm below the tip of the greater trochanter. Skin and subcutaneous tissue were divided down the lev el of the iliotibial band. The iliotibial band was divided, and we made a standard anterolateral appr oach to the left hip joint. The digastric muscular sleeve was divided, including the anterior 1/3 of the gluteus medius musculature, as well as the anterior portion of the vastus lateralis, subperiostea lly over the greater trochanter with electrocautery and reflected and tagged forward. Standard -[facility] ed capsulotomy was used to expose the hip joint. The femoral neck fracture was identified, and a cork screw was inserted into the femoral neck into the head. The head was then removed the acetabulum. We inspected the acetabulum and noted that the acetabular cartilage appeared to be suitable. We cleared out the acetabulum with a rongeur and controlled bleeding in the fovea with electrocautery. The aceta bulum was then irrigated and protected with a saline-soaked lap sponge. With the hip in an externally rotated position to 90 degrees and flexed 45 degrees, the left leg was hung off the opposite side of the table and protected in the bag from the hip drape. We used a ferry pilot reamer followed by a rina c utter and lateralizing reamer to locate and sound the femoral canal. We then reamed the femoral canal followed by broaching up to a size 8 femoral stem. We had elected to cement the femoral stem because of the patient's age and bone quality. With the broach in place, we trialed after measuring the femo ral head diameter at 44 mm. We reduced the trial components and noted good stability in all planes, a s well as an acceptable shuck test. We mixed a double batch of Palacos cement on the back table and p laced it in the cement gun. We placed a cement constrictors down the femoral canal approximately 2 cm beyond the tip of the femoral stem. We then injected the cement under pressure into the femoral oren l constricting the cement of the proximal end of the canal. We then inserted the size 7 Echo cemented stem into the femoral canal with approximately 15 mm of anteversion. Careful debridement of the ceme nt was carried out. When the cement had completely hardened, we assembled the bipolar hemiarthroplast y components with a 44 mm outer diameter head on the back table and inserted the bipolar head onto th e trunnion impacting it in place. We then reduced the hip. The hip was then irrigated thoroughly and sequentially closed after inspecti ng one more time for any cement debris. The capsule was approximated using a #5 running interlocked E thibond suture. The digastric muscular flap was reattached to the greater trochanter through drill ho les in the anterior superior portion of the greater trochanter with #2 FiberWire suture and oversewn with a #2 FiberWire suture to complete the fascial repair. The IT band was closed with a running inte rlocked #1 Vicryl suture. Interrupted 2-0 Vicryl subcuticular sutures were then applied to the subcut icular layer followed by a running 3-0 Monocryl suture to the dermis. We injected 20 mL of 0.5% Morena ine with epinephrine into the wound. We then applied a sterile Mepilex silver dressing, covering the entire length of the wound. On completion of the procedure, the patient was extubated and transferred to the recovery room in goo d condition having tolerated the procedure well. JOB #: [id number] EXT JOB #:[id number]
== END 2017-02-09 13:45 | DRG 470 ==
LOC: EDUNIT# → ED 21:08 → MS2 23:20
PROVIDERS: ADMIT Internal Medicine; ATTEND Nurse Practitioner Gerontology
PROC: 0SRS019 Replacement of Left Hip Joint, Femoral Surface with Metal Synthetic Substitute, Cemented, Open Approach (ICD-10-PCS; principal; 2017-02-05 12:00)
DX: S72.002A Fracture of unspecified part of neck of left femur, initial encounter for closed fracture (principal); W01.0XXA Fall on same level from slipping, tripping and stumbling without subsequent striking against object, initial encounter; W01.10XA Fall on same level from slipping, tripping and stumbling with subsequent striking against unspecified object, initial encounter; M54.2 Cervicalgia; Y92.009 Unspecified place in unspecified non-institutional (private) residence as the place of occurrence of the external cause; R41.0 Disorientation, unspecified; T40.2X5A Adverse effect of other opioids, initial encounter; Y92.230 Patient room in hospital as the place of occurrence of the external cause; I48.91 Unspecified atrial fibrillation; D50.9 Iron deficiency anemia, unspecified; D63.8 Anemia in other chronic diseases classified elsewhere; E86.0 Dehydration; E83.42 Hypomagnesemia; M25.462 Effusion, left knee; I10 Essential (primary) hypertension; I48.2 Chronic atrial fibrillation; E04.9 Nontoxic goiter, unspecified; I25.10 Atherosclerotic heart disease of native coronary artery without angina pectoris; K21.9 Gastro-esophageal reflux disease without esophagitis; E78.5 Hyperlipidemia, unspecified; H40.9 Unspecified glaucoma; H35.30 Unspecified macular degeneration; I73.00 Raynaud's syndrome without gangrene; Z66 Do not resuscitate; Z79.01 Long term (current) use of anticoagulants; Z86.718 Personal history of other venous thrombosis and embolism; Z87.19 Personal history of other diseases of the digestive system; Z87.891 Personal history of nicotine dependence
CPT/HCPCS: 36415; 70450; 71010; 72125; 80053; 82140; 82270; 82607; 82728; 83540; 83615; 83690; 83735; 83880; 84100; 84436; 84443; 84466; 84481; 84482; 85025; 85044; 85610; 86850; 86900; 86901; 86920; 93005; 96374; 96376; 99284; 99285

== ENCOUNTER 2017-02-21 23:10 | Outpatient (CLI) | payer MEDICARE, OTHER ==
[2017-02-21 23:43] LABS: BILIRUBIN,URINE NEGATIVE (NEGATIVE); PH,URINE 5.5 PH (5.0-7.5)
[2017-02-22 00:07] LABS: UA w/ MICROSCOPIC CHARGE YES
[2017-02-22 00:08] LABS: UR CULTURE IF IND INDICATED; WBC,URINE >25 /HPF (0-5)
== END 2017-02-21 23:11 | disposition home or self-care (01) ==
LOC: LAB.R 23:10
DX: N39.0 Urinary tract infection, site not specified (principal)
CPT/HCPCS: 81001; 81003; 87086

== ENCOUNTER 2017-03-07 11:08 | Outpatient (CLI) | payer MEDICARE, OTHER | END 2017-03-07 11:09 | disposition home or self-care (01) | LOC: LAB.R 11:08 | PROVIDERS: ATTEND Internal Medicine | DX: I48.91 Unspecified atrial fibrillation (principal) | CPT/HCPCS: 84443 ==

== ENCOUNTER 2017-03-13 17:28 | Outpatient (CLI) | payer MEDICARE, OTHER ==
--- NOTE | 2017-03-14 10:03 | Ultrasound Report ---
THYROID ULTRASOUND: 03/13/2017 CLINICAL INDICATION: Thyromegaly. TECHNIQUE: Real-time scanning was performed with technology sales representative static images obtained. FINDINGS: The right lobe measures 3.9 x 1.9 x 1.2 cm, and the left lobe measures 6.3 x 3.6 x 2.6 cm. Multiple cystic and spongiform nodules are present bilaterally. In the lower pole of the left lobe, there is a 3.9 x 2.6 x 3.6 cm lobulated predominantly hyperechoic nodule. No adenopathy is seen. IMPRESSION: A 3.9 CM LOBULAR HYPERECHOIC NODULE IN THE LOWER POLE OF THE LEFT LOBE OF THE THYROID. C ONSIDER FINE NEEDLE ASPIRATION BY TARA CRITERIA. JOB #: [id number] EXT JOB #:[id number]
== END 2017-03-13 17:29 | disposition home or self-care (01) ==
LOC: DI 17:28
PROVIDERS: ATTEND Internal Medicine
DX: E04.2 Nontoxic multinodular goiter (principal)
CPT/HCPCS: 76536

== ENCOUNTER 2017-05-22 08:00 | Outpatient (CLI) | payer OTHER ==
[2017-05-23 10:39] LABS: CLARITY,URINE CLEAR (CLEAR); LEUKOCYTE ESTERASE, URINE SMALL (NEGATIVE); NITRITE,URINE NEGATIVE (NEGATIVE); PROTEIN,URINE NEGATIVE (NEGATIVE); UROBILINOGEN,URINE 0.2 (NORMAL) E.U./dL (NORMAL)
[2017-05-23 10:40] LABS: BACTERIA,URINE Moderate /HPF (None Seen); BILIRUBIN,URINE NEGATIVE (NEGATIVE); GLUCOSE, URINE (UA) NEGATIVE (NEGATIVE); KETONES,URINE (UA) NEGATIVE (NEGATIVE); OCCULT BLOOD,URINE NEGATIVE (NEGATIVE); RBC,URINE 0-5 /HPF (0-5); SQUAMOUS EPITHELIAL CELL,UR FEW Squamous (<= Few)
== END 2017-05-22 23:59 | disposition home or self-care (01) ==
LOC: LAB.WCP 08:00
PROVIDERS: ATTEND Internal Medicine
DX: R30.0 Dysuria (principal)
CPT/HCPCS: 81001; 87086

== ENCOUNTER 2017-07-18 12:53 | Outpatient (CLI) | payer MEDICARE, OTHER ==
[2017-07-18 17:43] LABS: MEAN CORPUSCULAR HEMOGLOBIN 31.5 pg (27.0-31.0); MEAN CORPUSCULAR HGB CONC 32.7 g/dL (32.0-36.0); MEAN CORPUSCULAR VOLUME 96.3 fL (81.0-99.0); MEAN PLATELET VOLUME 10.3 fL (7.9-10.8); RED BLOOD COUNT 4.43 10^6/uL (4.20-5.40); RED CELL DISTRIBUTION WIDTH 15.4 % (12.0-15.0); WHITE BLOOD COUNT 7.1 x10^3/uL (4.8-10.8)
[2017-07-18 18:16] LABS: CREATININE 1.5 mg/dL (0.4-1.0)
== END 2017-07-18 12:54 | disposition home or self-care (01) ==
LOC: LAB.F 12:53
PROVIDERS: ATTEND Internal Medicine Cardiovascular Disease
DX: I10 Essential (primary) hypertension (principal); I48.91 Unspecified atrial fibrillation
CPT/HCPCS: 36415; 80048; 85025

== ENCOUNTER 2018-05-14 16:39 | Outpatient (CLI) | payer MEDICARE, OTHER ==
--- NOTE | 2018-05-14 18:06 | XRAY Report ---
Reason: COUGH Procedure Date: 05/14/2018 Accession Number: [id number] / [id number] Procedure: XR - Chest 2 View X-Ray CPT Code: 71858 FULL RESULT: EXAM: CHEST RADIOGRAPHY EXAM DATE: 05/14/2018 05:37 PM. CLINICAL HISTORY: COUGH. COMPARISON: CHEST 1 VIEW 02/04/2017 10:36 PM. TECHNIQUE: 2 views. FINDINGS: Lungs/Pleura: No focal opacities evident. No pleural effusion. No pneumothorax. Normal volumes. Mediastinum: There is mild cardiomegaly. There is thoracic aortic calcification. Other: None. IMPRESSION: No acute intrathoracic plain film abnormality. RADIA
== END 2018-05-14 16:40 | disposition home or self-care (01) ==
LOC: DI 16:39
PROVIDERS: ATTEND Internal Medicine
DX: R05 Cough (principal)
CPT/HCPCS: 71046

== ENCOUNTER 2018-05-25 14:37 | Outpatient (CLI) | payer MEDICARE, OTHER ==
--- NOTE | 2018-05-26 12:06 | XRAY Report ---
Reason: HIP JOINT RT,FOOT RIGHT PAIN Procedure Date: 05/25/2018 Accession Number: [id number] / [id number] Procedure: XR - Hip w/Pelvis 2-3V RT CPT Code: FULL RESULT: EXAM: RIGHT HIP AND PELVIS RADIOGRAPHY EXAM DATE: 05/25/2018 03:13 PM. HISTORY: Hip joint right, foot right pain. COMPARISONS: HIP 2 VIEW LT 03/06/2017 2:21 PM. TECHNIQUE: 1 view of the pelvis and 1 view of the hip. FINDINGS: Bones: Compared to 2017 there is increased interruption of the trabecular markings at the femoral head/neck junction without direct visualization of definite fracture on the AP view. This is not confirmed on the frog leg view which is limited by overlying vascular calcifications. Joints: Status post left total hip arthroplasty. Soft Tissues: Right iliac artery stent is identified. IMPRESSION: No definite fracture is identified. Questionable interruption of trabecular markings. Initial further evaluation could be performed by noncontrast CT of the pelvis. If inconclusive, bone scan or MRI could be pursued. RADIA
--- NOTE | 2018-05-26 12:20 | XRAY Report ---
Reason: HIP JOINT RT,FOOT RIGHT PAIN Procedure Date: 05/25/2018 Accession Number: [id number] / [id number] Procedure: XR - Ankle 3 View RT CPT Code: FULL RESULT: EXAM: RIGHT ANKLE RADIOGRAPHY EXAM DATE: 05/25/2018 03:13 PM. CLINICAL HISTORY: Hip joint right, foot right pain. COMPARISON: ANKLE 3 VIEW LT 01/27/2015 10:15 AM. TECHNIQUE: 3 views. FINDINGS: Bones: There is subjectively global osteopenia with no definitely acute fracture identified. Irregularity about the distal fibula head is felt to more likely represent a remote fracture. Joints: Degenerative changes are identified along the lateral and medial ankle mortise, which remains symmetric. Soft Tissues: Marked vascular calcifications and soft tissue swelling in the ankle region. IMPRESSION: Osteopenia and posttraumatic degenerative changes limiting evaluation. Preserved ankle mortise with no definite fracture/dislocation identified. RADIA
--- NOTE | 2018-05-26 12:20 | XRAY Report ---
Reason: HIP JOINT RT,FOOT RIGHT PAIN Procedure Date: 05/25/2018 Accession Number: [id number] / [id number] Procedure: XR - Foot 3 View RT CPT Code: FULL RESULT: EXAM: RIGHT FOOT RADIOGRAPHY EXAM DATE: 05/25/2018 03:13 PM. CLINICAL HISTORY: Fall. Right foot pain. COMPARISON: None. TECHNIQUE: 3 views. FINDINGS: Bones: Bones are qualitatively osteopenic. No acute fracture or dislocation is seen. Joints: Degenerative changes predominate in the distal interphalangeal joints. Less pronounced degenerative changes also seen in the midfoot. Soft Tissues: Vascular calcifications are noted. IMPRESSION: Global osteopenia with no acute fracture or dislocation identified. RADIA
== END 2018-05-25 14:38 | disposition home or self-care (01) ==
LOC: DI 14:37
PROVIDERS: ATTEND Internal Medicine
DX: M85.871 Other specified disorders of bone density and structure, right ankle and foot (principal); M19.071 Primary osteoarthritis, right ankle and foot; M19.171 Post-traumatic osteoarthritis, right ankle and foot; T14.90XS Injury, unspecified, sequela; Z96.642 Presence of left artificial hip joint

== ENCOUNTER 2018-05-26 23:36 | Emergency (ER) | payer MEDICARE, OTHER ==
[2018-05-26 23:47] VITALS: BP 125/56
--- NOTE | 2018-05-27 00:02 | ED Physician Documentation ---
PD HPI HEAD INJURY - Stated complaint Stated Complaint: GLF/HEAD - Chief complaint Chief Complaint: Trauma Hd/Nk - History obtained from History obtained from: Patient, Family - History of Present Illness Mechanism of head injury: Fell (backwards and struck head on rug) Where head injury occurred: Home Timing - onset: How many hours ago (4) Pain level max: 1 Pain level now: 1 Location of injury: Back Quality of pain: Aching, Dull Associated symptoms: Neck pain (upper neck pain). No: LOC, AMS, Amnesia, Nausea / vomiting, Paresthesias, Seizures, Ear drainage, Nasal drainage Symptoms improve with: Rest Symptoms worsen with: Palpation, Movement Contributing factors: Anticoagulated (xarelto) Recently seen: Not recently seen Review of Systems Ten Systems: 10 systems reviewed and negative Constitutional: denies: Fever, Chills Eyes: denies: Photophobia Ears: denies: Ear pain Cardiac: denies: Chest pain / pressure Respiratory: denies: Cough GI: denies: Nausea, Vomiting Skin: denies: Rash Musculoskeletal: denies: Back pain Neurologic: denies: Focal weakness, Numbness PD PAST MEDICAL HISTORY - Past Medical History Cardiovascular: Hypertension, Coronary artery disease, Peripheral Vascular D isease, Atrial fibrillation, Other Respiratory: None Endocrine/Autoimmune: None GI: GERD, Other : Other HEENT: Glaucoma Psych: None Musculoskeletal: None Derm: None - Past Surgical History Past Surgical History: Yes General: Cholecystectomy, 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, Oophrectomy Cardiovascular: Other HEENT: Cataracts, Tonsil/Adenoidectomy - Present Medications Home Medications: Ambulatory Orders Medication Instructions Recorded Confirmed Losartan [Cozaar] 25 mg PO DAILY 07/16/13 02/04/17 Pravastatin Sodium [Pravachol] 40 mg PO DAILY 07/16/13 02/04/17 Rivaroxaban [Xarelto] 15 mg PO DAILY 07/19/13 02/04/17 Diltiazem HCl [Taztia Xt] 360 mg PO DAILY 12/11/16 02/04/17 Metoprolol Succinate [Toprol Xl] 25 mg PO DAILY 12/11/16 02/04/17 Omeprazole 20 mg PO DAILY 12/11/16 02/04/17 Albuterol Sulfate [Proair Hfa 2 puffs INH Q6H PRN 12/12/16 02/05/17 Inhaler] Famotidine [Pepcid] 20 mg PO BID 12/12/16 02/04/17 Furosemide 20 mg PO DAILY 12/12/16 02/04/17 Latanoprost 0.005% Ophth Drops 1 drops EACHEYE QPM 12/12/16 02/04/17 [Xalatan Ophth Drops] Timolol 0.5% Ophth Drops [Timoptic 1 drops EACHEYE BID 12/12/16 02/04/17 0.5% Ophth Drops] Nystatin Cream [Mycostatin Cream] 1 applic TOP BID tube 12/13/16 02/04/17 Potassium Chloride [K-Dur] 20 meq PO DAILYWM tablet 12/13/16 02/04/17 - Allergies Allergies/Adverse Reactions: Allergies Allergy/AdvReac Type Severity Reaction Status Date / Time streptomycin Allergy Mild Unknown Verified 05/26/18 23:47 ciprofloxacin [From Cipro] Allergy Unknown Unknown Verified 05/26/18 23:47 Penicillins Allergy Unknown Unknown Verified 05/26/18 23:47 Sulfa (Sulfonamide Allergy Unknown Unknown Verified 05/26/18 23:47 Antibiotics) tetanus toxoid, adsorbed Allergy Unknown Verified 05/26/18 23:47 - Social History Does the pt smoke?: No Smoking Status: Never smoker Does the pt drink ETOH?: No Does the pt have substance abuse?: No - Immunizations Immunizations are current?: Yes - POLST Patient has POLST: No POLST Status: DNR PD ED PE NORMAL - Vitals Vital signs reviewed: Yes - General General: Alert and oriented X 3, No acute distress, Well developed/nourished - HEENT HEENT: PERRL, EOMI, Ears normal, Moist mucous membranes, Other (Occipital hematoma. 2 x 2 cm. No bleeding or laceration) - Neck Neck: Supple, no meningeal sign, Other (Upper C-spine tenderness to palpation in the midline. No step-off or deformity) - Cardiac Cardiac: RRR, Strong equal pulses - Respiratory Respiratory: No respiratory distress, Clear bilaterally - Abdomen Abdomen: Soft, Non tender, Non distended - Derm Derm: Warm and dry - Extremities Extremities: No deformity, No tenderness to palpate, Normal ROM s pain - Neuro Neuro: Alert and oriented X 3, care center manager 2-12 intact, No motor deficit, No sensory deficit Eye Opening: Spontaneous Motor: Obeys Commands Verbal: Oriented GCS Score: 15 - Psych Psych: Normal mood, Normal affect Results - Vitals Vitals: Vital Signs - 24 hr 05/26/18 23:43 Temperature 36.2 C L Heart Rate 52 L Respiratory 18 Rate Blood Pressure 125/56 L O2 Saturation 100 Oxygen O2 Source Room air - Rads (name of study) Head CT Radiology: Prelim report reviewed, EMP read contemporaneously, See rad report (No acute abnormality) Cervical spine CT Radiology: Prelim report reviewed, EMP read contemporaneously, See rad report (No acute abnormality) PD MEDICAL DECISION MAKING - ED course Complexity details: reviewed results, re-evaluated patient, considered differential, d/w patient, d/w family ED course: 88-year-old female who presents to the emergency department after a ground-level fall today. She is on xarelto. Has an occipital hematoma as well as mild cervical spine tenderness. Head and cervical spine CT are both negative for acute abnormalities. We will have her follow-up with her doctor for further care. No focal neurological deficits. No altered mental status. No vomiting. Patient and family counseled regarding signs and symptoms for which I believe and urgent re-evaluation would be necessary. Patient with good understanding of and agreement to plan and is comfortable going home at this time This document was made in part using voice recognition software. While efforts are made to proofread this document, sound alike and grammatical errors may occur. Departure - Departure Disposition: 01 Home, Self Care Clinical Impression: Anticoagulant long-term use Head injury Qualifiers: Encounter type: initial encounter Qualified Code(s): S09.90XA - Unspecified injury of head, initial encounter Scalp hematoma Qualifiers: Encounter type: initial encounter Qualified Code(s): S00.03XA - Contusion of scalp, initial encounter Condition: Good Instructions: ED Head Injury Closed, ED Hematoma Follow-Up: Kurt Brown MD [Primary Care Provider] - As Needed Comments: Your head CT and cervical spine CT are both negative today. Return if you worsen, especially for worsening pain, headaches, changes in mental status or vomiting.
--- NOTE | 2018-05-27 00:30 | CT Report ---
Reason: fall, head injury, pt on xarelto Procedure Date: 05/27/2018 Accession Number: [id number] / [id number] Procedure: CT - Head W/O CPT Code: FULL RESULT: EXAM: CT HEAD EXAM DATE: 05/27/2018 12:17 AM. CLINICAL HISTORY: Fall, head injury, pt on xarelto. COMPARISON: HEAD W/O 02/04/2017 9:43 PM. TECHNIQUE: Multiaxial CT images were obtained from the foramen magnum to the vertex. Reformats: Sagittal and coronal. IV contrast: None. In accordance with CT protocol optimization, one or more of the following dose reduction techniques were utilized for this exam: automated exposure control, adjustment of mA and/or KV based on patient size, or use of iterative reconstructive technique. FINDINGS: Parenchyma: No intraparenchymal hemorrhage. No evidence of mass, midline shift, or CT findings of infarction. Haider-white differentiation is distinct. There is mild to moderate chronic microvascular change in the cerebral white matter bilaterally. This appears stable. Extraaxial Spaces: Normal for age. No subdural or epidural collections identified. Ventricles: Normal in size and position. Sinuses and Orbits: There is mucosal thickening and a fluid level in the left maxillary sinus suggesting sinusitis. There is mild mucosal thickening in the inferior right maxillary sinus. Sinuses and mastoid air cells are otherwise clear. Bones: No evidence of fracture or calvarial defect. Other: None. IMPRESSION: 1. No acute intracranial abnormality. 2. Age-related senescent changes appear stable compared to 02/04/2017. 3. Mucosal thickening and a fluid level in the left maxillary sinus suggesting sinusitis is new compared to the prior CT. RAD[facility]
--- NOTE | 2018-05-27 00:44 | CT Report ---
Reason: fall, neck injury, pt on xarelto Procedure Date: 05/27/2018 Accession Number: [id number] / [id number] Procedure: CT - Cervical Spine W/O CPT Code: FULL RESULT: EXAM: CT CERVICAL SPINE WITHOUT CONTRAST DATE: 05/27/2018 12:17 AM. HISTORY: Fall, neck injury, pt on xarelto. COMPARISONS: CERVICAL SPINE W/O 02/04/2017 9:45 PM. TECHNIQUE: Thin-section axial images were acquired of the cervical spine without contrast. Post-processing: Coronal and sagittal reformats. Other: None. In accordance with CT protocol optimization, one or more of the following dose reduction techniques were utilized for this exam: automated exposure control, adjustment of mA and/or KV based on patient size, or use of iterative reconstructive technique. FINDINGS: Alignment: There is a 3 mm degenerative anterolisthesis at C2-C3 and C3-C4. There is a 4 mm retrolisthesis at C4-C5. Alignment is otherwise maintained. The findings appear unchanged compared to 02/04/2017. There is no acute subluxation. Bones: No fracture or bone lesion. Interspace Levels/Facets: There is moderate to severe multilevel cervical spondylosis and degenerative disk disease. There is moderate to severe disk narrowing at all levels from C3-C4 through C6-C7. Posterior osseous ridging and disk bulging results in at least mild central canal narrowing at C3-C4, C4-C5, and C5-C6. There is also multilevel bilateral foraminal stenosis due to uncovertebral and facet hypertrophy. These findings have not changed significantly compared to 02/04/2017. Musculature: Unremarkable. Other: The paravertebral and prevertebral soft tissues are unremarkable. The lung apices are clear. A partially calcified nodule in the lower pole of the left thyroid lobe extending into the thoracic inlet appears unchanged. IMPRESSION: 1. No acute osseous abnormality of cervical spine. No evidence of fracture or acute subluxation. 2. Moderate to severe multilevel cervical spondylosis and degenerative disk disease appears stable compared to 02/04/2017. RAD[facility]
== END 2018-05-27 00:53 | disposition home or self-care (01) ==
LOC: ED 23:36
DX: S09.90XA Unspecified injury of head, initial encounter (principal); S00.03XA Contusion of scalp, initial encounter; M54.2 Cervicalgia; W01.0XXA Fall on same level from slipping, tripping and stumbling without subsequent striking against object, initial encounter; Y93.01 Activity, walking, marching and hiking; Y92.009 Unspecified place in unspecified non-institutional (private) residence as the place of occurrence of the external cause; I48.91 Unspecified atrial fibrillation; Z79.01 Long term (current) use of anticoagulants; I10 Essential (primary) hypertension; I73.9 Peripheral vascular disease, unspecified
CPT/HCPCS: 70450; 72125; 99283

== ENCOUNTER 2018-07-29 15:11 | Outpatient (CLI) | payer MEDICARE, OTHER ==
--- NOTE | 2018-07-29 16:02 | XRAY Report ---
Reason: COUGH Procedure Date: 07/29/2018 Accession Number: [id number] / [id number] Procedure: XR - Chest 2 View X-Ray CPT Code: 58879 FULL RESULT: EXAM: CHEST RADIOGRAPHY EXAM DATE: 07/29/2018 03:39 PM. CLINICAL HISTORY: COUGH. COMPARISON: 05/14/2018. TECHNIQUE: 2 views. FINDINGS: Lungs/Pleura: No focal opacities evident. No pleural effusion. No pneumothorax. Normal volumes. Mediastinum: Mild cardiac enlargement. Other: Negative bony structures for age. Aortic calcification. IMPRESSION: Clear lungs. No acute findings two-view chest x-ray. [facility]
== END 2018-07-29 15:12 | disposition home or self-care (01) ==
LOC: DI 15:11
PROVIDERS: ATTEND Physician Assistant Medical
DX: R05 Cough (principal)
CPT/HCPCS: 71046

== ENCOUNTER 2018-11-23 23:13 | Outpatient (CLI) | payer MEDICARE, OTHER | END 2018-11-23 23:14 | disposition critical access hospital (66) | LOC: EMS 23:13 | PROVIDERS: ATTEND Surgery | DX: R58 Hemorrhage, not elsewhere classified (principal); Z79.01 Long term (current) use of anticoagulants | CPT/HCPCS: A0425; A0429 ==

== ENCOUNTER 2018-11-23 23:39 | Emergency (ER) | payer MEDICARE, OTHER ==
--- NOTE | 2018-11-24 00:36 | ED Physician Documentation ---
History of Present Illness - Stated complaint Stated Complaint: BLEEDING FROM RLE - Chief complaint Chief Complaint: Ext Problem - History obtained from History obtained from: Patient - History of Present Illness Timing: Prior to arrival - Additonal information Additional information: This is a 88-year-old woman who woke up with her right leg bleeding profusely from a tiny little hole. It was shooting blood about 8 feet. She is on Xarelto for atrial fibrillation. She does not take aspirin. There was no trauma to the leg that she is aware of. She does not have any pain. She just had ultrasounds done on that right leg because of vascular issues. The studies were done at [place]. No numbness or tingling into the right foot. Patient was brought in by ambulance but lives with her grandson and his family. Review of Systems Constitutional: denies: Fever Cardiac: reports: Other (Significant varicosities to the right lower extremity. The patient relates these to a couple of surgery she has had on that leg.). 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 Cardiovascular: Other HEENT: Cataracts, Tonsil/Adenoidectomy - Present Medications Home Medications: Ambulatory Orders Medication Instructions Recorded Confirmed Losartan [Cozaar] 25 mg PO DAILY 07/16/13 11/24/18 Rivaroxaban [Xarelto] 15 mg PO DAILY 07/19/13 11/24/18 Diltiazem HCl [Taztia Xt] 360 mg PO DAILY 12/11/16 11/24/18 Furosemide 20 mg PO DAILY 12/12/16 11/24/18 Latanoprost 0.005% Ophth Drops 1 drops EACHEYE QPM 12/12/16 02/04/17 [Xalatan Ophth Drops] Timolol 0.5% Ophth Drops [Timoptic 1 drops EACHEYE BID 12/12/16 11/24/18 0.5% Ophth Drops] Potassium Chloride [K-Dur] 20 meq PO DAILYWM tablet 12/13/16 11/24/18 - Allergies Allergies/Adverse Reactions: Allergies Allergy/AdvReac Type Severity Reaction Status Date / Time streptomycin Allergy Mild Unknown Verified 11/23/18 23:46 ciprofloxacin [From Cipro] Allergy Unknown Unknown Verified 11/23/18 23:46 Penicillins Allergy Unknown Unknown Verified 11/23/18 23:46 Sulfa (Sulfonamide Allergy Unknown Unknown Verified 11/23/18 23:46 Antibiotics) tetanus toxoid, adsorbed Allergy Unknown Verified 11/23/18 23:46 - Social History Does the pt smoke?: No Smoking Status: Never smoker Does the pt drink ETOH?: No Does the pt have substance abuse?: No - Immunizations Immunizations are current?: Yes - POLST Patient has POLST: No POLST Status: DNR PD ED PE NORMAL - Vitals Vital signs reviewed: Yes (Very pleasant 88-year-old woman who is in no distress.) - General General: Alert and oriented X 3, No acute distress, Well developed/nourished - HEENT HEENT: Atraumatic, PERRL - Cardiac Cardiac: No murmur, Other (Irregular heartbeat. Pulse in the right foot was not palpable but I could Doppler a dorsalis pedis pulse.) - Abdomen Abdomen: Normal bowel sounds, Soft, Other (Minimal diffuse tenderness which the patient states is normal for her.) - Derm Derm: Other (The right leg has a network of small superficial varicosities. 1 of these is a small pinpoint hole overlying it and the blood is oozing out. Is well controlled with pressure.) - Extremities Extremities: No deformity, No tenderness to palpate, No edema - Neuro Neuro: Alert and oriented X 3, spud driller 2-12 intact, No motor deficit, No sensory deficit, Normal speech - Psych Psych: Normal mood, Normal affect Results - Vitals Vitals: Vital Signs - 24 hr 11/23/18 23:41 Temperature 36.7 C Heart Rate 72 Respiratory 14 Rate Blood Pressure 142/70 H O2 Saturation 96 Oxygen O2 Source Room air PD MEDICAL DECISION MAKING - ED course ED course: Without direct pressure applied to this varicosity it was oozing. Gelfoam was placed over it and pressure bandage was applied. Patient's grandson was here in the emergency department with her. 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 When you remove the bandage just be careful not to remove the Gelfoam or the bleeding will start again. If the bleeding restarts again, hold pressure and elevate the leg. Recheck if the bleeding starts again and you are unable to control it with direct pressure at home.
[2018-11-24 01:02] VITALS: BP 116/65
== END 2018-11-24 01:11 | disposition home or self-care (01) ==
LOC: EDUNIT# → ED 23:39
DX: I83.891 Varicose veins of right lower extremity with other complications (principal); I48.91 Unspecified atrial fibrillation; Z79.01 Long term (current) use of anticoagulants; I73.9 Peripheral vascular disease, unspecified; I10 Essential (primary) hypertension; Z66 Do not resuscitate
CPT/HCPCS: 99283

== ENCOUNTER 2018-12-09 09:43 | Day surgery (SDC) | payer MEDICARE, OTHER ==
[2018-12-09] MEDS ORDERED: LACTATED RINGERS 1,000 ML IV ONE (09:50)
[2018-12-09] MEDS ORDERED: LIDO GARGLE 30 ML BOTTLE ONE (10:26)
--- NOTE | 2018-12-09 10:32 | ANESTHESIA ---
Pre-Anesthesia VS, & Labs - Diagnosis Abdominal pain, weight loss - Procedure EGD Vital Signs: Temp Pulse Resp BP Pulse Ox 36.2 C L 84 16 174/90 H 96 12/09/18 09:54 12/09/18 09:54 12/09/18 09:54 12/09/18 09:54 12/09/18 09:54 Height 5 ft 2 in Weight (kg) 45 kg Body Mass Index 17.6 - NPO >8 hours - Is Patient ?: Not Applicable Home Medications and Allergies Losartan [Cozaar] 25 mg PO DAILY 07/16/13 Rivaroxaban [Xarelto] 15 mg PO DAILY 07/19/13 Diltiazem HCl [Taztia Xt] 360 mg PO DAILY 12/11/16 Furosemide 20 mg PO DAILY 12/12/16 Latanoprost 0.005% Ophth Drops [Xalatan Ophth Drops] 1 drops EACHEYE QPM 12/12/16 Timolol 0.5% Ophth Drops [Timoptic 0.5% Ophth Drops] 1 drops EACHEYE BID 12/12/16 Allergies/Adverse Reactions: Allergies Allergy/AdvReac Type Severity Reaction Status Date / Time streptomycin Allergy Mild Unknown Verified 11/23/18 23:46 ciprofloxacin [From Cipro] Allergy Unknown Unknown Verified 11/23/18 23:46 Penicillins Allergy Unknown Unknown Verified 11/23/18 23:46 Sulfa (Sulfonamide Allergy Unknown Unknown Verified 11/23/18 23:46 Antibiotics) tetanus toxoid, adsorbed Allergy Unknown Verified 11/23/18 23:46 Anes History & Medical History - Anesthetic History Anesthesia Complications: reports: No previous complications Family history of Anesthesia Complications: Denies Family history of Malignant Hyperthermia: Denies - Medical History Cardiovascular: reports: Hypertension, Coronary artery disease, Peripheral Vascular Disease, Atrial fibrillation, Other Pulmonary: reports: None Gastrointestinal: reports: GERD, Other Urinary: reports: None, Other Musculoskeletal: reports: None Endocrine/Autoimmune: reports: None Blood Disorders: reports: None Skin: reports: None Smoking Status: Current some day smoker Psychosocial: reports: No issues indicated - Surgical History General: Cholecystectomy, Bowel surgery Eyes Ears Nose Throat (EENT): Cataracts, Tonsil/Adenoidectomy Cardiothoracic: Other Gynecologic: Hysterectomy, Oophrectomy Exam General: Alert, Cooperative Dental: WNL Mouth Opening: Greater than 4 Fingerbreadths Neck Mobility: Normal Mallampati classification: II Thyromental Distance: 4-6 cm Respiratory: Lungs clear Cardiovascular: Gallops, Other (irregular) Neurological: Normal speech Mental/Cognitive Status: Normal for patient Cognitive Status: Within normal limits Plan Anesthesia Type: MAC Consent for Procedure(s) Verified and Reviewed: Yes Code Status: Attempt Resuscitation ASA classification: 3-Severe systemic disease Is this case an emergency?: No
[2018-12-09] MEDS ORDERED: LIDOCAINE-MPF 2% 5 ML VIAL IM ONE (10:55)
[2018-12-09] MEDS ORDERED: PROPOFOL 200 MG/20 ML VIAL IVP ONE (10:55)
[2018-12-09] MEDS ORDERED: PANTOPRAZOLE 40 MG TABLET PO ONE (12:00)
[2018-12-09 12:14] VITALS: BP 111/68
== END 2018-12-09 09:44 | disposition home or self-care (01) ==
LOC: SDS 09:43
PROVIDERS: ATTEND Surgery
PROC: 0DB68ZX Excision of Stomach, Via Natural or Artificial Opening Endoscopic, Diagnostic (ICD-10-PCS; 2018-12-09)
PROC: 0DB38ZX Excision of Lower Esophagus, Via Natural or Artificial Opening Endoscopic, Diagnostic (ICD-10-PCS; 2018-12-09)
PROC: 0DB98ZX Excision of Duodenum, Via Natural or Artificial Opening Endoscopic, Diagnostic (ICD-10-PCS; principal; 2018-12-09 10:45)
DX: K22.70 Barrett's esophagus without dysplasia (principal); K29.50 Unspecified chronic gastritis without bleeding; K21.9 Gastro-esophageal reflux disease without esophagitis; K44.9 Diaphragmatic hernia without obstruction or gangrene; K43.2 Incisional hernia without obstruction or gangrene; I48.91 Unspecified atrial fibrillation; F17.210 Nicotine dependence, cigarettes, uncomplicated; I10 Essential (primary) hypertension; I25.10 Atherosclerotic heart disease of native coronary artery without angina pectoris; I73.9 Peripheral vascular disease, unspecified; H40.9 Unspecified glaucoma; H35.30 Unspecified macular degeneration; Z79.01 Long term (current) use of anticoagulants
CPT/HCPCS: 43239; A9270; J7120

== ENCOUNTER 2018-12-15 09:31 | Outpatient (CLI) | payer MEDICARE, OTHER | END 2018-12-15 09:32 | disposition EMS.NT | LOC: EMS 09:31 | PROVIDERS: ATTEND Surgery | DX: R58 Hemorrhage, not elsewhere classified (principal) ==

== ENCOUNTER 2019-06-06 12:37 | Outpatient (CLI) | payer MEDICARE, OTHER | END 2019-06-06 12:38 | disposition critical access hospital (66) | LOC: EMS 12:37 | PROVIDERS: ATTEND Surgery | DX: M25.572 Pain in left ankle and joints of left foot (principal); W19.XXXA Unspecified fall, initial encounter; Y92.003 Bedroom of unspecified non-institutional (private) residence as the place of occurrence of the external cause | CPT/HCPCS: A0425; A0429 ==

== ENCOUNTER 2019-06-06 13:03 | Emergency (ER) | payer MEDICARE, OTHER ==
--- NOTE | 2019-06-06 13:15 | ED Physician Documentation ---
PD HPI LOWER EXT INJURY - Stated complaint Stated Complaint: ANKLE INJ - History obtained from History obtained from: Patient (89-year-old woman with history of atrial fibrillation on xarelto. About 48 hours ago she fell at home injuring her foot and ankle and has moderate pain but declines pain medication. No other injuries. She is barely able to walk at this point. 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, Oophrectomy Cardiovascular: Other HEENT: Cataracts, Tonsil/Adenoidectomy - Present Medications Home Medications: Ambulatory Orders Medication Instructions Recorded Confirmed Losartan [Cozaar] 25 mg PO DAILY 07/16/13 12/09/18 Rivaroxaban [Xarelto] 15 mg PO DAILY 07/19/13 12/09/18 Diltiazem HCl [Taztia Xt] 360 mg PO DAILY 12/11/16 12/09/18 Furosemide 20 mg PO DAILY 12/12/16 12/09/18 Latanoprost 0.005% Ophth Drops 1 drops EACHEYE QPM 12/12/16 12/09/18 [Xalatan Ophth Drops] Timolol 0.5% Ophth Drops [Timoptic 1 drops EACHEYE BID 12/12/16 12/09/18 0.5% Ophth Drops] Potassium Chloride [K-Dur] 20 meq PO DAILYWM tablet 12/13/16 12/09/18 Omeprazole 20 mg PO DAILY #35 capsule. 12/09/18 Hydrocodone/Acetaminophen 1 - 2 each PO Q6H PRN #14 tablet 06/06/19 [Hydrocodon-Acetaminophen 5-325] - Allergies Allergies/Adverse Reactions: Allergies Allergy/AdvReac Type Severity Reaction Status Date / Time streptomycin Allergy Mild Unknown Verified 06/06/19 13:14 ciprofloxacin [From Cipro] Allergy Unknown Unknown Verified 06/06/19 13:14 Penicillins Allergy Unknown Unknown Verified 06/06/19 13:14 Sulfa (Sulfonamide Allergy Unknown Unknown Verified 06/06/19 13:14 Antibiotics) tetanus toxoid, adsorbed Allergy Unknown Verified 06/06/19 13:14 adhesive tape AdvReac skin tears Verified 06/06/19 13:14 - Social History Does the pt smoke?: No Smoking Status: Current some day smoker Does the pt drink ETOH?: No Does the pt have substance abuse?: No - Immunizations Immunizations are current?: Yes - POLST Patient has POLST: No POLST Status: DNR PD ED PE NORMAL - Vitals Vital signs reviewed: Yes - General General: Alert and oriented X 3, No acute distress - Extremities Extremities: Other (There is no deformity of the left foot or ankle, she is diffusely tender about the left foot and ankle especially the foot laterally. In fact because it so diffuse her tenderness is hard to find a spot that is not tender. She has no tenderness above the tib-fib.) - Neuro Neuro: Alert and oriented X 3, Normal speech Results - Vitals Vitals: Vital Signs - 24 hr 06/06/19 06/06/19 13:15 13:21 Temperature 36.6 C Heart Rate 112 H 94 Respiratory 16 18 Rate Blood Pressure 185/89 H 192/87 H O2 Saturation 97 98 Oxygen O2 Source Room air - Rads (name of study) L foot/ankle XR Radiology: EMP read contemporaneously (vascular dz, nAD) Departure - Departure Disposition: 01 Home, Self Care Clinical Impression: Ankle injury Qualifiers: Encounter type: initial encounter Laterality: left Qualified Code(s): S99.912A - Unspecified injury of left ankle, initial encounter Injury of foot Qualifiers: Encounter type: initial encounter Laterality: left Qualified Code(s): S99.922A - Unspecified injury of left foot, initial encounter Condition: Good Record reviewed to determine appropriate education?: Yes Instructions: ED Sprain Ankle W X Ray Follow-Up: Jose Manuel Rivers MD [Provider Admit Priv/Credential] - Prescriptions: Hydrocodone/Acetaminophen [Hydrocodon-Acetaminophen 5-325] 1 - 2 each PO Q6H PRN #14 tablet PRN Reason: pain Comments: Follow-up with the orthopedic surgeon if not better within the week, return for new or worsening symptoms. Elevate and ice. Your blood pressure was elevated today on check into the emergency department. This does not mean that you have hypertension, it is a common phenomenon to come to the emergency department and have elevated blood pressure. I recommend that you see your primary care physician within the week to have it rechecked when you are feeling better. Do not drink or drive while taking narcotic pain medication. Note that many narcotic pain relievers also contain Tylenol/acetaminophen. Please ensure that your total dose of acetaminophen from all sources does not exceed 3 g (3000 mg) per day. You may get constipated while on this medication. Take a stool softener such as Colace twice a day while you are on it. Also add an dmzz-bym-tdictsn laxative such as senna or MiraLAX on any day that you do not have a bowel movement. If you received a narcotic pain medication or sedative while in the emergency department, do not drive for the next 24 hours.
[2019-06-06 13:22] VITALS: BP 192/87
--- NOTE | 2019-06-06 13:54 | XRAY Report ---
Reason: foot/ankle injury Procedure Date: 06/06/2019 Accession Number: [id number] / [id number] Procedure: XR - Ankle 3 View LT CPT Code: Final Report FULL RESULT: EXAM: LEFT ANKLE RADIOGRAPHY EXAM DATE: 06/06/2019 01:40 PM. CLINICAL HISTORY: Left foot and ankle injury. COMPARISON: ANKLE 3 VIEW LT 01/27/2015 10:15 AM. TECHNIQUE: 3 views. FINDINGS: Bones: Diffuse osteopenia. No acute fracture or bone lesion visualized. Joints: Normal. No effusion. No subluxations. The ankle mortise is normally aligned. Soft Tissues: Severe diffuse vascular calcifications are present throughout the calf and ankle. Venous stasis calcifications also noted about the anterior lower calf. IMPRESSION: 1. No fracture or effusion. 2. Severe vascular calcifications noted. RADIA
--- NOTE | 2019-06-06 13:59 | XRAY Report ---
Reason: foot/ankle injury Procedure Date: 06/06/2019 Accession Number: [id number] / [id number] Procedure: XR - Foot 3 View LT CPT Code: Final Report FULL RESULT: EXAM: LEFT FOOT RADIOGRAPHY EXAM DATE: 06/06/2019 01:40 PM. CLINICAL HISTORY: Foot/ankle injury. COMPARISON: None. TECHNIQUE: 3 views. FINDINGS: Bones: Negative for acute fracture. Joints: No subluxation or dislocation. Optimal visualization of first digit limited by positioning. Soft Tissues: There are moderate vascular calcifications. IMPRESSION: No acute fracture or dislocation. RADIA
== END 2019-06-06 14:47 | disposition home or self-care (01) ==
LOC: EDUNIT# → ED 13:03
DX: S99.912A Unspecified injury of left ankle, initial encounter (principal); S99.922A Unspecified injury of left foot, initial encounter; W01.0XXA Fall on same level from slipping, tripping and stumbling without subsequent striking against object, initial encounter; Y93.01 Activity, walking, marching and hiking; Y92.009 Unspecified place in unspecified non-institutional (private) residence as the place of occurrence of the external cause; I73.9 Peripheral vascular disease, unspecified; M25.872 Other specified joint disorders, left ankle and foot; I87.8 Other specified disorders of veins; I10 Essential (primary) hypertension; I48.91 Unspecified atrial fibrillation; Z79.01 Long term (current) use of anticoagulants; Z66 Do not resuscitate
CPT/HCPCS: 99283

== ENCOUNTER 2019-07-22 23:26 | Outpatient (CLI) | payer MEDICARE, OTHER | END 2019-07-22 23:27 | disposition critical access hospital (66) | LOC: EMS 23:26 | PROVIDERS: ATTEND Surgery | DX: R06.02 Shortness of breath (principal); R53.1 Weakness | CPT/HCPCS: A0425; A0427 ==

== ENCOUNTER 2019-07-27 11:26 | Outpatient (CLI) | payer MEDICARE, OTHER | END 2019-07-27 11:27 | disposition critical access hospital (66) | LOC: EMS 11:26 | PROVIDERS: ATTEND Surgery | DX: R06.02 Shortness of breath (principal); R05 Cough | CPT/HCPCS: A0425; A0427 ==

== ENCOUNTER 2019-07-27 11:52 | Emergency (ER) | payer MEDICARE, OTHER ==
--- NOTE | 2019-07-27 13:00 | XRAY Report ---
Reason: cough Procedure Date: 07/27/2019 Accession Number: [id number] / [id number] Procedure: XR - Chest 1 View X-Ray CPT Code: 38511 Final Report FULL RESULT: EXAM: CHEST RADIOGRAPHY EXAM DATE: 07/27/2019 12:42 PM. CLINICAL HISTORY: Cough. COMPARISON: CHEST 2 VIEW 07/23/2019 12:21 AM. TECHNIQUE: 1 view. FINDINGS: Lungs/Pleura: No focal consolidation evident. No pleural effusion. No pneumothorax. Lung volumes have decreased compared to prior study, when there was previously hyperinflation. Mediastinum: Tortuous thoracic aorta with atherosclerotic calcifications. Enlarged cardiac silhouette. Other: Bones appear osteopenic. Elongated calcification cephalad to left humeral head are compatible with tendinosis. IMPRESSION: 1. Cardiomegaly. 2. No consolidation. RADIA
[2019-07-27 13:03] LABS: BASOPHILS % (AUTO) 0.1 %; EOSINOPHILS # (AUTO) 0.2 10^3/uL (0.0-0.7); EOSINOPHILS % (AUTO) 2.3 %; HGB - HEMOGLOBIN 12.7 g/dL (12.0-16.0); LYMPHOCYTES % (AUTO) 13.7 %; MEAN CORPUSCULAR HEMOGLOBIN 31.4 pg (27.0-31.0); MEAN CORPUSCULAR HGB CONC 32.4 g/dL (32.0-36.0); MEAN CORPUSCULAR VOLUME 96.8 fL (81.0-99.0); MEAN PLATELET VOLUME 10.9 fL (7.9-10.8); MONOCYTES # (AUTO) 1.3 10^3/uL (0.0-1.0); MONOCYTES % (AUTO) 18.4 %; NEUTROPHILS # (AUTO) 4.5 10^3/uL (1.5-6.6); NEUTROPHILS % (AUTO) 64.8 %; PLT - PLATELET COUNT 154 10^3/uL (130-450); RED BLOOD COUNT 4.05 10^6/uL (4.20-5.40); WHITE BLOOD COUNT 6.9 x10^3/uL (4.8-10.8)
--- NOTE | 2019-07-27 13:10 | ED Physician Documentation ---
PD HPI DYSPNEA - Stated complaint Stated Complaint: SOA - Chief complaint Chief Complaint: Resp - History obtained from History obtained from: Patient, Family - History of Present Illness Timing - onset: How many weeks ago (2) Timing - onset during: Rest Timing - duration: Weeks (2) Timing - details: Gradual onset Pain level max: 0 Pain level now: 0 Inciting event(s): Other (states used to use inhalers, but hasn't for several years. Smokes about 1/3ppd) Improved by: O2, Inhaler/neb, Rest Worsened by: Exertion, Laying flat, Coughing Associated symptoms: Cough, Wheezing. No: Fever, Hemoptysis, Chest pain / discomfort, Palpitations, Diaphoresis, Bilateral edema, Unilateral edema Recently seen: Clinic (sent from clinic this am for O2 sat of 85%. now at 100% on RA after duoneb) Review of Systems Constitutional: denies: Fever, Chills Ears: denies: Ear pain Nose: denies: Rhinorrhea / runny nose, Congestion Throat: denies: Sore throat Cardiac: denies: Chest pain / pressure Respiratory: reports: Dyspnea, Cough, Wheezing GI: denies: Vomiting, Diarrhea Skin: denies: Rash Musculoskeletal: denies: Neck pain, Back pain Neurologic: denies: Focal weakness, Numbness, Confused, Headache PD PAST MEDICAL HISTORY - Past Medical History Past Medical History: Yes Cardiovascular: Hypertension, Coronary artery disease, Peripheral Vascular Disease, Atrial fibrillation, Other Respiratory: None Neuro: None Endocrine/Autoimmune: None GI: GERD, Other : None, Other HEENT: Glaucoma Psych: None Musculoskeletal: None Derm: None - Past Surgical History Past Surgical History: Yes General: Cholecystectomy, Bowel surgery 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, 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 Cardiovascular: Other HEENT: Cataracts, Tonsil/Adenoidectomy - Present Medications Home Medications: Ambulatory Orders Medication Instructions Recorded Confirmed Losartan [Cozaar] 25 mg PO DAILY 07/16/13 07/23/19 Rivaroxaban [Xarelto] 15 mg PO DAILY 07/19/13 07/23/19 Diltiazem HCl [Taztia Xt] 360 mg PO DAILY 12/11/16 07/23/19 Furosemide 20 mg PO DAILY 12/12/16 07/23/19 Latanoprost 0.005% Ophth Drops 1 drops EACHEYE QPM 12/12/16 07/23/19 [Xalatan Ophth Drops] Timolol 0.5% Ophth Drops [Timoptic 1 drops EACHEYE BID 12/12/16 07/23/19 0.5% Ophth Drops] Potassium Chloride [K-Dur] 20 meq PO DAILYWM tablet 12/13/16 07/23/19 Omeprazole 20 mg PO DAILY #35 capsule. 12/09/18 07/23/19 Hydrocodone/Acetaminophen 1 - 2 each PO Q6H PRN #14 tablet 06/06/19 07/23/19 [Hydrocodon-Acetaminophen 5-325] Colchicine 0.6 mg PO DAILY 07/23/19 07/23/19 Escitalopram [Lexapro] 10 mg PO DAILY 07/23/19 07/23/19 Metoprolol Succinate 25 mg PO DAILY 07/23/19 07/23/19 Albuterol Sulf [Ventolin Hfa 1 - 2 puffs INH Q4HR PRN #1 inhaler 07/27/19 Inhaler] Ipratropium/Albuterol [Combivent 1 puffs IH Q6H #1 aer.w.adap 07/27/19 Respimat] predniSONE [Deltasone] 10 mg PO [id number] #42 tab 07/27/19 - Allergies Allergies/Adverse Reactions: Allergies Allergy/AdvReac Type Severity Reaction Status Date / Time streptomycin Allergy Mild Unknown Verified 07/27/19 12:02 ciprofloxacin [From Cipro] Allergy Unknown Unknown Verified 07/27/19 12:02 Penicillins Allergy Unknown Unknown Verified 07/27/19 12:02 Sulfa (Sulfonamide Allergy Unknown Unknown Verified 07/27/19 12:02 Antibiotics) tetanus toxoid, adsorbed Allergy Unknown Verified 07/27/19 12:02 adhesive tape AdvReac skin tears Verified 07/27/19 12:02 lorazepam AdvReac Anxiety Verified 07/27/19 12:02 - Social History Does the pt smoke?: No Smoking Status: Former smoker Does the pt drink ETOH?: No Does the pt have substance abuse?: No - Immunizations Immunizations are current?: Yes - POLST Patient has POLST: No POLST Status: DNR PD ED PE NORMAL - Vitals Vital signs reviewed: Yes - General General: Alert and oriented X 3, No acute distress - HEENT HEENT: Moist mucous membranes - Neck Neck: Supple, no meningeal sign - Cardiac Cardiac: RRR - Respiratory Respiratory: No respiratory distress, Other (Diminished breath sounds bilaterally) - Abdomen Abdomen: Soft, Non tender, Non distended - Derm Derm: Warm and dry - Extremities Extremities: No edema - Neuro Neuro: Alert and oriented X 3 Results - Vitals Vitals: Vital Signs - 24 hr 07/27/19 07/27/19 07/27/19 11:54 14:00 14:39 Temperature 36.2 C L 36.4 C L Heart Rate 100 89 83 Respiratory 20 23 16 Rate Blood Pressure 125/69 136/74 H O2 Saturation 100 99 07/27/19 15:51 Temperature 36.6 C Heart Rate 73 Respiratory 21 Rate Blood Pressure 126/75 O2 Saturation 98 Oxygen O2 Source Room air - EKG (time done) 1339 Rate: Rate (enter#) (77) Rhythm: Atrial fibrillation [place]: Normal Intervals: RBBB Ischemia: Normal ST segments, Q waves (II, III, aVF) - Labs Labs: Laboratory Tests 07/27/19 07/27/19 07/27/19 12:48 13:27 14:17 WBC 6.9 RBC 4.05 L Hgb 12.7 Hct 39.2 MCV 96.8 MCH 31.4 H MCHC 32.4 RDW 14.0 Plt Count 154 MPV 10.9 H Neut # (Auto) 4.5 Lymph # (Auto) 1.0 L Upson # (Auto) 1.3 H Eos # (Auto) 0.2 Baso # (Auto) 0.0 Absolute Nucleated RBC 0.00 Nucleated RBC % 0.0 Sodium Potassium Chloride Carbon Dioxide Anion Gap BUN Creatinine Estimated GFR (MDRD) Glucose Calcium Total Bilirubin AST ALT Alkaline Phosphatase Troponin I High Sens B-Natriuretic Peptide 700 H Total Protein Albumin Globulin Albumin/Globulin Ratio Lipase Urine Color YELLOW Urine Clarity CLEAR Urine pH 6.5 Ur Specific [place] 1.015 Urine Protein NEGATIVE Urine Glucose (UA) NEGATIVE Urine Ketones NEGATIVE Urine Occult Blood NEGATIVE Urine Nitrite NEGATIVE Urine Bilirubin NEGATIVE Urine Urobilinogen 0.2 (NORMAL) Ur Leukocyte Esterase NEGATIVE Ur Microscopic Review NOT INDICATED Urine Culture Comments NOT INDICATED 07/27/19 07/27/19 14:17 14:17 WBC RBC Hgb Hct MCV MCH MCHC RDW Plt Count MPV Neut # (Auto) Lymph # (Auto) Upson # (Auto) Eos # (Auto) Baso # (Auto) Absolute Nucleated RBC Nucleated RBC % Sodium 134 L Potassium 3.7 Chloride 91 L Carbon Dioxide 28 Anion Gap 15.0 H BUN 32 H Creatinine 1.6 H Estimated GFR (MDRD) 30 L Glucose 75 Calcium 10.3 Total Bilirubin 1.3 H AST 21 ALT 15 Alkaline Phosphatase 61 Troponin I High Sens 33.2 H* B-Natriuretic Peptide Total Protein 6.2 L Albumin 3.8 Globulin 2.4 Albumin/Globulin Ratio 1.6 Lipase 40 Urine Color Urine Clarity Urine pH Ur Specific Dell Urine Protein Urine Glucose (UA) Urine Ketones Urine Occult Blood Urine Nitrite Urine Bilirubin Urine Urobilinogen Ur Leukocyte Esterase Ur Microscopic Review Urine Culture Comments - Rads (name of study) Chest x-ray Radiology: Prelim report reviewed, EMP read contemporaneously, See rad report (Cardiomegaly without consolidation) chest CT Radiology: Prelim report reviewed, EMP read contemporaneously, See rad report (Hyperinflation, with small centrilobular cystic changes at the lung apices. No consolidations identified. Cardiomegaly. ) PD MEDICAL DECISION MAKING - ED course Complexity details: reviewed results, re-evaluated patient, considered differential, d/w patient, d/w family ED course: 89-year-old female with what appears to be COPD and emphysema. She still smokes 1/3-1/4 of a pack per day. She is not on inhalers at home. Given steroids here. Will prescribe albuterol and Combivent for home. Recommend she follow-up with her doctor for further care. No hypoxia. No respiratory distress. Ambulating without difficulty. Patient and family counseled regarding signs and symptoms for which I believe and urgent re-evaluation would be necessary. Patient with good understanding of and agreement to plan and is comfortable going home at this time This document was made in part using voice recognition software. While efforts are made to proofread this document, sound alike and grammatical errors may occur. Departure - Departure Disposition: 01 Home, Self Care Clinical Impression: COPD (chronic obstructive pulmonary disease) Qualifiers: COPD type: unspecified COPD Qualified Code(s): J44.9 - Chronic obstructive pulmonary disease, unspecified Condition: Good Instructions: ED COPD Flare Follow-Up: Douglas Drake MD [Primary Care Provider] - Within 1 week Prescriptions: Albuterol Sulf [Ventolin Hfa Inhaler] 1 - 2 puffs INH Q4HR PRN #1 inhaler PRN Reason: Shortness Of Air/Wheezing Ipratropium/Albuterol [Combivent Respimat] 1 puffs IH Q6H #1 aer.w.adap predniSONE [Deltasone] 10 mg PO [id number] #42 tab Comments: Use the medications as prescribed. Return if you worsen. Follow-up with your doctor for further care. Discharge Date/Time: 07/27/19 16:08
[2019-07-27] MEDS ORDERED: SODIUM CHLORIDE 0.9% 500 ML IV ONE (13:12)
[2019-07-27 13:45] LABS: BILIRUBIN,URINE NEGATIVE (NEGATIVE); GLUCOSE, URINE (UA) NEGATIVE (NEGATIVE); KETONES,URINE (UA) NEGATIVE (NEGATIVE); LEUKOCYTE ESTERASE, URINE NEGATIVE (NEGATIVE); NITRITE,URINE NEGATIVE (NEGATIVE); OCCULT BLOOD,URINE NEGATIVE (NEGATIVE); PH,URINE 6.5 PH (5.0-7.5); PROTEIN,URINE NEGATIVE (NEGATIVE); UROBILINOGEN,URINE 0.2 (NORMAL) E.U./dL (NORMAL)
[2019-07-27 13:46] LABS: CLARITY,URINE CLEAR (CLEAR)
[2019-07-27] MEDS ORDERED: ALBUTEROL NEB 2.5 MG/3 ML INH STA (14:03)
--- NOTE | 2019-07-27 14:14 | CT Report ---
Reason: dyspnea Procedure Date: 07/27/2019 Accession Number: [id number] / [id number] Procedure: CT - CHEST WO CPT Code: Final Report FULL RESULT: EXAM: CT CHEST WITHOUT CONTRAST. EXAM DATE: 07/27/2019 01:53 PM. CLINICAL HISTORY: Dyspnea. COMPARISONS: CHEST 2 VIEW 07/23/2019 12:21 AM. TECHNIQUE: Routine helical CT imaging was performed through the chest. IV contrast: None. Reconstructions: Coronal and sagittal. In accordance with CT protocol optimization, one or more of the following dose reduction techniques were utilized for this exam: automated exposure control, adjustment of mA and/or KV based on patient size, or use of iterative reconstructive technique. FINDINGS: Lungs/Pleura: Mild centrilobular cystic changes at the lung apices. Scattered tiny calcified pleural plaques bilaterally. Minimal subpleural atelectasis at the posterior lung bases. No significant areas of interstitial thickening. No consolidations or pleural fluid collections. No bronchiectasis. 3 mm granuloma in the subpleural posterior left lower lobe. Moderate hyperinflation. Moderate cardiomegaly with moderate coronary arterial calcifications. No pericardial effusion. No pathologically enlarged lymph nodes. Prominent substernal thyroid. Mediastinum: Normal. No adenopathy or masses. The heart and great vessels are normal. Bones: Grade 1 superior endplate compressive change at L2. Subcentimeter subchondral sclerotic change at the superior endplate of T9, indeterminate, and possibly a bone island. Visualized Abdomen: Unremarkable. Other: None. IMPRESSION: Hyperinflation, with small centrilobular cystic changes at the lung apices. No consolidations identified. Cardiomegaly. RADIA
[2019-07-27] MEDS ORDERED: predniSONE 20 MG TABLET PO STA (14:15)
[2019-07-27 14:35] LABS: ALBUMIN 3.8 g/dL (3.2-5.5); ALBUMIN/GLOBULIN RATIO 1.6 (1.0-2.2); BILIRUBIN,TOTAL 1.3 mg/dL (0.2-1.0); CALCIUM 10.3 mg/dL (8.5-10.3); CREATININE 1.6 mg/dL (0.4-1.0); TOTAL PROTEIN 6.2 g/dL (6.7-8.2)
[2019-07-27 15:53] VITALS: BP 126/75
== END 2019-07-27 16:08 | disposition home or self-care (01) ==
LOC: EDUNIT# → ED 11:52
DX: J44.9 Chronic obstructive pulmonary disease, unspecified (principal); I10 Essential (primary) hypertension; F17.200 Nicotine dependence, unspecified, uncomplicated; Z66 Do not resuscitate
CPT/HCPCS: 36415; 71045; 71250; 80053; 81003; 83690; 83880; 84484; 85025; 93005; 94640; 96360; 99284; J7512; 81001; 87086

== ENCOUNTER 2019-08-11 13:38 | Outpatient (CLI) | payer MEDICARE, OTHER | END 2019-08-11 13:39 | disposition home or self-care (01) | LOC: LAB.S 13:38 | PROVIDERS: ATTEND Registered Nurse | DX: M10.9 Gout, unspecified (principal) | CPT/HCPCS: 36415; 84550 ==

== ENCOUNTER 2019-08-27 11:31 | Outpatient (CLI) | payer MEDICARE, OTHER | END 2019-08-27 11:32 | disposition critical access hospital (66) | LOC: EMS 11:31 | PROVIDERS: ATTEND Surgery | DX: M79.672 Pain in left foot (principal) | CPT/HCPCS: A0425; A0429 ==

== ENCOUNTER 2019-08-27 12:02 | Emergency (ER) | payer MEDICARE, OTHER ==
--- NOTE | 2019-08-27 13:25 | ED Physician Documentation ---
PD HPI BACK PAIN - Stated complaint Stated Complaint: BACK PX - Chief complaint Chief Complaint: Wound - History obtained from History obtained from: Patient - History of Present Illness Timing - onset: How many days ago (2) Timing - duration: Days (2) Timing - details: Abrupt onset, Still present Location: Lower (sacral and tailbone area.) Quality: Pain Associated symptoms: No: Fever, Weakness, Numbness, Incontinent of urine, Unable to urinate Improves with: Rest Worsened by: Movement Contributing factors: Other (she states she lost balance and fell as she was having pain in left toe and heel, so having antalgic gait with that. Fell back onto buttock and has had pain more than usual in low back, sacral and tailbone area. Has chronic lumbar pain previously.) Recently seen: Not recently seen Review of Systems Constitutional: denies: Fever, Chills Nose: denies: Rhinorrhea / runny nose, Congestion Throat: denies: Sore throat Respiratory: denies: Cough GI: denies: Abdominal Pain, Nausea, Vomiting Skin: reports: Lesions (has had redness and pain/tender left great toe and heel, being treated for gout for few weeks, without improvement. Has ulcerations of the skin in those areas the past several days now. Mild drainage.). 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, 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 Cardiovascular: Other HEENT: Cataracts, Tonsil/Adenoidectomy - Present Medications Home Medications: Ambulatory Orders Medication Instructions Recorded Confirmed Losartan [Cozaar] 25 mg PO DAILY 07/16/13 08/27/19 Rivaroxaban [Xarelto] 15 mg PO DAILY 07/19/13 08/27/19 Diltiazem HCl [Taztia Xt] 360 mg PO DAILY 12/11/16 08/27/19 Furosemide 20 mg PO DAILY 12/12/16 08/27/19 Latanoprost 0.005% Ophth Drops 1 drops EACHEYE QPM 12/12/16 08/27/19 [Xalatan Ophth Drops] Timolol 0.5% Ophth Drops [Timoptic 1 drops EACHEYE BID 12/12/16 08/27/19 0.5% Ophth Drops] Potassium Chloride [K-Dur] 20 meq PO DAILYWM tablet 12/13/16 08/27/19 Hydrocodone/Acetaminophen 1 - 2 each PO Q6H PRN #14 tablet 06/06/19 08/27/19 [Hydrocodon-Acetaminophen 5-325] Colchicine 0.6 mg PO DAILY 07/23/19 08/27/19 Escitalopram [Lexapro] 10 mg PO DAILY 07/23/19 08/27/19 Metoprolol Succinate 25 mg PO DAILY 07/23/19 08/27/19 Albuterol Sulf [Ventolin Hfa 1 - 2 puffs INH Q4HR PRN #1 inhaler 07/27/19 08/27/19 Inhaler] Ipratropium/Albuterol [Combivent 1 puffs IH Q6H #1 aer.w.adap 07/27/19 08/27/19 Respimat] Acetaminophen [Tylenol] 650 mg PO TID #30 tab 08/27/19 Calcitonin [Fortical] 1 sprays ROSALINE DAILY #1 bottle 08/27/19 Doxycycline Monohydrate 100 mg PO BID #14 tablet 08/27/19 Famotidine 20 mg PO DAILY 08/27/19 08/27/19 Mupirocin 1 applic TP TID #15 g 08/27/19 allopurinoL [Allopurinol] 100 mg PO DAILY 08/27/19 08/27/19 - Allergies Allergies/Adverse Reactions: Allergies Allergy/AdvReac Type Severity Reaction Status Date / Time streptomycin Allergy Mild Unknown Verified 08/27/19 12:17 ciprofloxacin [From Cipro] Allergy Unknown Unknown Verified 08/27/19 12:17 Penicillins Allergy Unknown Unknown Verified 08/27/19 12:17 Sulfa (Sulfonamide Allergy Unknown Unknown Verified 08/27/19 12:17 Antibiotics) tetanus toxoid, adsorbed Allergy Unknown Verified 08/27/19 12:17 adhesive tape AdvReac skin tears Verified 08/27/19 12:17 lorazepam AdvReac Anxiety Verified 08/27/19 12:17 - Social History Does the pt smoke?: No Smoking Status: Never smoker Does the pt drink ETOH?: No Does the pt have substance abuse?: No - Immunizations Immunizations are current?: Yes - POLST Patient has POLST: No POLST Status: DNR PD ED PE NORMAL - Vitals Vital signs reviewed: Yes - General General: Alert and oriented X 3, No acute distress, Well developed/nourished - HEENT HEENT: Atraumatic - Neck Neck: Supple, no meningeal sign, No bony TTP, No adenopathy - Cardiac Cardiac: RRR, No murmur - Respiratory Respiratory: Clear bilaterally - Abdomen Abdomen: Soft, Non tender - Back Back: No CVA TTP, Other (not tender in lumbar area itself. Has tenderness in posterior pelvis/sacral area and toward tailbone without deformity. ) - Derm Derm: Normal color, Warm and dry - Extremities Extremities: No edema, No calf tenderness / cord, Other (left great toe and heel with localized redness, tender and both with superficial ulcerations. The heel has mild discharge in bandaid there. No fluctuance. ) - Neuro Neuro: Alert and oriented X 3, No motor deficit, No sensory deficit, Normal speech Results - Vitals Vitals: Oxygen O2 Source Room air - Labs Labs: Microbiology 08/27/19 13:40 Wound Culture - Preliminary Toe - Left Big - Rads (name of study) pelvic CT/lumbar CT Radiology: Prelim report reviewed (likely transverse sacral fracture S4 and S5 level. Age indeterminant superior ramus fracture. ), See rad report left foot Radiology: Prelim report reviewed (osteopenia. No noted bone erosions in areas of concern. ), See rad report PD MEDICAL DECISION MAKING - ED course Complexity details: considered differential (she is hurting in sacral area and CT showing possible S4 fracture. Does not have numbness in buttocks nor inguinal area. No urinary incontinence. Treat with pain meds. Can try calcitonin (studies mainly in compression fractures). Her toe and heel appear more like infection and not gout at this point. ), d/w patient Departure - Departure Disposition: 01 Home, Self Care Clinical Impression: Foot infection Accidental fall Qualifiers: Encounter type: initial encounter Qualified Code(s): W19.XXXA - Unspecified fall, initial encounter Sacral fracture, closed Qualifiers: Encounter type: initial encounter Zone of sacrum fracture: unspecified portion of sacrum Qualified Code(s): S32.10XA - Unspecified fracture of sacrum, initial encounter for closed fracture Condition: Stable Record reviewed to determine appropriate education?: Yes Instructions: ED Fx Pelvis Follow-Up: Abbie Wisdom ARNP [Primary Care Provider] - Prescriptions: Acetaminophen [Tylenol] 650 mg PO TID #30 tab Calcitonin [Fortical] 1 sprays ROSALINE DAILY #1 bottle Doxycycline Monohydrate 100 mg PO BID #14 tablet Mupirocin 1 applic TP TID #15 g Comments: Continue your current medications. Use your walker when up and around to help with your balance since your foot is sore. It does look more like a skin infection of the toe and heel more than gout at this point. You can hold off on any gout medicines per se at this point instead use doxycycline antibiotic twice daily for a week and mupirocin topical antibiotic once or twice daily. Use calcitonin nasal spray to help try to reduce the time of pain for the sacral fracture. This was small nondisplaced fracture in the tailbone area and so no particular treatment for it. Tylenol 650 mg 3 times a day. Add to that the previously prescribed hydrocodone every 6-8 hours if needed. Follow-up with your primary care next week, call for an appointment. Return to the ER if worse. Discharge Date/Time: 08/27/19 16:58
[2019-08-27] MEDS ORDERED: HYDROmorphone 1 MG/ML CARPUJECT IM STA (13:43)
[2019-08-27] MEDS ORDERED: ACETAMINOPHEN 325 MG TABLET PO STA (13:46)
--- NOTE | 2019-08-27 14:43 | CT Report ---
Reason: fall with pain to sacral/lumbar area Procedure Date: 08/27/2019 Accession Number: [id number] / [id number] Procedure: CT - LUMBAR SPINE WO CPT Code: Final Report FULL RESULT: EXAM: CT LUMBAR SPINE WITHOUT CONTRAST EXAM DATE: 08/27/2019 02:15 PM. CLINICAL HISTORY: Fall with pain to sacral/lumbar area. COMPARISONS: None. TECHNIQUE: Thin-section axial images were acquired of the lumbar spine from T12 to S1 without contrast. Post-processing: Coronal and sagittal reformats. Other: None. In accordance with CT protocol optimization, one or more of the following dose reduction techniques were utilized for this exam: automated exposure control, adjustment of mA and/or KV based on patient size, or use of iterative reconstructive technique. FINDINGS: Alignment: No scoliosis or spondylolisthesis. Bones: Five njl-tad-bthocce lumbar vertebral bodies are present. Questionable mild disruption of the proximal cortex of the transverse process of the left L3 region demonstrates no surrounding soft tissue changes and no displacement to corroborate a potential fracture. There is an anterior wedge fracture at L2 with approximately 25% loss of height anteriorly, age indeterminate. No surrounding soft tissue stranding is seen. No other convincing acute fracture. Disk Levels/Facets: There are multilevel degenerative changes with loss of disk space height which is complete at L5-S1 where endplate sclerosis is noted. Degenerative posterior disk osteophyte complexes are prominently seen at L3-L4 and L4-L5 as well as at L1-L2. Musculature: Normal. No fatty atrophy. Other: Prominent atherosclerotic disease is noted. IMPRESSION: Age indeterminate L2 anterior wedge compression fracture. Correlate mildly irregular appearance of the left L3 transverse process for absence of focal tenderness to confirm the radiologic impression that this is not an acute injury. RADIA
--- NOTE | 2019-08-27 15:08 | CT Report ---
Reason: fall to buttock -pain sacral/lumbar Procedure Date: 08/27/2019 Accession Number: [id number] / [id number] Procedure: CT - PELVIS WO CPT Code: Final Report FULL RESULT: EXAM: CT BONY PELVIS WITHOUT CONTRAST EXAM DATE: 08/27/2019 02:15 PM. CLINICAL HISTORY: Fall to buttock -pain sacral/lumbar. COMPARISON: None. TECHNIQUE: Thin-section axial images were acquired of the pelvis without contrast. Post-processing: Coronal and sagittal reformats. Other: None. In accordance with CT protocol optimization, one or more of the following dose reduction techniques were utilized for this exam: automated exposure control, adjustment of mA and/or KV based on patient size, or use of iterative reconstructive technique. FINDINGS: Bones: Osteopenia. Evaluation for nondisplaced fracture limited on CT, particularly in the setting of diffuse osteopenia. Minimally impacted transverse fracture fourth and fifth sacral segments, likely acute given the presacral fat stranding. Subtle trabecular distortion of the bilateral superior pubic rami at the junctions with the pubic bodies, left greater than right, age indeterminate. Streak artifact from left hip prosthesis moderately limits evaluation of that region. Lucency surrounds the acetabular component measuring up to 3 mm at the anterior superior aspect. No gross lucency adjacent to the femoral component. Subtle trabecular distortion at the superior aspect greater trochanter, age indeterminate (coronal images 126 through 142). Lower lumbar spine: Degenerative disk and facet changes partially visualized with severe disk height loss at L5-S1. Please see dedicated CT lumbar spine performed on the same day for further details. Sacroiliac Joints: Mild to moderate degenerative changes bilaterally. Symphysis Pubis: Mild degenerative changes. Right Hip: Mild to moderate degenerative changes. Suggestion of small joint effusion. Left Hip: Angle of the acetabular component on the coronal images measures 3 degrees relative to horizontal. Anteversion on the axial sequence difficult to assess due to significantly decreased lateral inclination. No large joint effusion visualized. Musculature: Mild to moderate fatty atrophy throughout the musculature, most prominent in the posterior paraspinous muscles. Significantly limited evaluation for muscle edema on CT. Suggestion of mild edema in the left gluteus aarti muscle at the inferior aspect. Pelvic Cavity: Fat stranding partially visualized at the inferior poles bilateral kidneys, right greater than left, nonspecific. This may be due to scar. Severe calcified atherosclerosis in the abdominal aorta and bilateral iliac arteries. Gas and fluid-filled small bowel partially visualized. Bowel loop in the anterior aspect lower abdomen measures 0.2 cm transverse. Mild fat stranding in the presacral space. Other: Multiple soft tissue calcifications over the bilateral gluteal regions. IMPRESSION: 1. Limited evaluation for nondisplaced fracture on CT, particularly in the setting of osteopenia. 2. Nondisplaced transverse fractures of the S4 and S5 segments, likely acute. 3. Possible subtle impaction fractures bilateral superior pubic rami, left greater than right, age indeterminate. MRI could be performed to evaluate for bone marrow edema if patient is able. 4. Artifact from left hip prosthesis moderately limits evaluation of that region. 5. Possible subtle impaction fracture superior aspect left greater trochanter, age indeterminant, versus artifact. 6. Lucency adjacent to the acetabular component, concerning for loosening. 7. Decreased lateral angulation of the acetabular component measuring 3 degrees. 8. Possible edema on the left gluteus aarti muscle. 9. Mildly prominent fluid and gas filled small bowel partially visualized. Recommend clinical correlate. RADIA
[2019-08-27 15:13] VITALS: BP 151/93
[2019-08-27] MEDS ORDERED: DOXYCYCLINE 100 MG TABLET PO STA (15:43)
--- NOTE | 2019-08-27 16:07 | XRAY Report ---
Reason: heel and toe wounds/redness Procedure Date: 08/27/2019 Accession Number: [id number] / [id number] Procedure: XR - Foot 3 View LT CPT Code: Final Report FULL RESULT: Final Report Begin EXAM: LEFT FOOT RADIOGRAPHY EXAM DATE: 08/27/2019 02:25 PM. CLINICAL HISTORY: Trauma. COMPARISON: None. TECHNIQUE: 3 views. FINDINGS: Bones: The bones are qualitatively osteopenic; this limits evaluation for underlying fractures or masses. Within these limitations there are rimlike calcifications surrounding the first metatarsophalangeal joint without convincing associated osseous destructive change. No fractures or bone lesions. No convincing osseous destructive lesion in the heel region detected. Joints: Normal. No subluxations. Soft Tissues: Atherosclerotic changes are noted. No soft tissue gas in the region of the heel. IMPRESSION: Increased periarticular calcifications in the region of the first metatarsophalangeal joint. Osteopenia. No convincing soft tissue gas or osseous destruction in the region of the heel. RADIA
== END 2019-08-27 16:58 | disposition home or self-care (01) ==
LOC: EDBD → EDUNIT# → ED 12:02
DX: S32.19XA Other fracture of sacrum, initial encounter for closed fracture (principal); W18.30XA Fall on same level, unspecified, initial encounter; L08.9 Local infection of the skin and subcutaneous tissue, unspecified; L97.429 Non-pressure chronic ulcer of left heel and midfoot with unspecified severity; L97.529 Non-pressure chronic ulcer of other part of left foot with unspecified severity; M85.89 Other specified disorders of bone density and structure, multiple sites; M51.37 Other intervertebral disc degeneration, lumbosacral region; I48.91 Unspecified atrial fibrillation; Z79.01 Long term (current) use of anticoagulants; I10 Essential (primary) hypertension; I73.9 Peripheral vascular disease, unspecified; Z88.0 Allergy status to penicillin; Z88.1 Allergy status to other antibiotic agents; Z88.2 Allergy status to sulfonamides; Z66 Do not resuscitate
CPT/HCPCS: 72131; 72192; 73630; 87070; 87077; 87181; 87205; 96372; 99284; A9270; J1170

== ENCOUNTER 2019-10-04 14:59 | Emergency (ER) | payer MEDICARE, OTHER ==
--- NOTE | 2019-10-04 15:31 | ED Physician Documentation ---
PD HPI LOWER EXT INJURY - Stated complaint Stated Complaint: BILAT FOOT WOUNDS - Chief complaint Chief Complaint: Ext Problem - History obtained from History obtained from: Patient, Family (gson) - History of Present Illness PD HPI LOW EXT INJURY LOCATION: Other (This is a kendrick 89-year-old woman with history of A. fib and vascular disease. She sees Dr. Shah, vascular surgeon in [facility]. She is had trouble with her feet, specifically both great toes for the last several months. She has painful redness of both of them. She was treated for gout subsequently had a wound culture from the left great toe showing Pseudomonas and was on Cipro. Despite all that the wounds continue to fester and she is not really getting any better. She denies fevers or chills.) Review of Systems Ten Systems: 10 systems reviewed and negative Eyes: reports: Reviewed and negative Ears: reports: Reviewed and negative Cardiac: reports: Reviewed and negative PD PAST MEDICAL HISTORY - Past Medical History Cardiovascular: Hypertension, Coronary artery disease, Peripheral Vascular Disease, Atrial fibrillation, Other Respiratory: None Neuro: None Endocrine/Autoimmune: None GI: GERD, Other : None, Other HEENT: Glaucoma Psych: None Musculoskeletal: None Derm: None - Past Surgical History Past Surgical History: Yes General: Cholecystectomy, Bowel surgery 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, 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 Cardiovascular: Other HEENT: Cataracts, Tonsil/Adenoidectomy - Present Medications Home Medications: Ambulatory Orders Medication Instructions Recorded Confirmed Losartan [Cozaar] 25 mg PO DAILY 07/16/13 08/27/19 Rivaroxaban [Xarelto] 15 mg PO DAILY 07/19/13 08/27/19 Diltiazem HCl [Taztia Xt] 360 mg PO DAILY 12/11/16 08/27/19 Furosemide 20 mg PO DAILY 12/12/16 08/27/19 Latanoprost 0.005% Ophth Drops 1 drops EACHEYE QPM 12/12/16 08/27/19 [Xalatan Ophth Drops] Timolol 0.5% Ophth Drops [Timoptic 1 drops EACHEYE BID 12/12/16 08/27/19 0.5% Ophth Drops] Potassium Chloride [K-Dur] 20 meq PO DAILYWM tablet 12/13/16 08/27/19 Hydrocodone/Acetaminophen 1 - 2 each PO Q6H PRN #14 tablet 06/06/19 08/27/19 [Hydrocodon-Acetaminophen 5-325] Colchicine 0.6 mg PO DAILY 07/23/19 08/27/19 Escitalopram [Lexapro] 10 mg PO DAILY 07/23/19 08/27/19 Metoprolol Succinate 25 mg PO DAILY 07/23/19 08/27/19 Albuterol Sulf [Ventolin Hfa 1 - 2 puffs INH Q4HR PRN #1 inhaler 07/27/19 08/27/19 Inhaler] Ipratropium/Albuterol [Combivent 1 puffs IH Q6H #1 aer.w.adap 07/27/19 08/27/19 Respimat] Acetaminophen [Tylenol] 650 mg PO TID #30 tab 08/27/19 Calcitonin [Fortical] 1 sprays ROSALINE DAILY #1 bottle 08/27/19 Doxycycline Monohydrate 100 mg PO BID #14 tablet 08/27/19 Famotidine 20 mg PO DAILY 08/27/19 08/27/19 Mupirocin 1 applic TP TID #15 g 08/27/19 allopurinoL [Allopurinol] 100 mg PO DAILY 08/27/19 08/27/19 Ciprofloxacin HCl [Cipro] 500 mg PO BID #20 tablet 10/04/19 - Allergies Allergies/Adverse Reactions: Allergies Allergy/AdvReac Type Severity Reaction Status Date / Time streptomycin Allergy Mild Unknown Verified 10/04/19 15:09 ciprofloxacin [From Cipro] Allergy Unknown Unknown Verified 10/04/19 15:09 Penicillins Allergy Unknown Unknown Verified 10/04/19 15:09 Sulfa (Sulfonamide Allergy Unknown Unknown Verified 10/04/19 15:09 Antibiotics) tetanus toxoid, adsorbed Allergy Unknown Verified 10/04/19 15:09 adhesive tape AdvReac skin tears Verified 10/04/19 15:09 lorazepam AdvReac Anxiety Verified 10/04/19 15:09 - Social History Does the pt smoke?: No Smoking Status: Never smoker Does the pt drink ETOH?: No Does the pt have substance abuse?: No - Family History Family history: reports: Non contributory - Immunizations Immunizations are current?: Yes - POLST Patient has POLST: No POLST Status: DNR PD ED PE NORMAL - Vitals Vital signs reviewed: Yes - General General: Alert and oriented X 3, No acute distress - HEENT HEENT: PERRL, EOMI - Neck Neck: Supple, no meningeal sign, No bony TTP - Respiratory Respiratory: No respiratory distress, Clear bilaterally - Abdomen Abdomen: Non tender - Back Back: No CVA TTP, No spinal TTP - Derm Derm: Normal color, Warm and dry - Extremities Extremities: Other (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 She also has some small ulcers on the bottom of the left third toe. Not too much in the way of active infection, some redness of both great toes. I am able to Doppler a monophasic pulse in the right DP. No Doppler signals in the right PT, or the DP or PT on the left.) - Neuro Neuro: Alert and oriented X 3, Normal speech - Psych Psych: Normal mood, Normal affect Results - Vitals Vitals: Vital Signs - 24 hr 10/04/19 10/04/19 10/04/19 15:09 15:16 17:16 Temperature 36.5 C Heart Rate 87 80 82 Respiratory 16 16 16 Rate Blood Pressure 100/42 L 133/70 H 129/74 O2 Saturation 99 100 96 10/04/19 10/04/19 18:57 20:04 Temperature Heart Rate 62 68 Respiratory 16 16 Rate Blood Pressure 113/55 L 98/59 L O2 Saturation 94 96 Oxygen O2 Source Room air - Labs Labs: Laboratory Tests 10/04/19 10/04/19 10/04/19 15:34 15:34 15:34 WBC 7.6 RBC 3.83 L Hgb 12.5 Hct 37.5 MCV 97.9 MCH 32.6 H MCHC 33.3 RDW 14.9 Plt Count 184 MPV 10.1 Neut # (Auto) 5.5 Lymph # (Auto) 1.5 [place] # (Auto) 0.6 Eos # (Auto) 0.0 Baso # (Auto) 0.0 Absolute Nucleated RBC 0.00 Nucleated RBC % 0.0 ESR 18 Sodium 131 L Potassium 4.2 Chloride 95 L Carbon Dioxide 24 Anion Gap 12.0 BUN 28 H Creatinine 1.6 H Estimated GFR (MDRD) 30 L Glucose 106 H Calcium 8.7 Total Bilirubin 1.0 AST 17 ALT 10 Alkaline Phosphatase 73 C-Reactive Protein 1.1 H Total Protein 6.3 L Albumin 3.5 Globulin 2.8 Albumin/Globulin Ratio 1.3 Lipase 28 - Rads (name of study) X-rays of both feet Radiology: EMP read contemporaneously (No acute abnormalities or evidence for osteomyelitis. Soft tissue defect lateral distal left foot overlying the lateral aspect of the fifth metatarsal head. Degenerative changes of both feet.) PD MEDICAL DECISION MAKING - ED course ED course: This is an 89-year-old woman with peripheral vascular disease, she is anticoagulated on Xarelto. She presents with chronic wounds of both feet, the great toes mostly but also under the fifth metatarsal head on the left. Basically pulseless feet on exam of unclear chronicity. The history is of a slowly progressive issue with multiple rounds of antibiotics as an opposed to an acute thrombosis of the leg. Doppler ultrasound of both legs note suspected focal stenosis between the left proximal and mid SFA, no obtainable Doppler tracing of either anterior tibial tibial artery and an incidentally noted left Matthews's cyst. Call was placed to vascular surgery in [place] at 7:42 PM for consultation. I spoke with Dr. Zachary Barnett, vascular surgeon in [place], they will see her in consultation. Nothing that would suggest need for transfer [place]. We will start her back on Cipro. Departure - Departure Disposition: 01 Home, Self Care Clinical Impression: Anticoagulant long-term use, Foot infection Condition: Good Record reviewed to determine appropriate education?: Yes Instructions: ED PVD Prescriptions: Ciprofloxacin HCl [Cipro] 500 mg PO BID #20 tablet Comments: You can stop colchicine and allopurinol. We are restarting you on antibiotics, but honestly only if we are able to fix your arteries will you get better. I spoke with Dr. Ericka wood, he would like you to call the office tomorrow, he says they will see you as soon as tomorrow for consultation. Return for new or worsening symptoms. Continue your blood thinner.
[2019-10-04 15:41] LABS: BASOPHILS % (AUTO) 0.3 %; EOSINOPHILS % (AUTO) 0.1 %; HGB - HEMOGLOBIN 12.5 g/dL (12.0-16.0); LYMPHOCYTES # (AUTO) 1.5 10^3/uL (1.5-3.5); LYMPHOCYTES % (AUTO) 19.1 %; MEAN CORPUSCULAR HEMOGLOBIN 32.6 pg (27.0-31.0); MEAN CORPUSCULAR HGB CONC 33.3 g/dL (32.0-36.0); MEAN CORPUSCULAR VOLUME 97.9 fL (81.0-99.0); MEAN PLATELET VOLUME 10.1 fL (7.9-10.8); MONOCYTES # (AUTO) 0.6 10^3/uL (0.0-1.0); MONOCYTES % (AUTO) 8.1 %; NEUTROPHILS # (AUTO) 5.5 10^3/uL (1.5-6.6); NEUTROPHILS % (AUTO) 71.6 %; PLT - PLATELET COUNT 184 10^3/uL (130-450); RED BLOOD COUNT 3.83 10^6/uL (4.20-5.40); RED CELL DISTRIBUTION WIDTH 14.9 % (12.0-15.0); WHITE BLOOD COUNT 7.6 x10^3/uL (4.8-10.8)
[2019-10-04 15:58] LABS: ALBUMIN 3.5 g/dL (3.2-5.5); ALBUMIN/GLOBULIN RATIO 1.3 (1.0-2.2); CALCIUM 8.7 mg/dL (8.5-10.3); CREATININE 1.6 mg/dL (0.4-1.0); CRP - C-REACTIVE PROTEIN 1.1 mg/dL (0-1.0); TOTAL PROTEIN 6.3 g/dL (6.7-8.2)
[2019-10-04] MEDS ORDERED: HYDROcod/ACETAM 5/325 MG TABLET PO STA (16:11)
--- NOTE | 2019-10-04 16:52 | XRAY Report ---
Reason: infections Procedure Date: 10/04/2019 Accession Number: [id number] / [id number] Procedure: XR - Foot 3 View BILAT CPT Code: Final Report FULL RESULT: EXAMS: 1. Right Foot Radiography 2. Left Foot Radiography EXAM DATE: 10/04/2019 03:59 PM. CLINICAL HISTORY: Bilateral foot pain. Worse pain on the left. Infections. COMPARISON: FOOT 3 VIEW LT 08/27/2019 2:16 PM. TECHNIQUE: 3 views each foot. FINDINGS: Right: Bones: Bones appear demineralized. No acute fracture. Degenerative spurring. No distinct bony erosions are identified. No periosteal reaction. Joints: Degenerative changes of the interphalangeal joints and first metatarsophalangeal joint and right midfoot. No dislocation. Soft Tissues: Soft tissue edema. No radiopaque foreign bodies. No subcutaneous air/gas. Left: Bones: Bones appear demineralized. No acute fracture. Degenerative spurring. No definitive bony erosions are identified. No periosteal reaction. Joints: Degenerative changes of the interphalangeal joints and first MTP joint and joints of the left midfoot. No dislocation. Soft Tissues: Soft tissue edema. Soft tissue defect lateral to the head of the fifth metatarsal better visualized on the current study. Distal Achilles calcific tendinosis. No subcutaneous air/gas. IMPRESSION: 1. No acute osseous abnormalities. 2. No definitive evidence for osteomyelitis. 3. Soft tissue defect/ulceration lateral distal left foot overlying the lateral aspect of the fifth metatarsal head. 4. Degenerative changes of the right and left foot. RADIA
[2019-10-04] MEDS ORDERED: HYDROmorphone 1 MG/ML CARPUJECT IM STA (17:32)
--- NOTE | 2019-10-04 19:39 | Ultrasound Report ---
Reason: pulseless feet/wounds Procedure Date: 10/04/2019 Accession Number: [id number] / [id number] Procedure: US - Duplex Lwr Ext Arterial Bilat CPT Code: Final Report FULL RESULT: EXAM: BILATERAL LOWER EXTREMITY ARTERIAL DOPPLER ULTRASOUND EXAM DATE: 10/04/2019 07:00 PM. CLINICAL HISTORY: Pulseless feet/wounds. COMPARISON: None. TECHNIQUE: Real-time sonographic vascular imaging was performed by the plastics plater, utilizing color-flow, Doppler flow, and spectral analysis. Multiple advertising account representative static images were saved for review. Technically difficult exam due to debilitated fragile patient condition. FINDINGS: Diffusely calcified arterial plaques with variable acoustic shadowing. A fluid collection in the medial left popliteal fossa measures 4.8 x 1.6 x 3.2 cm. Right Lower Extremity: BLOCKERS SKIVER: PSV 53.3 cm/sec, monophasic waveform. PSFA: PSV 29 cm/sec, monophasic waveform. MSFA: PSV 21.8 cm/sec, monophasic waveform. DSFA: PSV 23.5 cm/sec, monophasic waveform. PFA: PSV 50 cm/sec, monophasic waveform. POP: PSV 22.5 cm/sec, monophasic waveform. TARA: Not obtained. SUPERVISOR LITHARGE: PSV 11.9 cm/sec, monophasic waveform. LILY: PSV 22.4 cm/sec, monophasic waveform. DPA: PSV 5.7 cm/sec, monophasic waveform. Left Lower Extremity: BLOCKERS SKIVER: PSV 59.2 cm/sec, monophasic waveform. PSFA: PSV 16.9 cm/sec, monophasic waveform. MSFA: PSV 35.6 cm/sec, monophasic waveform. DSFA: PSV 30.5 cm/sec, monophasic waveform. PFA: PSV 41 cm/sec, monophasic waveform. POP: PSV 22 cm/sec, monophasic waveform. TARA: Not obtained. SUPERVISOR LITHARGE: PSV 2.9 cm/sec, monophasic waveform. LILY: PSV 7.4 cm/sec, monophasic waveform. DPA: PSV 5.2 cm/sec, monophasic waveform. IMPRESSION: 1. Peripheral vascular disease. Technically difficult exam. 2. Suspect focal stenosis between left proximal/mid SFA. 3. No obvious stenosis in the right thigh. 4. Technically limited evaluation of bilateral calves. No obtainable Doppler tracing of either TARA. 5. An incidental left Matthews's cyst. RADIA
[2019-10-04] MEDS ORDERED: CIPROFLOXACIN 250 MG TABLET PO STA (20:12)
[2019-10-04 20:36] VITALS: BP 99/65
== END 2019-10-04 20:36 | disposition home or self-care (01) ==
LOC: ED 14:59
DX: I73.9 Peripheral vascular disease, unspecified (principal); L97.529 Non-pressure chronic ulcer of other part of left foot with unspecified severity; L08.9 Local infection of the skin and subcutaneous tissue, unspecified; I10 Essential (primary) hypertension; Z79.01 Long term (current) use of anticoagulants; Z66 Do not resuscitate
CPT/HCPCS: 36415; 73630; 80053; 83690; 85025; 85651; 86140; 93925; 96372; 99284; A9270; J1170

== ENCOUNTER 2019-10-07 08:16 | Outpatient (CLI) | payer MEDICARE, OTHER | END 2019-10-07 08:17 | disposition short-term general hospital (02) | LOC: EMS 08:16 | PROVIDERS: ATTEND Surgery | DX: R47.81 Slurred speech (principal); R53.1 Weakness | CPT/HCPCS: A0425; A0429 ==

== ENCOUNTER 2019-10-31 07:20 | Outpatient (CLI) | payer MEDICARE, OTHER | END 2019-10-31 07:21 | disposition critical access hospital (66) | LOC: EMS 07:20 | PROVIDERS: ATTEND Surgery | DX: M54.9 Dorsalgia, unspecified (principal); M54.2 Cervicalgia; M25.551 Pain in right hip; W06.XXXA Fall from bed, initial encounter; Y92.003 Bedroom of unspecified non-institutional (private) residence as the place of occurrence of the external cause | CPT/HCPCS: A0425; A0429 ==

== ENCOUNTER 2019-10-31 07:45 | Emergency (ER) | payer MEDICARE, OTHER ==
--- NOTE | 2019-10-31 08:27 | ED Physician Documentation ---
PD HPI Fall - Stated complaint Stated Complaint: GLF - Chief complaint Chief Complaint: Trauma Hd/Nk - History obtained from History obtained from: Patient, EMS - History of Present Illness Mechanism of injury: Unknown Fall distance: From bed Where injury occurred: Home Timing - onset: Today Injury(ies) location: Head, Neck, Back, Right Lower Extremity, Left Lower Extremity Quality of pain: Pain Associated symptoms: Neck pain, Hematemesis. No: LOC Worsens with: Movement, Palpation Contributing factors: Anticoagulated Similar symptoms before: Diagnosis (generalized chronic pain) Recently seen: Other (The patient is in hospice and has recently had her pain medication regimen changed. There has been addition of 2.5mg of methadone) - Additional information Additional information: 89-year-old female with severe peripheral vascular disease and recent CVA is on hospice and has chronic pain. She is on pain medications and this morning she fell out of bed she hit her head and she is complaining of head and neck pain the step grandson has called the ambulance. 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 Cardiovascular: Other HEENT: Cataracts, Tonsil/Adenoidectomy - Present Medications Home Medications: Ambulatory Orders Medication Instructions Recorded Confirmed Losartan [Cozaar] 25 mg PO DAILY 07/16/13 08/27/19 Rivaroxaban [Xarelto] 15 mg PO DAILY 07/19/13 08/27/19 Diltiazem HCl [Taztia Xt] 360 mg PO DAILY 12/11/16 08/27/19 Furosemide 20 mg PO DAILY 12/12/16 08/27/19 Latanoprost 0.005% Ophth Drops 1 drops EACHEYE QPM 12/12/16 08/27/19 [Xalatan Ophth Drops] Timolol 0.5% Ophth Drops [Timoptic 1 drops EACHEYE BID 12/12/16 08/27/19 0.5% Ophth Drops] Potassium Chloride [K-Dur] 20 meq PO DAILYWM tablet 12/13/16 08/27/19 Hydrocodone/Acetaminophen 1 - 2 each PO Q6H PRN #14 tablet 06/06/19 08/27/19 [Hydrocodon-Acetaminophen 5-325] Colchicine 0.6 mg PO DAILY 07/23/19 08/27/19 Escitalopram [Lexapro] 10 mg PO DAILY 07/23/19 08/27/19 Metoprolol Succinate 25 mg PO DAILY 07/23/19 08/27/19 Albuterol Sulf [Ventolin Hfa 1 - 2 puffs INH Q4HR PRN #1 inhaler 07/27/19 08/27/19 Inhaler] Ipratropium/Albuterol [Combivent 1 puffs IH Q6H #1 aer.w.adap 07/27/19 08/27/19 Respimat] Acetaminophen [Tylenol] 650 mg PO TID #30 tab 08/27/19 Calcitonin [Fortical] 1 sprays ROSALINE DAILY #1 bottle 08/27/19 Doxycycline Monohydrate 100 mg PO BID #14 tablet 08/27/19 Famotidine 20 mg PO DAILY 08/27/19 08/27/19 Mupirocin 1 applic TP TID #15 g 08/27/19 allopurinoL [Allopurinol] 100 mg PO DAILY 08/27/19 08/27/19 Ciprofloxacin HCl [Cipro] 500 mg PO BID #20 tablet 10/04/19 - Allergies Allergies/Adverse Reactions: Allergies Allergy/AdvReac Type Severity Reaction Status Date / Time streptomycin Allergy Mild Unknown Verified 10/04/19 15:09 ciprofloxacin [From Cipro] Allergy Unknown Unknown Verified 10/04/19 15:09 Penicillins Allergy Unknown Unknown Verified 10/04/19 15:09 Sulfa (Sulfonamide Allergy Unknown Unknown Verified 10/04/19 15:09 Antibiotics) amlodipine Allergy Unknown Verified 10/05/19 07:56 tetanus toxoid, adsorbed Allergy Unknown Verified 10/04/19 15:09 adhesive tape AdvReac skin tears Verified 10/04/19 15:09 lorazepam AdvReac Anxiety Verified 10/04/19 15:09 - Social History Does the pt smoke?: No Smoking Status: Never smoker Does the pt drink ETOH?: No Does the pt have substance abuse?: No - Immunizations Immunizations are current?: Yes - POLST Patient has POLST: No POLST Status: DNR PD ED PE NORMAL - Vitals Vital signs reviewed: Yes (hypertensivev) - General General: Other (Thin elderly female who appears mildly confused is complaining of pain all over and is on a backboard in a C-spine collar.) - HEENT HEENT: PERRL, EOMI, Other (There is a small hematoma to the left parietal area without step-off or crepitance.) - Neck Neck: Supple, no meningeal sign, Other (There is mild bony point tenderness without crepitance to the posterior cervical spine.) - Cardiac Cardiac: RRR, No murmur - Respiratory Respiratory: No respiratory distress, Clear bilaterally - Abdomen Abdomen: Soft, Non tender - Back Back: No CVA TTP, Other (Over the lower thoracic spine there is some mild erythema the patient complains of pain in this area there is no deformity to the area and no crepitance. The level of pain to palpation does not appear to escalate with palpation.) - Derm Derm: Normal color, Warm and dry - Extremities Extremities: Other (There is evidence of dry gangrene to the great toes bilaterally that involves just the tip of each toe worse on the left than the right there is some mild erythema to the tips of the other toes. There is dry lichenified skin to the to the feet and there is no edema. She is complaining of pain in the hips she is able to move her hips to a full range of motion she does complain of pain all over. ) - Neuro Neuro: sales promoter 2-12 intact, No motor deficit, No sensory deficit, Normal speech Eye Opening: Spontaneous Motor: Obeys Commands Verbal: Confused GCS Score: 14 - Psych Psych: Other (The patient is in an irritated mood with a flat affect.) Results - Vitals Vitals: Vital Signs - 24 hr 10/31/19 10/31/19 07:48 07:51 Temperature 36.7 C Heart Rate 98 Respiratory 16 Rate Blood Pressure 188/101 H O2 Saturation 99 96 Oxygen O2 Source Room air PD MEDICAL DECISION MAKING - ED course Complexity details: d/w executive search consultant (Dr. Med Gonzalez the hospice physician has been in contact with the family and with the hospice nurse and arrangements are being made for consultation with the DURABLE POWER OF FLOORING MECHANIC the step grandson. The patient has been on hospice with the goal of comfort and she has multiple comorbidities and interventions on any specific incident will not be pursued. The recommendation is to forego any imaging and treat pain.) ED course: 89-year-old female with multiple comorbidities and severe peripheral vascular disease is on pain medication and hospice and has fallen out of her bed. She is complaining of pain all over her body injuries do not appear to be readily apparent she is moving all extremities and talking. The step tia Hedrick, agrees with no imaging and the hospice doctor Carlos has approved ambulance transport back to the residence. She is administered IM dilaudid here. Departure - Departure Disposition: 01 Home, Self Care Clinical Impression: Fall from bed, initial encounter Condition: Stable Instructions: ED Mechanical Fall Follow-Up: Abbie Wisdom ARNP [Primary Care Provider] -
[2019-10-31] MEDS ORDERED: ONDANSETRON ODT 4 MG TABLET TL STA (09:19)
[2019-10-31] MEDS ORDERED: HYDROmorphone 1 MG/ML CARPUJECT IM STA (09:19)
[2019-10-31] MEDS ORDERED: MORPHINE SOL 10 MG/0.5 ML SYRINGE PO STA (11:18)
[2019-10-31 11:30] VITALS: BP 101/52
== END 2019-10-31 11:31 | disposition home or self-care (01) ==
LOC: EDBD → EDUNIT# → ED 07:45
DX: S00.03XA Contusion of scalp, initial encounter (principal); W06.XXXA Fall from bed, initial encounter; Y92.003 Bedroom of unspecified non-institutional (private) residence as the place of occurrence of the external cause; I10 Essential (primary) hypertension; R41.0 Disorientation, unspecified; I73.9 Peripheral vascular disease, unspecified; Z66 Do not resuscitate
CPT/HCPCS: 99283; A9270; J1170; Q0162

== ENCOUNTER 2019-10-31 11:27 | Outpatient (CLI) | payer MEDICARE, OTHER | END 2019-10-31 11:28 | disposition home or self-care (01) | LOC: EMS 11:27 | PROVIDERS: ATTEND Surgery | DX: I73.9 Peripheral vascular disease, unspecified (principal); G89.29 Other chronic pain; Z74.01 Bed confinement status | CPT/HCPCS: A0425; A0428 ==